=== PATIENT | female | born 1975 | race Hispanic/Latino ===

== ENCOUNTER 2019-05-24 06:15 | Emergency (ER) | payer BC ==
[~2019-05-24] VITALS: Ht 149.9 cm; Wt 52.6 kg
[~2019-05-24 06:15] MED LIST: ASPIR 8181 MG PO; COUMADIN1 MG PO; PROPRANOLOL HCL10 MG PO; ZOLOFT50 MG PO
--- OUTSIDE RECORDS SUMMARY | 2019-05-24 06:19 | XMS REPORT | Summary of Care ---
Author Author Kathie Benítez M.A. Unknown Address Unknown Phone Unavailable Care Team Providers Care Dye Machine Operator Name Role Phone BENNETT PIERCE M.D. Unavailable Unavailable DUANE HEWITT, NOAH GLOVER Unavailable Unavailable PAULETTE BINTA MRAQUEZ Unavailable Unavailable Unavailable Unavailable Functional Status Name Dates Details Functional status health issues are not documented Status: Name Dates Details Cognitive status health issues are not documented Status: Problems Name Dates Details Encounter for monitoring testosterone replacement therapy (V58.83, Z51.81) Status: Active Dizziness (780.4, R42) Status: Active Hypoglycemia (251.2, E16.2) Status: Active Weight gain (783.1, R63.5) Status: Active Aspirin long-term use (V58.66, Z79.82) Status: Active Abnormal EKG (794.31, R94.31) Status: Active Fatigue (780.79, R53.83) Status: Active Headache (784.0, R51) Status: Active 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 * Start : 09-Mar-2017 Active Lovastatin 20 MG Oral Tablet TAKE 1 TABLET DAILY AT DINNER. * Quantity: 30 Refills: 6 BENNETT PIERCE M.D. * Start : 14-Aug-2017 Active Allergies and Adverse Reactions Name Dates Details Penicillins (Allergy) Status: Active Past Medical History Name Dates Details History of depression (V11.8, Z86.59) Status: Resolved History of endometriosis (V13.29, Z87.42) Status: Resolved History of pulmonary embolism (V12.55, Z86.711) Status: Resolved History of uterine leiomyoma (V13.29, Z86.018) Status: Resolved Procedures Procedure Dates Details [QLH] CMP W/EGFR Date: 08-Aug-2017 [QLH] LIPID PANEL Date: 08-Aug-2017 [L] Vitamin D, 25-Hydroxy, Total - Esoterix Date: 08-Aug-2017 [QLH] TESTOSTERONE, TOTAL Date: 08-Aug-2017 [QLH] TSH, 3RD GENERATION W/REFLEX TO FT4 Date: 08-Aug-2017 History of hysterectomy Completed History of section Completed History of abdominoplasty Completed History of breast augmentation Completed History of salpingo-oophorectomy Completed Immunization Name Dates Details Immunizations not documented Family History Name Dates Details Family history of High cholesterol (272.0, E78.00) Status: Active Family history of hypertension (V17.49, Z82.49) Status: Active Name Dates Details Family history of diabetes mellitus (V18.0, Z83.3) Status: Active Social History Name Dates Details - Status: Name Dates Details Never smoker Vital Signs Date Test Result Details [id number] BP Systolic 107 mm[Hg] Status: Comments: Location: E; Position: Sitting BP Diastolic 75 mm[Hg] Status: Comments: Location: [facility]; Position: Sitting Height 59 in Status: Weight 120.3125 lb Status: Body Mass Index Calculated 24.3 kg/m2 Status: Body Surface Area Calculated 1.49 m2 Status: Temperature 98.3 f Status: Comments: Method: Temporal Heart Rate 74 /min Status: Comments: Location: Brachial Artery; Respiration Rate 16 /min Status: Comments: Quality: Normal Results Date Description Value Details [id number] [QLH] LIPID PANEL CHOLESTEROL, TOTAL 251 mg/dl (Above high threshold) Range: <200 HDL CHOLESTEROL 47 mg/dl (Below low threshold) Range: >50 TRIGLYCERIDES 279 mg/dl (Above high threshold) Range: <150 LDL-CHOLESTEROL 158 {MG/DL__CAL} (Above high threshold) Comments: Reference range: <100 Desirable range <100 mg/dL for patients with CHD ordiabetes and <70 mg/dL for diabetic patients withknown heart disease. LDL-C is now calculated using the Amanda calculation, which is a validated novel method providing better accuracy than the Friedewald equation in the estimation of LDL- C. Jadiel MENDOZA et al. MASON. 2013;310(19): 7739-5535 (http://education.[employer]Wire/faq/KTF809) CHOL/HDLC RATIO 5.3 {CALC} (Above high threshold) Range: <5.0 NON HDL CHOLESTEROL 204 {MG/DL__CAL} (Above high threshold) Range: <130 Comments: For patients with diabetes plus 1 major ASCVD risk factor, treating to a non-HDL-C goal of <100 mg/dL (LDL-C of <70 mg/dL) is considered a therapeutic option. :20 [[facility]] CMP W/EGFR GLUCOSE 92 mg/dl (Normal) Range: 65-99 Comments: Fasting reference interval UREA NITROGEN (BUN) 17 mg/dl (Normal) Range: 7-25 CREATININE 0.73 mg/dl (Normal) Range: 0.50-1.10 eGFR NON- 102 {ML/MIN/1.7} (Normal) Range: > OR=60 eGFR 119 {ML/MIN/1.7} (Normal) Range: > OR=60 BUN/CREATININE RATIO NOT APPLICABLE {CALC} Range: 6-22 SODIUM 138 mmol/L (Normal) Range: 135-146 POTASSIUM 4.3 mmol/L (Normal) Range: 3.5-5.3 CHLORIDE 104 mmol/L (Normal) Range: 98-110 CARBON DIOXIDE 28 mmol/L (Normal) Range: 20-31 CALCIUM 9.4 mg/dl (Normal) Range: 8.6-10.2 PROTEIN, TOTAL 7.1 g/dl (Normal) Range: 6.1-8.1 ALBUMIN 4.2 g/dl (Normal) Range: 3.6-5.1 GLOBULIN 2.9 {G/DL__CALC} (Normal) Range: 1.9-3.7 ALBUMIN/GLOBULIN RATIO 1.4 {CALC} (Normal) Range: 1.0-2.5 BILIRUBIN, TOTAL 0.4 mg/dl (Normal) Range: 0.2-1.2 ALKALINE PHOSPHATE 85 u/l (Normal) Range: 33-115 AST 18 u/l (Normal) Range: 10-30 ALT 18 u/l (Normal) Range: 6-29 :20 [[facility]] CBC (INCLUDES DIFF/PLT) WHITE BLOOD CELL COUNT 6.3 {Thousand/u} (Normal) Range: 3.8-10.8 RED BLOOD CELL COUNT 4.60 {Million/uL} (Normal) Range: 3.80-5.10 HEMOGLOBIN 13.4 g/dl (Normal) Range: 11.7-15.5 HEMATOCRIT 39.9 % (Normal) Range: 35.0-45.0 MCV 86.7 fL (Normal) Range: 80.0-100.0 MCH 29.1 pg (Normal) Range: 27.0-33.0 MCHC 33.6 g/dl (Normal) Range: 32.0-36.0 RDW 13.4 % (Normal) Range: 11.0-15.0 PLATELET COUNT 312 {Thousand/u} (Normal) Range: 140-400 MPV 11.3 fL (Normal) Range: 7.5-12.5 ABSOLUTE NEUTROPHILS 3982 {cells/uL} (Normal) Range: 7355-8652 ABSOLUTE LYMPHOCYTES 1865 {cells/uL} (Normal) Range: 850-3900 ABSOLUTE MONOCYTES 302 {cells/uL} (Normal) Range: 200-950 ABSOLUTE EOSINOPHILS 120 {cells/uL} (Normal) Range: 15-500 ABSOLUTE BASOPHILS 32 {cells/uL} (Normal) Range: 0-200 NEUTROPHILS 63.2 % (Normal) LYMPHOCYTES 29.6 % (Normal) MONOCYTES 4.8 % (Normal) EOSINOPHILS 1.9 % (Normal) BASOPHILS 0.5 % (Normal) :20 [[facility]] TSH, 3RD GENERATION W/REFLEX TO FT4 TSH, 3RD GENERATION W/REFLEX TO FT4 1.52 {MIU/L} (Normal) Comments: Reference Range > or=20 Years 0.40-4.50 Ranges First trimester 0.26-2.66 Second trimester 0.55-2.73 Third trimester 0.43-2.91 :20 [[facility]] VITAMIN D, 25-HYDROXY, LC/MS/MS VITAMIN D, 25-OH, TOTAL 21 ng/ml (Below low threshold) Range: 30-100 Comments: Vitamin D Status 25-OH Vitamin D: Deficiency: <20 ng/mLInsufficiency: 20 - 29 ng/mLOptimal: > or=30 ng/mL For 25-OH Vitamin D testing on patients on D2-supplementation and patients for whom quantitation of D2 and D3 fractions is required, the QuestAssureD(TM)25-OH VIT D, (D2,D3), LC/MS/MS is recommended: order code 61288 (patients >2yrs). For more information on this test, go to:http://education.[employer]faq/HQZ440(This link is being provided for informational/educational purposes only.) 45-[id number]:20 [Q] TESTOSTERONE, TOTAL, LC/MS/MS Comments: REPORT COMMENT:FASTING:YES TESTOSTERONE, TOTAL, LC/MS/MS 13 ng/dl Range: 2-45 Comments: This test was developed and its analytical performance characteristics have been determined by [employer]. It has not been cleared or approved by the USFood and Drug Administration. This assay has been validated pursuant to the CLIA regulations and is used for clinical purposes. Plan of Care Name Dates Details Planned Observations Planned Goals not documented Interventions Provided Labs/Procedures/Imaging* [L] Vitamin D, 25-Hydroxy, Total - Esoterix; To Be Done: 08 Aug 2017 * [QLH] CMP W/EGFR; To Be Done: 08 Aug 2017 * [QLH] LIPID PANEL; To Be Done: 08 Aug 2017 * [QLH] TESTOSTERONE, TOTAL; To Be Done: 08 Aug 2017 * [QLH] TSH, 3RD GENERATION W/REFLEX TO FT4; To Be Done: 08 Aug 2017 * [QLH] CBC (INCLUDES DIFF/PLT); Done: 09 Aug 2017 Plan* For labs * To increase NSAIDs otc plus Buspar * Exercise for stress and tension Instructions Name Dates Details Instructions not documented Encounters Appointment; BINTA CALDWELL P.A. Encounter Diagnosis: Problem not documented On: 09-Mar-2017 10:00 Appointment; [facility] [place] [place] Encounter Diagnosis: Problem not documented On: 09-Mar-2017 16:00 Appointment; BINTA CALDWELL P.A. Encounter Diagnosis: Problem not documented On: 24-Mar-2017 16:00 Appointment; BINTA CALDWELL P.A. Encounter Diagnosis: Problem not documented On: 12-Apr-2017 11:00 Appointment; SUNG SALTER M.D. Encounter Diagnosis: Problem not documented On: 09-May-2017 10:00 Appointment; BINTA CALDWELL P.A. Encounter Diagnosis: Problem not documented On: 08-Aug-2017 14:00 Appointment; BENNETT PIERCE M.D. Encounter Diagnosis: Problem not documented On: 08-Aug-2017 16:00
[2019-05-24] MEDS ORDERED: FAMOTIDINE 20 MG/2 ML VIAL IV ONE (07:30)
[2019-05-24] MEDS ORDERED: ONDANSETRON HCL INJ 2MG/ML 2ML 2 MG/ML VIAL IV ONE (07:30)
[2019-05-24 07:51] LABS: BASOPHILS % 0.7 % (0.0-1.0); EOSINOPHILS # (AUTO) 0.2 (0.0-0.4); EOSINOPHILS % 2.7 % (0.0-6.0); HEMATOCRIT 37.8 % (34.2-44.1); HEMOGLOBIN 12.8 g/dL (12.0-16.0); LYMPHOCYTES # (AUTO) 1.4 (1.0-3.2); LYMPHOCYTES % 23.1 % (18.0-39.1); MEAN CORPUSCULAR HEMOGLOBIN 29.5 pg (28-32); MEAN CORPUSCULAR HGB CONC 33.9 g/dL (31-35); MEAN CORPUSCULAR VOLUME 87.1 fL (81-99); MONOCYTES # (AUTO) 0.3 (0.2-0.8); MONOCYTES % 5.2 % (4.4-11.3); NEUTROPHILS # (AUTO) 4.1 (2.1-6.9); NEUTROPHILS % 67.8 % (38.7-80.0); PLATELET COUNT 291 x10e3/uL (140-360); RED BLOOD COUNT 4.34 x10e6/uL (3.6-5.1); RED CELL DISTRIBUTION WIDTH 13.3 % (11.7-14.4)
[2019-05-24 08:14] LABS: ALANINE AMINOTRANSFERASE 14 IU/L (0-55); ALBUMIN 3.9 g/dL (3.5-5.0); ALBUMIN/GLOBULIN RATIO 1.2 (0.8-2.0); ALKALINE PHOSPHATASE 79 IU/L (40-150); ANION GAP 13.6 mmol/L (8-16); BLOOD UREA NITROGEN 15 mg/dL (7-26); BUN/CREATININE RATIO 20 (6-25); CALCIUM 9.3 mg/dL (8.4-10.2); CARBON DIOXIDE 23 mmol/L (22-29); CHLORIDE 102 mmol/L (98-107); CREATININE, SERUM 0.76 mg/dL (0.57-1.11); EST GLOMERULAR FILTRATION RATE > 60 ML/MIN (60-); GLUCOSE 112 mg/dL (74-118); POTASSIUM 3.6 mmol/L (3.5-5.1); SODIUM 135 mmol/L (136-145)
[2019-05-24 08:16] LABS: CLARITY,URINE HAZY (CLEAR); COLOR,URINE YELLOW (YELLOW)
[2019-05-24 08:17] LABS: BILIRUBIN,URINE NEGATIVE (NEGATIVE); KETONES,URINE NEGATIVE (NEGATIVE); LEUKOCYTE ESTERASE ,URINE NEGATIVE (NEGATIVE); NITRITE,URINE NEGATIVE (NEGATIVE); PROTEIN,URINE DIPSTICK NEGATIVE (NEGATIVE); URINE UROBILINOGEN 0.2 mg/dL (0.2 - 1)
[2019-05-24 08:18] LABS: BACTERIA,URINE MANY /HPF; EPITHELIAL CELLS,URINE MODERATE /LPF; RBC,URINE 0-5 /HPF (0-5)
--- NOTE | 2019-05-24 09:00 | Diagnostic Imaging Report ---
EXAMINATION: CHEST 2 VIEWS INDICATION: Fever COMPARISON: None FINDINGS: LINES/TUBES:None LUNGS:The lungs are well-inflated. No focal consolidation or pulmonary edema. PLEURA:No pleural effusion or pneumothorax. MEDIASTINUM:The cardiomediastinal silhouette appears normal in size and shape. BONES/SOFT TISSUES:No acute osseous injury. ABDOMEN:No free air under the diaphragm. IMPRESSION: No focal pneumonia or pulmonary edema. Signed by: Nia Payne MD on 05/24/2019 8:56 AM
--- NOTE | 2019-05-24 09:44 | Diagnostic Imaging Report ---
EXAM: CT Abdomen and Pelvis WITH intravenous contrast INDICATION: Abdominal pain COMPARISON: None. TECHNIQUE: Abdomen and pelvis were scanned utilizing a multidetector helical scanner from the lung base to the pubic symphysis after administration of IV contrast. Coronal and sagittal reformations were obtained. Routine protocol was performed. Scan was performed during portal venous phase. IV CONTRAST: 100mL of Isovue 370 ORAL CONTRAST: Water RADIATION DOSE: Total DLP: (DLP x 0.015 x size factor) mGy*cm Dose modulation, iterative reconstruction, and/or weight based adjustment of the mA/kV was utilized to reduce the radiation dose to as low as reasonably achievable. FINDINGS: LOWER THORAX: Partially visualized right breast implant. No lung consolidation. HEPATOBILIARY: Diffuse hepatic steatosis. 5 mm right hepatic hypodensity (series 2 image 19) is too small to characterize but likely represents a cyst. No other focal liver lesions. Normal gallbladder. SPLEEN: No splenomegaly. PANCREAS: No focal masses or ductal dilatation. ADRENALS: No adrenal nodules. KIDNEYS/URETERS: No hydronephrosis, stones, or solid mass lesions. PELVIC ORGANS/BLADDER: 2.3 cm left adnexal cystic structure likely represents a follicle. PERITONEUM / RETROPERITONEUM: No free air or fluid. LYMPH NODES: No lymphadenopathy. VESSELS: Unremarkable. GI TRACT: No distention or wall thickening. BONES AND SOFT TISSUES: Unremarkable. IMPRESSION: No acute findings in the abdomen or pelvis. Hepatic steatosis. Signed by: Nia Payne MD on 05/24/2019 9:41 AM
[2019-05-24] MEDS ORDERED: SODIUM CHLORIDE 0.9% 50ML 50 ML ONE (09:54)
[2019-05-24] MEDS ORDERED: IOPAMIDOL 370 MG/ML 200 ML INFUS..BTL INJ ONE (09:54)
== END 2019-05-24 09:30 | disposition home or self-care (01) ==
LOC: ER 06:15
DX: R10.13 Epigastric pain (principal); R11.0 Nausea; N30.90 Cystitis, unspecified without hematuria
CPT/HCPCS: 36415; 71046; 74177; 80053; 81001; 81025; 83690; 85025; 99284; J2405; Q9967

== ENCOUNTER 2020-05-07 17:25 | Emergency (ER) | payer BC ==
[~2020-05-07] VITALS: Ht 149.9 cm; Wt 52.6 kg
--- NOTE | 2020-05-07 17:31 | Emergency Department Note ---
History of Present Illnes History of Present Illness History of Present Illness This is a 44 year old female presents to the ED for palpitations with SOB . prior to arrival. Diastolic pressure of 61 mmHg . PMH of PE Historian: Patient Arrival Mode: Car Legislative Analyst Required: No Onset (how long ago): second(s) Radiation: Reports non-radiation Severity: mild Onset quality: sudden Timing of current episode: constant Progression: improving Chronicity: new Context: Reports hx of DVT/PE Relieving factors: none Exacerbating factors: none Associated symptoms: Reports denies other symptoms, Reports shortness of breath (SUNITA REYES DO) Past Medical/Family History Physician Review I have reviewed the patient's past medical and family history. Any updates have been documented here. (SUNITA REYES DO) Past Medical History Recent Fever: No Clinical Suspicion of Infectio: No New/Unexplained Change in Ment: No Past Medical History: Anxiety, Depression, DVT/PE Other Medical History: PULMONARY EMBOLISM FROM [id number] Panic Attacks OVERACTIVE BLADDER Past Surgical History: Hysterectomy, Other Surgery: tummy tuck breast augmentation; (SUNITA REYES DO) Social History Smoking Cessation: Never Smoker Alcohol Use: None Any Illegal Drug Use: No (SUNITA REYES DO) Other Last Tetanus: UNK (SUNITA REYES DO) Review of Systems Review of Systems Constitutional: Reports no symptoms EENTM: Reports no symptoms Cardiovascular: Reports palpitations Respiratory: Reports dyspnea Gastrointestinal: Reports no symptoms Genitourinary: Reports no symptoms Musculoskeletal: Reports no symptoms Integumentary: Reports no symptoms Neurological: Reports no symptoms Psychological: Reports no symptoms Endocrine: Reports no symptoms Hematological/Lymphatic: Reports no symptoms (SUNITA REYES DO) Physical Exam Related Data Allergies: Coded Allergies: Penicillins (Verified Adverse Reaction, Mild, VOMITING, 09/10/15) Vital signs reviewed: Yes (SUNITA REYES DO) Physical Exam CONSTITUTIONAL Constitutional: Present well-developed, Present well-nourished HENT HENT: Present normocephalic, Present atraumatic, Present oropharynx clear/moist, Present nose normal HENT L/R: Present left ext ear normal, Present right ext ear normal EYES Eyes: Reports PERRL, Reports conjunctivae normal NECK Neck: Present ROM normal PULMONARY Pulmonary: Present effort normal, Present breath sounds normal CARDIOVASCULAR Cardiovascular: Present regular rhythm, Present heart sounds normal, Present capillary refill normal, Present normal rate GASTROINTESTINAL Abdominal: Present soft, Present nontender, Present bowel sounds normal GENITOURINARY Genitourinary: Present exam deferred SKIN Skin: Present warm, Present dry MUSCULOSKELETAL Musculoskeletal: Present ROM normal NEUROLOGICAL Neurological: Present alert, Present oriented x 3, Present no gross motor or sensory deficits PSYCHOLOGICAL Psychological: Present mood/affect normal, Present judgement normal (REYES,SUNITA DO) Results Laboratory Laboratory Laboratory Tests Test 05/07/20 17:30 White Blood Count 7.90 x10e3/uL (4.8-10.8) Red Blood Count 4.60 x10e6/uL (3.6-5.1) Hemoglobin 13.3 g/dL (12.0-16.0) Hematocrit 40.2 % (34.2-44.1) Mean Corpuscular Volume 87.4 fL (81-99) Mean Corpuscular Hemoglobin 28.9 pg (28-32) Mean Corpuscular Hemoglobin Concent 33.1 g/dL (31-35) Red Cell Distribution Width 13.3 % (11.7-14.4) Platelet Count 364 x10e3/uL (140-360) Neutrophils (%) (Auto) 52.9 % (38.7-80.0) Lymphocytes (%) (Auto) 38.1 % (18.0-39.1) Monocytes (%) (Auto) 5.8 % (4.4-11.3) Eosinophils (%) (Auto) 2.0 % (0.0-6.0) Basophils (%) (Auto) 0.6 % (0.0-1.0) Neutrophils # (Auto) 4.2 (2.1-6.9) Lymphocytes # (Auto) 3.0 (1.0-3.2) Monocytes # (Auto) 0.5 (0.2-0.8) Eosinophils # (Auto) 0.2 (0.0-0.4) Basophils # (Auto) 0.1 (0.0-0.1) Absolute Immature Granulocyte (auto 0.05 x10e3/uL (0-0.1) Prothrombin Time 12.2 seconds (11.9-14.5) Prothromb Time International Ratio 0.87 Activated Partial Thromboplast Time 26.4 seconds (23.8-35.5) Urine Color Yellow (YELLOW) Urine Clarity Clear (CLEAR) Urine pH 7 (5 - 7) Urine Specific [place] 1.020 (1.010-1.025) Urine Protein Negative (NEGATIVE) Urine Glucose (UA) Negative (NEGATIVE) Urine Ketones Negative (NEGATIVE) Urine Blood Trace (NEGATIVE) Urine Nitrite Negative (NEGATIVE) Urine Bilirubin Negative (NEGATIVE) Urine Urobilinogen 0.2 mg/dL (0.2 - 1) Urine Leukocyte Esterase Negative (NEGATIVE) Urine RBC 0-5 /HPF (0-5) Urine WBC None /HPF (0-5) Urine Epithelial Cells None /LPF (NONE) Urine Bacteria Moderate /HPF (NONE) Urine Test Negative (NEGATIVE) Sodium Level 138 mmol/L (136-145) Potassium Level 3.6 mmol/L (3.5-5.1) Chloride Level 104 mmol/L (98-107) Carbon Dioxide Level 21 mmol/L (22-29) Anion Gap 16.6 mmol/L (8-16) Blood Urea Nitrogen 18 mg/dL (7-26) Creatinine 0.84 mg/dL (0.57-1.11) Estimat Glomerular Filtration Rate > 60 ML/MIN (60-) BUN/Creatinine Ratio 21 (6-25) Glucose Level 101 mg/dL (74-118) Calcium Level 9.2 mg/dL (8.4-10.2) Total Bilirubin 0.2 mg/dL (0.2-1.2) Aspartate Amino Transf (AST/SGOT) 16 IU/L (5-34) Alanine Aminotransferase (ALT/SGPT) 19 IU/L (0-55) Alkaline Phosphatase 99 IU/L (40-150) Creatine Kinase 88 IU/L (29-168) Creatine Kinase MB 1.20 ng/mL (0-5.0) Troponin I < 0.001 ng/mL (0-0.300) Total Protein 8.0 g/dL (6.5-8.1) Albumin 4.2 g/dL (3.5-5.0) Globulin 3.8 g/dL (2.3-3.5) Albumin/Globulin Ratio 1.1 (0.8-2.0) Lab results reviewed: Yes (TOMASZ BRITTON MD) Imaging Imaging results reviewed: Yes Impressions Procedure: [id number] CT/CT CHEST W Exam Date: 05/07/20 Exam Time: 1835 REPORT STATUS: Signed CT chest pulmonary embolism protocol CPT code: 55420 INDICATION: ^pe protocol, pt with h/o pe in past, now with sob ^[id number] ^1834 ^Y TECHNIQUE: Thin collimation axial images obtained through the level of the pulmonary arteries with additional imaging through the chest following the uneventful administration of 100 cc of low osmolar, nonionic intravenous contrast. Images reconstructed into coronal and sagittal MIPs for complete evaluation of the tortuous and overlapping pulmonary vascular structures and to reduce patient radiation dose. RADIATION DOSE: Total DLP: 386.6 mGy*cm Estimated effective dose: (DLP x 0.015 x size factor) mSv CTDIvol has been reviewed. It is below the limits set by the Radiation Protocol Committee (RPC). Dose reduction techniques used: Automated exposure control, adjustment of the mAs and/or kVp according to patient size, standardized low-dose protocol, and/or iterative reconstruction technique. COMPARISON: CT abdomen 05/24/2019. FINDINGS: Pulmonary artery: No filling defects are appreciated within the main, left, right, lobar or visualized segmental pulmonary arteries to suggest embolism. Aorta: The thoracic aorta is not aneurysmal. No evidence for dissection. The left vertebral artery arises to be from the aortic arch. Lymph nodes: No enlarged axillary, supraclavicular, mediastinal, or hilar lymph nodes. Thyroid: Visualized portions are normal. Mediastinum: The heart is normal in size. No pericardial effusion. The esophagus is collapsed but normal in appearance. Lungs: Right Lung: Mild apical pleural-parenchymal thickening. No infiltrate or nodule. Left Lung: Mild apical pleural-parenchymal thickening. No infiltrate or nodule. Small focus of subsegmental atelectasis in the inferior lingula. Airways: Clear. Pleura: No pleural effusion or pleural-based mass. Abdomen: Visualized portions are normal in appearance. Bones: No focal osseous lesions. Soft tissues: Bilateral breast prostheses appear intact.. IMPRESSION: 1. No evidence of pulmonary embolus or aortic dissection. 2. Mild biapical pleural parenchymal thickening. Please correlate with history of reactive airways disease. No evidence of pulmonary infiltrate or nodule. Signed by: Dr. Pam Bae MD on 05/07/2020 7:05 PM Dictated By: PAM BAE MD 04 Transcribed By: OPHELIA on 05/07/201904 COPY TO: TOMASZ BRITTON MD~ (TOMASZ BRITTON MD) Procedures 12 Lead ECG Interpretation ECG Interpretation : ECG: ECG 1 Legislative Analyst: Interpreted by ED physician Date: May 07, 2020 Time: 18:02 Prior ECG tracings: reviewed Rhythm: sinus rhythm Rate: normal BPM: 80 QRS axis: normal ST segments normal: Yes T waves normal: No T waves flattening: all, I, II, III, aVR, aVL, aVF, V1-V6, V1, V2, V3, V4, V5 Clinical Impression: non-specific ECG (SUNITA REYES DO) Assessment & Plan Medical Decision Making MDM 44 yom presents with palpitations. CMP, CBC, EKG, and cardiac enzymes ordered for consideration of ACS, PE, costocondritis, Chest wall pain, and pneumothorax considered. labs, imaging and EKG reviewed . (SUNITA REYES DO) Assessment & Plan Final Impression: (1) Palpitations (SUNITA REYES DO) Depart Disposition: HOME, SELF-penitentiary Meds Reported Medications Aspirin (ASPIR 81) 81 Mg Tablet.dr, 81 MG PO DAILY 03/17/17 Sertraline Hcl (ZOLOFT) 50 Mg Tablet, 50 MG PO DAILY, #30 TAB 03/17/17 Propranolol Hcl (PROPRANOLOL HCL) 10 Mg Tablet, 10 MG PO BID, TAB 03/17/17 SUNITA REYES DO May 07, 2020 17:31 TOMASZ BRITTON MD May 07, 2020 18:47
[2020-05-07 18:02] LABS: BASOPHILS # (AUTO) 0.1 (0.0-0.1); BASOPHILS % 0.6 % (0.0-1.0); EOSINOPHILS # (AUTO) 0.2 (0.0-0.4); HEMATOCRIT 40.2 % (34.2-44.1); HEMOGLOBIN 13.3 g/dL (12.0-16.0); LYMPHOCYTES % 38.1 % (18.0-39.1); MEAN CORPUSCULAR HEMOGLOBIN 28.9 pg (28-32); MEAN CORPUSCULAR HGB CONC 33.1 g/dL (31-35); MEAN CORPUSCULAR VOLUME 87.4 fL (81-99); MONOCYTES # (AUTO) 0.5 (0.2-0.8); MONOCYTES % 5.8 % (4.4-11.3); NEUTROPHILS # (AUTO) 4.2 (2.1-6.9); NEUTROPHILS % 52.9 % (38.7-80.0); PLATELET COUNT 364 x10e3/uL (140-360); RED CELL DISTRIBUTION WIDTH 13.3 % (11.7-14.4)
--- OUTSIDE RECORDS SUMMARY | 2020-05-07 18:05 | XMS REPORT | Summary of Care ---
Author Author [facility] Organization [facility] Address Unknown Phone Unavailable Encounter HQ Encntr_aliguera(FIN) [id number] Date(s): 06/23/18 - 06/23/18 [facility] [address] [place] [address]- Attending Physician: Physician, Non Associated MD Referring Physician: Physician, Non Associated MD Vital Signs No data available for this section Problem List No data available for this section Allergies, Adverse Reactions, Alerts Substance Reaction Severity Status penicillins Active Medications No data available for this section Results No data available for this section Immunizations No data available for this section Procedures No data available for this section Social History No data available for this section Assessment and Plan No data available for this section
--- OUTSIDE RECORDS SUMMARY | 2020-05-07 18:05 | XMS REPORT | Summary of Care ---
Author Author [facility] Organization [facility] Address Unknown Phone Unavailable Encounter HQ Encntr_alias(FIN) [id number] Date(s): 02/15/17 - 02/15/17 [facility] [place] [address] [place] [phone] Discharge Disposition: Home or Self Care Attending Physician: Jamin Silveira MD Vital Signs No data available for [...]
--- OUTSIDE RECORDS SUMMARY | 2020-05-07 18:05 | XMS REPORT | Continuity of Care Document ---
Author Author [facility] t Organization [facility] Address [address] [place] [address] Phone Unavailable Care Team Providers Care Assistant Sales Center Manager Name Role Phone Wes ZEPEDA PCP MURIEL LAWS D.O. Attphys Unavailable MIMI REYES APRN Attphys Unavailable Justyna Fernández Attphys LEAH MANN M.D. Attphys Unavailable MILDRED CLARK M.D. Attphys Unavailable SUNITA REYES Attphys Unavailable Jared Granda Attphys MIQUEL GRANDA M.D. Attphys Unavailable Physician, Associated Non Attphys Unavailable BINTA CALDWELL P.A. Attphys Unavailable Fernando Garcia Attphys BENNETT PIERCE M.D. Attphys Unavailable SUNG SALTER M.D. Attphys Unavailable [place]-[facility], ECHO Attphys Unavailable Richard Zepeda Attphys Payers Payer Name Policy Type Policy Number Effective Date Expiration Date S [facility] [place] [employer] [facility] [id number] 2014 00:00:00 [facility] Problems Condition Name Condition Details Condition Category Status Onset Date Resolution Date Last Treatment Date Treating Clinician Comments Source HST - G0399 T - G0399 Active 12/13/2019 [facility] Active 2019-12-13 00:00:00 2019-12-18 10:31:00 Marce Heath COLON / MAC COLO N / MAC Active 02/26/2019 [facility] Active 2019-02-26 00:00:00 2019-02-28 08:15:00 Marce Heath R10.811 / R10.813 / R82.90 R10 .811 / R10.813 / R82.90 Active 06/11/2018 [facility] Active 2018-06-11 00:00:00 2018-07-24 15:48:00 Marce Heath 611.71 - MASTODYNIA 611. 71 - MASTODYNIA Active 04/30/2018 [facility] Active 2018-04-30 00:01:00 2018-06-07 11:43: 00 Marce Heath M54.6 - PAIN IN THORACIC SPINE M54.6 - PAIN IN THORACIC SPINE Active 02/07/2017 [facility] [place] Active 2017-02-07 00: 01:00 2017-02-15 09:49:00 Marce Heath Anxiety Anxiety Problem Active [facility] History of depression History of depression Problem Resolved [facility] History of endometriosis History of endometriosis Problem Resolved [facility] History of pulmonary embolism History of pulmonary embolism Problem Resolved [facility] History of uterine leiomyoma History of uterine leiomyoma Problem Re solved [facility] Encounter for monitoring testosterone replacement ther apy Encounter for monitoring testosterone replacement therapy Problem Active [facility] Hypoglycemia Hypoglycemia Problem Active [facility] Aspirin long-term use Aspirin long-term use Problem Active [facility] Abnormal EKG Abnormal EKG Problem Active [facility] Elevated testosterone level in female Elevated testosterone level in female Problem Active [facility] Cervical cancer screening Cervical cancer screening Problem Active [facility] Need for Tdap vaccination Need for Tdap vaccination Problem Active [facility] Sensation of pressure in bladder area Sensation of pressure in bladder area Problem Active [facility] Atrophic vaginitis Atrophic vaginitis Problem Active [facility] Abdominal tenderness, RLQ (right lower quadrant) Abdom inal tenderness, RLQ (right lower quadrant) [facility] Colon cancer screening Colon cancer screening Problem Active [facility] Fatigue Fatigue Problem Active [facility] Multiple joint pain Multiple joint pain Problem Active [facility] Screening for HIV (human immunodeficiency virus) Scree katherine for HIV (human immunodeficiency virus) Problem Active [facility] Screening for breast cancer Screening for breast cancer Problem Active [facility] Tenosynovitis, de Quervain Tenosynovitis, de Quervain Problem Active [facility] Neck pain, bilateral Neck pain, bilateral Problem Active [facility] Moderate major depression Moderate major depression Problem Active [facility] H/O breast implant H/O breast implant Problem Active [facility] Mastalgia in female Mastalgia in female Problem Active [facility] Pelvic pain in female Pelvic pain in female Problem Active [facility] UTI symptoms UTI symptoms Problem Active [facility] Low back pain Low back pain Problem Active [facility] Dysuria Dysuria Problem Active [facility] Snoring Snoring Problem Active [facility] Urinary frequency Urinary frequency Problem Active [facility] Stress incontinence, female Stress incontinence, female Problem Active [facility] Anxiety disorder due to medical condition Anxiety diso rder due to medical condition Problem Active [facility] Hyperlipidemia Hyperlipidemia Problem Active [facility] Vitamin D deficiency Vitamin D deficiency Problem Active [facility] Urinary incontinence Urinary incontinence Problem Active [facility] Urinary urgency Urinary urgency Problem Active [facility] Vestibulitis, vulvar Vestibulitis, vulvar Problem Active [facility] Nocturia Nocturia Problem Active [facility] Interstitial cystitis Interstitial cystitis Problem Active [facility] Pelvic floor dysfunction Pelvic floor dysfunction Problem Active [facility] Abdominal pain (finding) Abdo mika pain (finding) Resolved Problem 12/20/2019 [facility] Problem Resolved 2019-12-20 22: 22:13 Marce Heath Depression - motion (qualifier value) Depression - motion (qualifier value) Resolved Problem 12/20/2019 [facility] Problem Resolved 2019-12-20 22:22:13 Lana Heath Diarrhea (finding) Diar jimy (finding) Resolved Problem 12/20/2019 [facility] Problem Resolved 2019-12-20 22:22:13 Marce Heath Endometriosis (disorder) Endo metriosis (disorder) Resolved Problem 12/20/2019 [facility] Problem Resolved 2019-12-20 22: 22:13 Marce Heath History of - pulmonary embolus (context-dependent kayla gory) History of - pulmonary embolus (context-dependent category) Resolved Problem 12/20/2019 [facility] Problem Resolved 2019-12-20 22:22: 13 Marce Heath Uterine leiomyoma (disorder) U terine leiomyoma (disorder) Resolved Problem 12/20/2019 [facility] Problem Resolved 2019-12-20 22:22:13 [facility] Allergies, Adverse Reactions, Alerts Allergy Name Allergy Type Status Severity Reaction(s) Onset Date Inacti ve Date Treating Clinician Comments Source Penicillin Propensity to adverse reactions Active Mild VOMI TING 2015-09-10 00:00:00 [facility] Penicillins Allergy to drug (finding) Active Vomiting [facility] penicillins penicillins Active [facility] Family History Family Member Diagnosis Comments Start Date Stop Date Source Mother Family history of High cholesterol [facility] Mother Family history of hypertension [facility] Brother Family history of diabetes mellitus [facility] Social History Social Habit Start Date Stop Date Quantity Comments Source Social History 2018-06-08 04:59:00 2018-06-08 04:59:00 [facility] Smoking Status Start Date Stop Date Source [facility] smoked tobacco (finding) [facility] Medications Ordered Medication Name Filled Medication Name Start Date Stop Da te Current Medication? Ordering Clinician Indication Dosage Frequency Signature (SIG) Comments Components Source Phenazopyridine HCl - 100 MG Oral Tablet Phenazopyridi ne HCl - 100 MG Oral Tablet 2020-04-30 00:00:00 Yes [facility] Clotrimazole-Betamethasone 1-0.05 % External Cream Adri trimazole-Betamethasone 1- 0.05 % External Cream 2020-04-03 00:00:00 Yes MURIEL LAWS D.O. Q0.5D APPLY AND RUB IN A THIN FILM TO AFFECTED AREAS TWICE DAILY.(AM AND PM). 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 [facility] Vitamin D (Ergocalciferol) 1.25 MG (26599 UT) Oral Cap regino Vitamin D (Ergocalciferol) 1.25 MG (80940 UT) Oral Capsule 2019-04-19 00:00:00 Yes MIMI REYES APRN 1 TAKE 1 CAPSULE WEEKLY [facility] Sodium Chloride 0.9% IV 1,000 mL 2019-02-28 14:01:00 No 1,000 mL, Rate: 25 ml/hr, Infuse over: 40 hr, Route: IV, Dosing Weight 53.182 kg, Total Volume: 1,000, Start date: 02/28/19 9:01:00 CDT, Duration: 1 day, Stop date: 03/01/19 9:00:00 CDT, 1.51, m2 Marce Heath Phenazopyridine hydrochloride 200 MG Oral Tablet [Pyridium] 2019-02-27 17:47:00 Yes 200 mg = 1 tab, PO, TID, PRN Dysuria Marce Heath Aspirin 81 MG Enteric Coated Tablet 2019-02-27 17:47:00 Yes 81 mg = 1 tab, PO, Daily [facility] Kumar Estradiol 0.1 MG/ML Vaginal Cream 2019-02-27 17:46:00 Yes 1 gm =, VAG, Bedtime, Insert 1 gram in vagina using applicator twice weekly at bedtime Marce Heath sertraline 50 mg oral tablet 2019-02-27 17:46:00 Yes 50 mg = 1 tab, PO, Daily [facility] Kumar dicyclomine 20 mg oral tablet 2019-02-27 17:46:00 Yes 20 mg = 1 tab, PO, BID [facility] Kumar Sertraline HCl - 50 MG Oral Tablet Sertraline HCl - 50 MG Or al Tablet 2017-03-09 00:00:00 Yes 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 [facility] Aspirin (Aspir 81) 81 Mg Tablet. Aspirin (Aspir 81) 81 Mg Tablet. 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 1 QD TAKE 1 TABLET DAILY [facility] Warfarin Sodium (Coumadin) 1 Mg Tablet, 1 Mg Oral Warf ceferino Sodium (Coumadin) 1 Mg Tablet, 1 Mg Oral 2017-03-17 00:00:00 No 1 Tod ay At 5:00PM [facility] Immunizations Ordered Immunization Name Filled Immunization Name Date Status Comments Source Tdap 2018-03-06 09:38:00 Completed [facility] Influenza Unknown Completed refused 07/18/19 [facility] Vital Signs Vital Name Observation Time Observation Value Comments Source Systolic blood pressure 2020-04-30 12:47:00 122 mm[Hg] Loca tion: LUE; Position: Sitting [facility] Diastolic blood pressure 2020-04-30 12:47:00 80 mm[Hg] Loc ation: LUE; Position: Sitting [facility] Body height 2020-04-30 12:47:00 59 [in_us] [facility] Weight 2020-04-30 12:47:00 115 [lb_av] [facility] Body mass index (BMI) [Ratio] 2020-04-30 12:47:00 23.23 kg/m2 [facility] Body temperature 2020-04-30 12:47:00 98.3 [degF] Method: Temporal [facility] Heart Rate 2020-04-30 12:47:00 91 /min [facility] Systolic blood pressure 2020-04-02 10:40:00 109 mm[Hg] Loca tion: LUE; Position: Sitting [facility] Diastolic blood pressure 2020-04-02 10:40:00 74 mm[Hg] Loc ation: LUE; Position: Sitting [facility] Body height 2020-04-02 10:40:00 59 [in_us] [facility] Weight 2020-04-02 10:40:00 116 [lb_av] [facility] Body mass index (BMI) [Ratio] 2020-04-02 10:40:00 23.43 kg/m2 [facility] Body temperature 2020-04-02 10:40:00 97.2 [degF] Method: Temporal [facility] Heart Rate 2020-04-02 10:40:00 85 /min [facility] Systolic blood pressure 2020-03-27 14:29:00 102 mm[Hg] Loca tion: LUE; Position: Sitting [facility] Diastolic blood pressure 2020-03-27 14:29:00 69 mm[Hg] Loc ation: LUE; Position: Sitting [facility] Body height 2020-03-27 14:29:00 59 [in_us] [facility] Weight 2020-03-27 14:29:00 113.4 [lb_av] [facility] Body mass index (BMI) [Ratio] 2020-03-27 14:29:00 22.9 kg/m2 [facility] Body temperature 2020-03-27 14:29:00 98.6 [degF] Method: Temporal [facility] Heart Rate 2020-03-27 14:29:00 77 /min [facility] Respiratory rate 2020-03-27 14:29:00 16 /min [facility] Systolic blood pressure 2019-11-23 11:15:00 114 mm[Hg] Loca tion: SANDRINE; Position: Sitting [facility] Diastolic blood pressure 2019-11-23 11:15:00 78 mm[Hg] Loc ation: SANDRINE; Position: Sitting [facility] Body height 2019-11-23 11:15:00 59 [in_us] [facility] Weight 2019-11-23 11:15:00 116.125 [lb_av] [facility] Body mass index (BMI) [Ratio] 2019-11-23 11:15:00 23.45 kg/m2 [facility] Body temperature 2019-11-23 11:15:00 98 [degF] Method: Temporal [facility] Heart Rate 2019-11-23 11:15:00 77 /min [facility] Respiratory rate 2019-11-23 11:15:00 16 /min [facility] BP Systolic 2019-10-05 10:58:00 119 mm[Hg] Location: SANDRINE; Positi on: Sitting [facility] BP Diastolic 2019-10-05 10:58:00 80 mm[Hg] Location: SANDRINE; Positi on: Sitting [facility] Height 2019-10-05 10:58:00 59 [in_us] [facility] Weight 2019-10-05 10:58:00 115.3125 [lb_av] [facility] Body Mass Index Calculated 2019-10-05 10:58:00 23.29 kg/m2 [facility] Temperature 2019-10-05 10:58:00 98 [degF] Method: Temporal [facility] Heart Rate 2019-10-05 10:58:00 77 /min [facility] Respiration Rate 2019-10-05 10:58:00 16 /min [facility] BP Systolic 2019-07-18 16:10:00 109 mm[Hg] Location: LUE; Positi on: Sitting [facility] BP Diastolic 2019-07-18 16:10:00 76 mm[Hg] Location: LUE; Positi on: Sitting [facility] Height 2019-07-18 16:10:00 59 [in_us] [facility] Weight 2019-07-18 16:10:00 116.5 [lb_av] [facility] Body Mass Index Calculated 2019-07-18 16:10:00 23.53 kg/m2 [facility] Heart Rate 2019-07-18 16:10:00 84 /min [facility] Temperature 2019-07-18 16:10:00 99.1 [degF] Method: Temporal [facility] Respiration Rate 2019-07-18 16:10:00 16 /min [facility] BP Systolic 2019-05-17 15:49:00 112 mm[Hg] Location: RUE; Positi on: Sitting [facility] BP Diastolic 2019-05-17 15:49:00 78 mm[Hg] Location: RUE; Positi on: Sitting [facility] Height 2019-05-17 15:49:00 59 [in_us] [facility] Weight 2019-05-17 15:49:00 115.125 [lb_av] [facility] Body Mass Index Calculated 2019-05-17 15:49:00 23.25 kg/m2 [facility] Heart Rate 2019-05-17 15:49:00 80 /min [facility] BP Systolic 2019-04-17 10:28:00 116 mm[Hg] Location: LUE; Positi on: Sitting [facility] BP Diastolic 2019-04-17 10:28:00 81 mm[Hg] Location: LUE; Positi on: Sitting [facility] Height 2019-04-17 10:28:00 59 [in_us] [facility] Weight 2019-04-17 10:28:00 115 [lb_av] [facility] Body Mass Index Calculated 2019-04-17 10:28:00 23.23 kg/m2 [facility] Temperature 2019-04-17 10:28:00 97.8 [degF] Method: Temporal [facility] Heart Rate 2019-04-17 10:28:00 74 /min [facility] Respiration Rate 2019-04-17 10:28:00 15 /min [facility] Systolic (mm Hg) 2019-02-28 15:56:00 Keanu rial Kumar Diastolic (mm Hg) 2019-02-28 15:56:00 Mem orial [place] Respitory Rate 2019-02-28 15:56:00 Memori al Kumar Systolic (mm Hg) 2019-02-28 15:41:00 Keanu rial Kumar Diastolic (mm Hg) 2019-02-28 15:41:00 Mem orial Kumar Respitory Rate 2019-02-28 15:41:00 Memori al [place] Systolic (mm Hg) 2019-02-28 15:26:00 Keanu rial Kumar Diastolic (mm Hg) 2019-02-28 15:26:00 Mem orial Kumar Respitory Rate 2019-02-28 15:26:00 Memori al [place] Heart Rate 2019-02-28 14:02:00 [facility] Height 2019-02-27 17:45:00 149.86 cm [facility] Weight 2019-02-27 17:45:00 [facility] Calculated 2019-02-27 17:45:00 Memori al [place] BP Systolic 2019-02-26 12:10:00 98 mm[Hg] Location: RUE; Positi on: Sitting [facility] BP Diastolic 2019-02-26 12:10:00 60 mm[Hg] Location: RUE; Positi on: Sitting [facility] Height 2019-02-26 12:10:00 59 [in_us] [facility] Weight 2019-02-26 12:10:00 115.375 [lb_av] [facility] Body Mass Index Calculated 2019-02-26 12:10:00 23.3 kg/m2 [facility] Temperature 2019-02-26 12:10:00 98.7 [degF] Method: Tympanic [facility] BP Systolic 2019-02-25 14:03:00 94 mm[Hg] Location: LUE; Positi on: Sitting [facility] BP Diastolic 2019-02-25 14:03:00 61 mm[Hg] Location: LUE; Positi on: Sitting [facility] Height 2019-02-25 14:03:00 59 [in_us] [facility] Weight 2019-02-25 14:03:00 117 [lb_av] [facility] Body Mass Index Calculated 2019-02-25 14:03:00 23.63 kg/m2 [facility] Heart Rate 2019-02-25 14:03:00 84 /min Location: L Radial; Q uality: Normal [facility] BP Systolic 2019-02-21 15:52:00 119 mm[Hg] Location: LUE; Positi on: Sitting [facility] BP Diastolic 2019-02-21 15:52:00 83 mm[Hg] Location: LUE; Positi on: Sitting [facility] Height 2019-02-21 15:52:00 59 [in_us] [facility] Weight 2019-02-21 15:52:00 117.25 [lb_av] [facility] Body Mass Index Calculated 2019-02-21 15:52:00 23.68 kg/m2 [facility] Heart Rate 2019-02-21 15:52:00 83 /min Location: L Radial; Q uality: Normal [facility] Temperature 2019-02-21 15:52:00 98.3 [degF] Method: Oral [facility] BP Systolic 2019-01-25 09:19:00 131 mm[Hg] Location: RUE; Positi on: Sitting [facility] BP Diastolic 2019-01-25 09:19:00 88 mm[Hg] Location: RUE; Positi on: Sitting [facility] Height 2019-01-25 09:19:00 59 [in_us] [facility] Weight 2019-01-25 09:19:00 116 [lb_av] [facility] Body Mass Index Calculated 2019-01-25 09:19:00 23.43 kg/m2 [facility] Temperature 2019-01-25 09:19:00 98.7 [degF] Method: Oral [facility] Heart Rate 2019-01-25 09:19:00 82 /min [facility] BP Systolic 2018-12-25 18:39:00 121 mm[Hg] Location: LUE; Positi on: Sitting [facility] BP Diastolic 2018-12-25 18:39:00 78 mm[Hg] Location: LUE; Positi on: Sitting [facility] Height 2018-12-25 18:39:00 59 [in_us] Univers[facility] Weight 2018-12-25 18:39:00 116.125 [lb_av] [facility] Body Mass Index Calculated 2018-12-25 18:39:00 23.45 kg/m2 [facility] Temperature 2018-12-25 18:39:00 98.6 [degF] Method: Temporal [facility] Respiration Rate 2018-12-25 18:39:00 16 /min [facility] Heart Rate 2018-12-25 18:39:00 90 /min [facility] BP Systolic 2018-12-01 11:22:00 102 mm[Hg] Location: JERZYE; Positi on: Sitting [facility] BP Diastolic 2018-12-01 11:22:00 65 mm[Hg] Location: LUE; Positi on: Sitting [facility] Height 2018-12-01 11:22:00 59 [in_us] [facility] Weight 2018-12-01 11:22:00 116 [lb_av] [facility] Body Mass Index Calculated 2018-12-01 11:22:00 23.43 kg/m2 [facility] Temperature 2018-12-01 11:22:00 98.2 [degF] Method: Temporal [facility] Heart Rate 2018-12-01 11:22:00 72 /min Location: L Brachial Artery; [facility] Respiration Rate 2018-12-01 11:22:00 18 /min [facility] BP Systolic 2018-09-29 10:04:00 121 mm[Hg] Location: LUE; Positi on: Sitting [facility] BP Diastolic 2018-09-29 10:04:00 75 mm[Hg] Location: LUE; Positi on: Sitting [facility] Height 2018-09-29 10:04:00 59 [in_us] [facility] Weight 2018-09-29 10:04:00 117.6 [lb_av] [facility] Body Mass Index Calculated 2018-09-29 10:04:00 23.75 kg/m2 [facility] Temperature 2018-09-29 10:04:00 97.9 [degF] Method: Temporal [facility] Heart Rate 2018-09-29 10:04:00 72 /min Location: L Brachial Artery; [facility] Respiration Rate 2018-09-29 10:04:00 18 /min [facility] BP Systolic 2018-07-30 13:21:00 96 mm[Hg] Location: JERZYE; Positi on: Sitting [facility] BP Diastolic 2018-07-30 13:21:00 68 mm[Hg] Location: SANDRINE; Positi on: Sitting [facility] Height 2018-07-30 13:21:00 59 [in_us] [facility] Weight 2018-07-30 13:21:00 117.25 [lb_av] [facility] Body [facility] Index Calculated 2018-07-30 13:21:00 23.68 kg/m2 [facility] Temperature 2018-07-30 13:21:00 97.6 [degF] Method: Temporal [facility] Heart Rate 2018-07-30 13:21:00 70 /min [facility] Respiration Rate 2018-07-30 13:21:00 16 /min [facility] BP Systolic 2018-06-09 11:02:00 124 mm[Hg] Location: SANDRINE; Positi on: Sitting [facility] BP Diastolic 2018-06-09 11:02:00 79 mm[Hg] Location: SANDRINE; Positi on: Sitting [facility] Height 2018-06-09 11:02:00 59 [in_us] [facility] Weight 2018-06-09 11:02:00 116.1875 [lb_av] [facility] Body Mass Index Calculated 2018-06-09 11:02:00 23.47 kg/m2 [facility] Temperature 2018-06-09 11:02:00 98.2 [degF] Method: Temporal [facility] Heart Rate 2018-06-09 11:02:00 78 /min [facility] Respiration Rate 2018-06-09 11:02:00 16 /min [facility] BP Systolic 2018-03-06 11:19:00 111 mm[Hg] Location: LUE; Positi on: Sitting [facility] BP Diastolic 2018-03-06 11:19:00 76 mm[Hg] Location: LUE; Positi on: Sitting [facility] Height 2018-03-06 11:19:00 59 [in_us] [facility] Weight 2018-03-06 11:19:00 115.4375 [lb_av] [facility] Body Mass Index Calculated 2018-03-06 11:19:00 23.32 kg/m2 [facility] Temperature 2018-03-06 11:19:00 97.2 [degF] Method: Temporal [facility] Heart Rate 2018-03-06 11:19:00 74 /min [facility] Respiration Rate 2018-03-06 11:19:00 16 /min [facility] BP Systolic 2017-08-08 16:20:00 107 mm[Hg] Location: RUE; Positi on: Sitting [facility] BP Diastolic 2017-08-08 16:20:00 75 mm[Hg] Location: RUE; Positi on: Sitting [facility] Height 2017-08-08 16:20:00 59 [in_us] [facility] Weight 2017-08-08 16:20:00 120.3125 [lb_av] [facility] Body Mass Index Calculated 2017-08-08 16:20:00 24.3 kg/m2 [facility] Temperature 2017-08-08 16:20:00 98.3 [degF] Method: Temporal [facility] Heart Rate 2017-08-08 16:20:00 74 /min Location: L Brachial Artery; [facility] Respiration Rate 2017-08-08 16:20:00 16 /min Quality: Normal [facility] Procedures Procedure Date / Time Performed Performing Clinician Sourc e [QL] TSH, 3RD GENERATION W/REFLEX TO FT4 2020-03-27 00:00:00 [facility] [QL] CBC (INCLUDES DIFF/PLT) 2020-03-27 00:00:00 [facility] [QL] CMP W/EGFR 2020-03-27 00:00:00 [facility] [Q] LIPID PANEL WITH REFLEX TO DIRECT LDL 2020-03-27 00:00:00 [facility] [QL] VITAMIN D, 25-HYDROXY, LC/MS/MS 2020-03-27 00:00:00 [facility] [QL] URINALYSIS, COMPLETE 2020-03-27 00:00:00 [facility] [QL] CULTURE, URINE, ROUTINE 2020-03-27 00:00:00 [facility] Polysomnography with pH probe 2019-11-23 00:00:00 [facility] [QLH] URINALYSIS, COMPLETE W/REFLEX TO CULTURE 2019-11-23 00:00: 00 [facility] [O] Urine Dipstick (In Office) 2019-10-05 00:00:00 [facility] [QLH] URINALYSIS, COMPLETE W/REFLEX TO CULTURE 2019-10-05 00:00: 00 [facility] MA Digital Mammo DX Phan w shahbaz [id number] 2019-08-06 00:00:00 [facility] US Breast Bilat [id number] 2019-08-06 00:00:00 [facility] X-ray of chest, two views 2019-05-24 00:00:00 GENNY NICOLE [facility] Computed tomography of abdomen and pelvis with contrast 2018 00:00:00 SUNITA REYES [facility] [QL] TSH, 3RD GENERATION W/REFLEX TO FT4 2019-04-17 00:00:00 [facility] [QLH] CMP W/EGFR 2019-04-17 00:00:00 [facility] [QLH] CBC (INCLUDES DIFF/PLT) 2019-04-17 00:00:00 [facility] [QH] LIPID PANEL WITH REFLEX TO DIRECT LDL 2019-04-17 00:00:00 [facility] [QL] SED RATE BY MODIFIED JAIMEEREN 2019-04-17 00:00:00 [facility] [QLH] C-REACTIVE PROTEIN 2019-04-17 00:00:00 [facility] [QL] RHEUMATOID FACTOR 2019-04-17 00:00:00 [facility] [QL] VITAMIN D, 25-HYDROXY, LC/MS/MS 2019-04-17 00:00:00 [facility] [QL] HUNTER PANEL, COMPREHENSIVE 2019-04-17 00:00:00 [facility] [QH] CYCLIC CITRULLINATED PEPTIDE (CCP) AB (IGG) 2019-04-17 00:0 0:00 [facility] [Q] HIV-1/2 Antigen and Antibodies, Fourth Generation, with Reflexes 2019-04-17 00:00:00 [facility] MA Digital Mammo Screening Phan [id number] 2019-04-17 00:00:00 [facility] Colonoscopy 2019-02-26 00:00:00 [facility] US Pelvis with Pelvis Transvaginal [id number] 2019-02-21 00:00:00 [facility] Pelvis Transvag w Pelvis Doppler US 2019-02-21 00:00:00 [facility] [QL] URINALYSIS, COMPLETE 2019-01-25 00:00:00 U [facility] [QL] CULTURE, URINE, ROUTINE 2019-01-25 00:00:00 [facility] [H] Culture Ureaplasma/Mycoplasma hominis 2019-01-25 00:00:[address] [facility] CT Renal Stone [id number] 2018-12-25 00:00:00 [facility] [QL] CULTURE, URINE, ROUTINE 2018-12-25 00:00:00 [facility] [O] Urine Dipstick (In Office) 2018-12-01 00:00:00 [facility] [QL] CULTURE, URINE, ROUTINE 2018-12-01 00:00:00 [facility] [Q] CULTURE, THROAT 2018-09-29 00:00:00 [facility] [QL] URINALYSIS, COMPLETE 2018-06-09 00:00:00 U [facility] [[facility]] CULTURE, URINE, ROUTINE 2018-06-09 00:00:00 [facility] US Abdomen complete with Pelvis [id number] 2018-06-09 00:00:00 [facility] [QL] CMP W/EGFR 2018-03-06 00:00:00 [facility] [QL] TSH, 3RD GENERATION W/REFLEX TO FT4 2018-03-06 00:00:00 [facility] [QL] LIPID PANEL 2018-03-06 00:00:00 [facility] [[facility]] CBC (INCLUDES DIFF/PLT) 2018-03-06 00:00:00 [facility] MA Digital Mammo DX Phan [id number] 2018-03-06 00:00:00 [facility] US Breast Bilat [id number] 2018-03-06 [facility]:00[facility]00 [facility] [QL] CBC (INCLUDES DIFF/PLT) 2017-08-08 00:00:00 [facility] [[facility]] CMP W/EGFR 2017-08-08 00:00:00 [facility] [[facility]] LIPID PANEL 2017-08-08 00:00:00 [facility] [L] Vitamin D, 25-Hydroxy, Total - Esoterix 2017-08-08 00:00:00 [facility] [[facility]] TESTOSTERONE, TOTAL 2017-08-08 00:00:00 [facility]] TSH, 3RD GENERATION W/REFLEX TO FT4 2017-08-08 00:00:00 [facility] History of Hysterectomy [facility] History of section [facility] History of Abdominoplasty [facility] History of Breast [facility] History of Salpingo-oophorectomy [facility] Plan of Care Planned Activity Planned Date Details Comments Source Diagnostic Test Pending 2019-02-28 00:00:00 Colonoscopy [code = 737 14918] [facility] Diagnostic Test Pending 2019-02-28 00:00:00 Colonoscopy [code = 737 62096] [facility] Future Appointment 2020-05-28 15:00:00 Gamaliel LLAMAS, [facility] Future Appointment 2020-05-14 12:00:00 Gamaliel LLAMAS, [facility] Encounters Start Date/Time End Date/Time Encounter Type Admission Type Att[facility] Care Department Encounter ID Source 2020-04-30 12:30:00 2020-04-30 12:30:00 Appointment; MUIREL LAWS D.O. DOUGHER, ERIN, D.O. [facility] [id number] [facility] [place] [facility] 2020-04-02 10:00:00 2020-04-02 10:00:00 Appointment; MURIEL LAWS D.O. DOUGHER, ERIN, D.O. [facility] [place] [id number] [facility] [place] [facility] 2020-03-27 14:15:00 2020-03-27 14:15:00 Appointment; MIMI REYES AP RN TRAN, THUY, APRN [facility] [id number] [facility] 2019-12-18 10:24:00 2019-12-18 23:59:00 Outpatient Justyna Kellogg MHSE [facility] [id number] 2019-12-18 10:24:00 2019-12-18 10:24:00 Outpatient MHSE MHSE [id number] [facility] 2019-11-23 10:45:00 2019-11-23 10:45:00 Appointment; JUAN MANN M.D. BORTOLOTTI, JULIE, M.D. [facility] [id number] [facility] 2019-11-06 17:45:00 2019-11-06 17:45:00 Appointment; MIMI REYES AP RN TRAN, THUY, APRN [facility] [id number] [facility] 2019-10-05 10:45:00 2019-10-05 10:45:00 Appointment; MIMI REYES AP RN TRAN, THUY, APRN [facility] [id number] [facility] [place] [facility] 2019-07-18 15:45:00 2019-07-18 15:45:00 Appointment; MIMI REYES AP RN TRAN, THUY, APRN [facility] [id number] [facility] [place] [facility] 2019-06-13 15:00:00 2019-06-13 15:00:00 Appointment; MILDRED IRVING M.D. ELSHATANOUFY, SOLAFA, M.D. [facility] [id number] [facility] 2019-05-24 06:15:00 2019-05-24 09:30:00 Departed Emergency Room 1 SUNITA REYES [facility] [id number] [facility] 2019-05-17 15:00:00 2019-05-17 15:00:00 Appointment; MILDRED IRVING M.D. ELSHATANOUFY, SOLAFA, M.D. [facility] [id number] [facility] 2019-04-17 10:00:00 2019-04-17 10:00:00 Appointment; MIMI REYES AP RN TRAN, THUY, APRN [facility] [id number] [facility] 2019-02-28 08:15:00 2019-02-28 10:56:00 Outpatient Jeana Granda [facility] [id number] 2019-02-26 11:30:00 2019-02-26 11:30:00 Appointment; MILDRED IRVING M.D. ELSHATANOUFY, SOLAFA, M.D. [facility] [id number] [facility] 2019-02-25 14:00:00 2019-02-25 14:00:00 Appointment; MIQUEL GRANDA M.D. CATALANO, MARC, M.D. [facility] [address] [id number] [facility] 2019-02-21 15:30:00 2019-02-21 15:30:00 Appointment; MILDRED IRVING M.D. ELSHATANOUFY, SOLAFA, M.D. [facility] Urogynecology [facility] [id number] [facility] 2019-01-25 09:00:00 2019-01-25 09:00:00 Appointment; MILDRED IRVING M.D. ELSHATANOUFY, SOLAFA, M.D. [facility] UroGynecology [facility] [id number] [facility] 2018-12-25 18:45:00 2018-12-25 18:45:00 Appointment; MIMI REYES AP RN TRAN, THUY, APRN [facility] [id number] [facility] 2018-12-01 10:30:00 2018-12-01 10:30:00 Appointment; JUAN MANN M.D. BORTOLOTTI, JULIE, M.D. [facility] [address] [id number] [facility] 2018-09-29 10:00:00 2018-09-29 10:00:00 Appointment; MIMI REYES AP RN TRAN, THUY, APRN [facility] [id number] [facility] 2018-07-30 13:00:00 2018-07-30 13:00:00 Appointment; MIMI REYES AP RN TRAN, THUY, APRN [facility] [id number] [facility] 2018-06-23 07:30:00 2018-06-23 07:30:00 Outpatient Physici an, Non Associated MHSE MHSE [id number] 2018-06-09 10:45:00 2018-06-09 10:45:00 Appointment; SHAKEEL CALDWELL P.A. SPOONER, JOSEPH, P.A. [facility] [id number] [facility] 2018-06-07 11:35:00 2018-06-07 23:59:00 Outpatient Catalino Garcia MHHOIP MHHOIP [id number] 2018-05-02 16:15:00 2018-05-02 16:15:00 Appointment; MIMI REYES AP RN TRAN, THUY, APRN [facility] [id number] [facility] 2018-03-06 11:00:00 2018-03-06 11:00:00 Appointment; SHAKEEL CALDWELL P.A. SPOONER, JOSEPH, P.A. [facility] [id number] [facility] 2017-08-08 16:00:00 2017-08-08 16:00:00 Appointment; NICOLETTE PIERCE M.D. WILLISTON, HUBERT, M.D. [facility] [id number] [facility] 2017-08-08 14:00:00 2017-08-08 14:00:00 Appointment; SHAKEEL CALDWELL P.A. SPOONER, JOSEPH, P.A. [facility] UTP [id number] [facility] 2017-05-09 10:00:00 2017-05-09 10:00:00 Appointment; SUNG SALTER M.D. HAN, SHAOJIE, M.D. [facility] UTP [id number] [facility] 2017-04-12 11:00:00 2017-04-12 11:00:00 Appointment; SHAKEEL CALDWELL P.A. SPOONER, JOSEPH, P.A. UTP UTP [id number] [facility] 2017-03-24 16:00:00 2017-03-24 16:00:00 Appointment; SHAKEEL CALDWELL P.A. SPOONER, JOSEPH, P.A. UTP UTP [id number] [facility] 2017-03-09 16:00:00 2017-03-09 16:00:00 Appointment; NATHANAEL-Samm MCRAEKAVYA-MS, ECHO [facility] UTP [id number] [facility] 2017-03-09 10:00:00 2017-03-09 10:00:00 Appointment; SHAKEEL CALDWELL P.A. SPOONER, JOSEPH, P.A. UTP UTP [id number] [facility] 2017-02-15 09:27:00 2017-02-15 23:59:00 Outpatient Jamin Zepeda [facility] [id number] 2017-01-16 15:36:00 2017-01-16 23:59:00 Outpatient Jamin Zepeda [facility] [id number] Results Test Description Test Time Test Comments Results Result Comments Source [O] Urine Dipstick (In Office) 2020-03-27 00:00:00 Test Item Glucose (test code = Glucose) neg N LEUKOCYTES (test code = LEUKOCYTES) neg N NITRITE; Normal (test code = 22422-2) neg N UROBILINOGEN; Normal (test code = 47166-9) normal N PROTEIN; Abnormal (test code = 65306-1) trace A pH (test code = pH) 6 N URINE BLOOD; Abnormal (test code = 24967-2) trace A SPECIFIC GRAVITY; Normal (test code = 2965-2) 1.015 N KETONES; Normal (test code = 51721-2) neg N BILIRUBIN; Normal (test code = 02286-1) neg N COLOR URINE; Normal (test code = 5778-6) YELLOW N APPEARANCE; Normal (test code = 5767-9) CLEAR N [facility][QL] URINALYSIS, [id number] 00:00:00* Test Item Value Reference Range Interpretation Comments COLOR; Normal (test code = 5778-6) YELLOW YELLOW N APPEARANCE (test code = APPEARANCE) CLEAR CLEAR N SPECIFIC GRAVITY; Normal (test code = 2965-2) 1.022 1.001-1. 035 N PH; Normal (test code = 2756-5) 6.5 5.0-8.0 N GLUCOSE; Normal (test code = 1547-9) NEGATIVE NEGATIVE N BILIRUBIN; Normal (test code = 16227-1) NEGATIVE NEGATIVE N KETONES; Normal (test code = 40445-2) NEGATIVE NEGATIVE N OCCULT BLOOD; Normal (test code = 45338-4) NEGATIVE NEGATIVE N PROTEIN; Normal (test code = 23453-1) NEGATIVE NEGATIVE N NITRITE; Normal (test code = 33233-4) NEGATIVE NEGATIVE N LEUKOCYTE ESTERASE (test code = LEUKOCYTE ESTERASE) NEGATIVE NE GATIVE N WBC; Normal (test code = 6690-2) NONE SEEN < OR = 5 N RBC; Normal (test code = 789-8) NONE SEEN < OR = 2 N SQUAMOUS EPITHELIAL CELLS; Normal (test code = 62257-2) NONE SEEN < OR = 5 N BACTERIA; Normal (test code = 630-4) NONE SEEN NONE SEEN N HYALINE CAST; Normal (test code = 21543-4) NONE SEEN NONE SEEN N [facility][QL] CULTURE, URINE, [id number] 00:00:00* Test Item Value Reference Range Interpretation Comments CULTURE (test code = CULTURE) See Comment CULTURE, URINE, ROUTINE Micro Number: [id number] Test Status: Final Specimen Source: URINE Specimen Quality: Adequate Result: No Growth [facility][O] Urine Dipstick (In Office)2019-11-23 11:47:00 * Test Item Value Reference Range Interpretation Comments Glucose (test code = Glucose) NEGATIVE N LEUKOCYTES (test code = LEUKOCYTES) NEGATIVE N NITRITE; Normal (test code = 62111-8) NEGATIVE N UROBILINOGEN; Normal (test code = 77997-0) NEGATIVE N PROTEIN; Normal (test code = 93797-6) NEGATIVE N pH (test code = pH) 5 N URINE BLOOD; Normal (test code = 75850-8) NEGATIVE N SPECIFIC GRAVITY; Normal (test code = 2965-2) 1.010 N KETONES; Normal (test code = 56969-0) NEGATIVE N BILIRUBIN; Normal (test code = 66887-6) NEGATIVE N COLOR URINE; Normal (test code = 5778-6) YELLOW N APPEARANCE; Normal (test code = 5767-9) CLEAR N [facility]] URINALYSIS, COMPLETE W/REFLEX TO CULTURE 2019-11-23 00:00:00* Test Item Value Reference Range Interpretation Comments COLOR; Normal (test code = 5778-6) YELLOW YELLOW N APPEARANCE (test code = APPEARANCE) CLEAR CLEAR N SPECIFIC GRAVITY; Normal (test code = 2965-2) 1.027 1.001-1. 035 N PH; Normal (test code = 2756-5) 6.5 5.0-8.0 N GLUCOSE; Normal (test code = 1547-9) NEGATIVE NEGATIVE N BILIRUBIN; Normal (test code = 25525-8) NEGATIVE NEGATIVE N KETONES; Normal (test code = 59779-7) NEGATIVE NEGATIVE N OCCULT BLOOD; Normal (test code = 89988-1) NEGATIVE NEGATIVE N PROTEIN; Normal (test code = 88794-2) NEGATIVE NEGATIVE N NITRITE (test code = NITRITE) NEGATIVE NEGATIVE N LEUKOCYTE ESTERASE (test code = LEUKOCYTE ESTERASE) NEGATIVE NE GATIVE N WBC; Normal (test code = 6690-2) NONE SEEN < OR = 5 N RBC; Normal (test code = 789-8) NONE SEEN < OR = 2 N SQUAMOUS EPITHELIAL CELLS (test code = 33874-6) 0-5 < OR = 5 BACTERIA; Normal (test code = 630-4) NONE SEEN NONE SEEN N HYALINE CAST; Normal (test code = 40782-7) NONE SEEN NONE SEEN N [facility][Q] REFLEXIVE URINE [id number] 00:00:00* Test Item Value Reference Range Interpretation Comments REFLEXIVE URINE CULTURE (test code = REFLEXIVE URINE C ULTURE) NO CULTURE INDICATED [facility][O] Urine Dipstick (In Office)2019-10-05 11:02:00 * Test Item Value Reference Range Interpretation Comments Glucose (test code = Glucose) NEGATIVE N LEUKOCYTES (test code = LEUKOCYTES) NEGATIVE N NITRITE; Normal (test code = 24248-4) NEGATIVE N UROBILINOGEN; Normal (test code = 33583-2) NEGATIVE N PROTEIN; Normal (test code = 20066-2) NEGATIVE N pH (test code = pH) 5 N URINE BLOOD; Normal (test code = 08254-0) NEGATIVE N SPECIFIC GRAVITY; Normal (test code = 2965-2) 1.005 N KETONES; Normal (test code = 28441-7) NEGATIVE N BILIRUBIN; Normal (test code = 16280-7) NEGATIVE N COLOR URINE; Normal (test code = 5778-6) DARK YELLOW N APPEARANCE; Normal (test code = 5767-9) CLEAR N [facility][O] Streptococcus Test Rapid (In Office)2019-07-18 16:30:00* Test Item Value Reference Range Interpretation Comments Group A Strep Screen; Normal (test code = 55340-9) negative N [facility] A[facility]OM[facility]/PELVIS [id number] 09:34:00 [place] [address] Patient Name: REGAN LONDONO MR #: [id number] : 1975 Age/Sex: 43/F Req #: [id number] Adm Physician: Ordered by: SUNITA REYES DO Report #: [id number] Location: ER Room/Bed: Procedure: CT/CT ABDOMEN/PELVIS W Exam Date: 05/24/19 Exam Time: 091 5 REPORT STATUS: Signed EXAM: CT Abdomen and Pelvis WITH intravenous contrast INDICATION: Abdominal pain COMPARISON: None. TECHNIQUE: Abdomen and pelvis were scanned utilizing a multidetector helical scanner from the lung base to the pubic symphysis aft er administration of IV contrast. Coronal and sagittal reformations were obtai pankaj. Routine protocol was performed. Scan was performed during portal venous p hase. IV CONTRAST: 100mL of Isovue 370 ORAL CONTRAST: Water RAD IATION DOSE: Total DLP: (DLP x 0.015 x size factor) mGy*cm Dose modulati on, iterative reconstruction, and/or weight based adjustment of the mA/kV was utilized to reduce the radiation dose to as low as reasonably achievable. FINDINGS: LOWER THORAX: Partially visualized right breast implant. No lung c onsolidation. HEPATOBILIARY: Diffuse hepatic steatosis. 5 mm right hepatic hypodensity (series 2 image 19) is too small to characterize but likely repres ents a cyst. No other focal liver lesions. Normal gallbladder. SPLEEN: N o splenomegaly. PANCREAS: No focal masses or ductal dilatation. ADRENA LS: No adrenal nodules. KIDNEYS/URETERS: No hydronephrosis, stones, or solid m ass lesions. PELVIC ORGANS/BLADDER: 2.3 cm left adnexal cystic structure likel y represents a follicle. PERITONEUM / RETROPERITONEUM: No free air or flu id. LYMPH NODES: No lymphadenopathy. VESSELS: Unremarkable. GI TRACT: N o distention or wall thickening. BONES AND SOFT TISSUES: Unremarkable. IMPRESSION: No acute findings in the abdomen or pelvis. Hepatic steatos is. Signed by: Oliver Tovar MD on 05/24/2019 9:41 AM Dictated By: GIANNA TOVAR MD 0 Transcribed By: OPHELIA on 05/24/19940 COPY TO: SUNITA REYES DO CHEST 2 [id number] 08:55:00 [place] [address] Patient Name: REGAN LONDONO MR #: [id number] : 1975 Age/Sex: 43/F Req #: [id number] Adm Physician: Ordered by: GENNY NICOLE MD Report #: [id number] Location: ER Room/Bed: Procedure: [id number] DX /CHEST 2 VIEWS Exam Date: Exam Time: REPORT STATUS: Signed EXAMINATION: CHEST 2 V IEWS INDICATION: Fever COMPARISON: None FINDINGS: L RICO/TUBES:None LUNGS:The lungs are well-inflated. No focal consolidation o r pulmonary edema. PLEURA:No pleural effusion or pneumothorax. MEDIAST INUM:The cardiomediastinal silhouette appears normal in size and shape. BON ES/SOFT TISSUES:No acute osseous injury. ABDOMEN:No free air under the diap hragm. IMPRESSION: No focal pneumonia or pulmonary edema. Signed by: Oliver Tovar MD on 05/24/2019 8:56 AM Dictated By: OLIVER TOVAR MD Elect ronically Signed By: OLIVER TOVAR MD on 05/24/19855 Transcribed By: OPHELIA on 05/24/19855 COPY TO: GENNY NICOLE MD [id number] 08:28:00* Test Item Value Reference Range Interpretation Comments Lipase (test code = 3040-3) 19 8[facility]78 [facility] [id number] 08:18:00* Test Item Value Reference Range Interpretation Comments Urine Color (test code = 5778-6) YELLOW YELLOW [facility] [id number] 08:18:00* Test Item Value Reference Range Interpretation Comments Urine Clarity (test code = 46155-3) HAZY CLEAR [facility] [id number] 08:18:00 * Test Item Value Reference Range Interpretation Comments Urine Specific Tracy (test code = 5811-5) 1.020 1.010-1.02 5 [facility] [id number] 08:18:00* Test Item Value Reference Range Interpretation Comments Urine pH (test code = 18250-6) 6.5 5-7 [facility] [id number] 08:18:00* Test Item Value Reference Range Interpretation Comments Urine Leukocyte Esterase (test code = 5799-2) NEGATIVE NEGATIVE [facility] [id number] 08:18:00* Test Item Value Reference Range Interpretation Comments Urine Nitrite (test code = 15201-8) NEGATIVE NEGATIVE [facility] [id number] 08:18:00* Test Item Value Reference Range Interpretation Comments Urine Protein (test code = 5804-0) NEGATIVE NEGATIVE [facility] Glucose (UA)2019-05-24 08:18:00* Test Item Value Reference Range Interpretation Comments Urine Glucose (UA) (test code = 2349-9) NEGATIVE NEGATIVE [facility] [id number] 08:18:00* Test Item Value Reference Range Interpretation Comments Urine Ketones (test code = 38620-1) NEGATIVE NEGATIVE [facility] [id number] 08:18:00* Test Item Value Reference Range Interpretation Comments Urine Urobilinogen (test code = 83774-3) 0.2 0.2-1 [facility] Seguaoyit8746-86-01 08:18:00* Test Item Value Reference Range Interpretation Comments Urine Bilirubin (test code = 1978-6) NEGATIVE NEGATIVE [facility] Rnycy6333-25-69 08:18:00* Test Item Value Reference Range Interpretation Comments Urine Blood (test code = 23786-0) NEGATIVE NEGATIVE [facility] [id number] 08:18:00* Test Item Value Reference Range Interpretation Comments Urine WBC (test code = 5821-4) 6-10 0-5 H [facility] [id number] 08:18:00* Test Item Value Reference Range Interpretation Comments Urine RBC (test code = 16047-9) 0-5 0-5 [facility] Wlggnpuu5191-44-89 08:18:00* Test Item Value Reference Range Interpretation Comments Urine Bacteria (test code = 43567-8) MANY NONE H [facility] Center[facility] Epithelial Qgfvc0897-17-60 08:18:00 * Test Item Value Reference Range Interpretation Comments Urine Epithelial Cells (test code = 38364-2) MODERATE NONE [facility] Aybil9653-09-29 08:14:00* Test Item Value Reference Range Interpretation Comments Sodium Level (test code = 2951-2) 135 136-145 L [facility]Potassium Frnof6662-53-57 08:14:00* Test Item Value Reference Range Interpretation Comments Potassium Level (test code = 2823-3) 3.6 3.5-5.1 [facility] CenterChloride Jxbbr9201-66-81 08:14:00* Test Item Value Reference Range Interpretation Comments Chloride Level (test code = 2075-0) 102 98-107 [facility] CenterCarbon Dioxide Vjrww2771-30-60 08:14:00* Test Item Value Reference Range Interpretation Comments Carbon Dioxide Level (test code = 2028-9) 23 22-29 [facility] CenterAnion Lml9855-00-25 08:14:00* Test Item Value Reference Range Interpretation Comments Anion Gap (test code = 83859-4) 13.6 8-16 [facility] CenterBlood Urea Oonmlxfo6324-12-93 08:14:00* Test Item Value Reference Range Interpretation Comments Blood Urea Nitrogen (test code = 3094-0) 15 7-26 [facility] CenterCreatinine2019-09-06 08:14:00* Test Item Value Reference Range Interpretation Comments Creatinine (test code = 2160-0) 0.76 0.57-1.11 [facility] CenterBUN/Creatinine Xrqel0552-44-91 08:14:00* Test Item Value Reference Range Interpretation Comments BUN/Creatinine Ratio (test code = 3097-3) 20 6-25 [facility] CenterEstimat Glomerular Filtration Rate 2019-05-24 08:14:00* Test Item Value Reference Range Interpretation Comments Estimat Glomerular Filtration Rate (test code = 743023193) > 60 >60 Ranges were taken from the National Kidney Disease Education Program and the [facility] literature.Reference ranges:60 or greater: Nphvis06-70 ( for 3 consecutive months): Chronic kidney disease 15 or less: Kidney failureGrace Medical CenterGlucose Lbuno5465-45-01 08:14:00* Test Item Value Reference Range Interpretation Comments Glucose Level (test code = GOD2060) 112 74-118 [facility] CenterCalcium Afatb7366-16-79 08:14:00* Test Item Value Reference Range Interpretation Comments Calcium Level (test code = 06638-2) 9.3 8.4-10.2 [facility] CenterTotal Ybzgibnuc0315-29-83 08:14:00* Test Item Value Reference Range Interpretation Comments Total Bilirubin (test code = 1975-2) 0.5 0.2-1.2 [facility] CenterAspartate Amino Transf (AST/SGOT) 2019-05-24 08:14:00* Test Item Value Reference Range Interpretation Comments Aspartate Amino Transf (AST/SGOT) (test code = Aspartate Amino Transf (AST/SGOT)) 15 5-34 [facility] CenterAlanine Aminotransferase (ALT/SGPT) 2019-05-24 08:14:00* Test Item Value Reference Range Interpretation Comments Alanine Aminotransferase (ALT/SGPT) (test code = 1742-6) 14 0-55 [facility] Mcrkcil2852-01-67 08:14:00* Test Item Value Reference Range Interpretation Comments Total Protein (test code = 2885-2) 7.2 6.5-8.1 [facility] CenterAlbumin2019-09-06 08:14:00* Test Item Value Reference Range Interpretation Comments Albumin (test code = 1751-7) 3.9 3.5-5.0 [facility] CenterGlobulin2019-09-06 08:14:00* Test Item Value Reference Range Interpretation Comments Globulin (test code = 50967-2) 3.3 2.3-3.5 [facility] CenterAlbumin/Globulin Wklzm4846-19-93 08:14:00 * Test Item Value Reference Range Interpretation Comments Albumin/Globulin Ratio (test code = 1759-0) 1.2 0.8-2.0 [facility] CenterAlkaline Mneysjteobt0985-05-18 08:14:00* Test Item Value Reference Range Interpretation Comments Alkaline Phosphatase (test code = 6768-6) 79 40-150 [facility] CenterUrine Kbjq3605-61-53 08:09:00* Test Item Value Reference Range Interpretation Comments Urine Test (test code = 2106-3) NEGATIVE NEGATIVE [facility] CenterWhite Blood Rjyws8260-83-11 07:57:00* Test Item Value Reference Range Interpretation Comments White Blood Count (test code = 6690-2) 6.01 4.8-10.8 [facility] CenterRed Blood Zjxmy5471-34-79 07:57:00* Test Item Value Reference Range Interpretation Comments Red Blood Count (test code = 789-8) 4.34 3.6-5.1 [facility] CenterHemoglobin2019-09-06 07:57:00* Test Item Value Reference Range Interpretation Comments Hemoglobin (test code = 59663-8) 12.8 12.0-16.0 [facility] CenterHematocrit2019-09-06 07:57:00* Test Item Value Reference Range Interpretation Comments Hematocrit (test code = 4544-3) 37.8 34.2-44.1 [facility] CenterMean Corpuscular Rrdeog5497-12-84 07:57:00* Test Item Value Reference Range Interpretation Comments Mean Corpuscular Volume (test code = 787-2) 87.1 81-99 [facility] CenterMean Corpuscular Paexxrejyy1397-10-95 07:57:00* Test Item Value Reference Range Interpretation Comments Mean Corpuscular Hemoglobin (test code = 785-6) 29.5 28-32 [facility] CenterMe Corpuscular Hemoglobin Concent 2019-05-24 07:57:00* Test Item Value Reference Range Interpretation Comments Mean Corpuscular Hemoglobin Concent (test code = 786-4) 33.9 31-35 [facility] CenterRed Cell Distribution Pcdfg5286-51-52 07:57:00* Test Item Value Reference Range Interpretation Comments Red Cell Distribution Width (test code = 41317-6) 13.3 11.7 -14.4 [facility] CenterPlatelet Hnysm7813-36-91 07:57:00* Test Item Value Reference Range Interpretation Comments Platelet Count (test code = 777-3) 291 140-360 [facility] CenterNeutrophils (%) (Auto)2019-05-24 07:57:00 * Test Item Value Reference Range Interpretation Comments Neutrophils (%) (Auto) (test code = 85012-0) 67.8 38.7-80.0 [facility] CenterLymphocytes (%) (Auto)2019-05-24 07:57:00 * Test Item Value Reference Range Interpretation Comments Lymphocytes (%) (Auto) (test code = 736-9) 23.1 18.0-39.1 [facility] CenterMonocytes (%) (Auto)2019-05-24 07:57:00* Test Item Value Reference Range Interpretation Comments Monocytes (%) (Auto) (test code = 5905-5) 5.2 4.4-11.3 [facility] CenterEosinophils (%) (Auto)2019-05-24 07:57:00 * Test Item Value Reference Range Interpretation Comments Eosinophils (%) (Auto) (test code = 713-8) 2.7 0.0-6.0 [facility] CenterBasophils (%) (Auto)2019-05-24 07:57:00* Test Item Value Reference Range Interpretation Comments Basophils (%) (Auto) (test code = 706-2) 0.7 0.0-1.0 [facility] CenterIM GRANULOCYTES %2019-05-24 07:57:00* Test Item Value Reference Range Interpretation Comments IM GRANULOCYTES % (test code = IM GRANULOCYTES %) 0.5 0.0- 1.0 [facility] CenterNeutrophils # (Auto)2019-05-24 07:57:00* Test Item Value Reference Range Interpretation Comments Neutrophils # (Auto) (test code = 751-8) 4.1 2.1-6.9 [facility] CenterLymphocytes # (Auto)2019-05-24 07:57:00* Test Item Value Reference Range Interpretation Comments Lymphocytes # (Auto) (test code = 22697-7) 1.4 1.0-3.2 [facility] CenterMonocytes # (Auto)2019-05-24 07:57:00* Test Item Value Reference Range Interpretation Comments Monocytes # (Auto) (test code = 742-7) 0.3 0.2-0.8 [facility] CenterEosinophils # (Auto)2019-05-24 07:57:00* Test Item Value Reference Range Interpretation Comments Eosinophils # (Auto) (test code = 711-2) 0.2 0.0-0.4 [facility] CenterBasophils # (Auto)2019-05-24 07:57:00* Test Item Value Reference Range Interpretation Comments Basophils # (Auto) (test code = 704-7) 0.0 0.0-0.1 [facility] CenterAbsolute Immature Granulocyte (auto 2019-05-24 07:57:00* Test Item Value Reference Range Interpretation Comments Absolute Immature Granulocyte (auto (jerry t code = Absolute Immature Granulocyte (auto) 0.03 0-0.1 [facility][O] Urine Dipstick (In Office)2019-05-17 15:50:00* Test Item Value Reference Range Interpretation Comments Glucose (test code = Glucose) Negative N LEUKOCYTES (test code = LEUKOCYTES) Negative N NITRITE; Normal (test code = 90821-9) Negative N PROTEIN; Normal (test code = 22173-9) Negative N URINE BLOOD; Abnormal (test code = 89793-5) Trace-Intact A KETONES; Abnormal (test code = 18816-7) Trace A [facility][Q] HIV-1/2 Antigen and Antibodies, Fourth Generation, with Apsywzzy9708-41-41 11:05:00* Test Item Value Reference Range Interpretation Comments HIV AG/AB, 4TH GEN; Normal (test code = 78999-5) NON-REACTIVE NON-R EACTIVE N HIV-1 antigen and HIV-1/HIV-2 antibodies were notdetected. There is no laboratory evidence of HIVinfection. PLEASE NOTE: This information has been disclosed toyou from records whose confidentiality may beprotected by state law. If your state requires suchprotection, then the state law prohibits you frommaking any further disclosure of the informationwithout the specific written consent of the personto whom it pertains, or as otherwise permitted by law.A general authorization for the release of medical orother information is NOT sufficient for this purpose. For additional information please refer t ohttp://education.Rippld/faq/DSG817(This link is being provided for informational/educational purposes only.) The performance of this assay has not been clinicallyvalidated in patients less than 2 years old. [facility][] LIPID PANEL WITH REFLEX TO DIRECT LDL 2019-04-17 11:05:00* Test Item Value Reference Range Interpretation Comments CHOLESTEROL, TOTAL; Above High Threshold (test code = 2093-3) 236 m g/dl <200 HDL CHOLESTEROL; Below Low Threshold (test code = 2085-9) 49 mg/dl >50 TRIGLYCERIDES; Above High Threshold (test code = 2571-8) 220 mg/dl <150 If a non-fasting specimen was collected, considerrepeat triglyceride testing on a fasting specimenif clinically indicated. Pemberton et al. J. of Clin. Lipidol. 2015;9:129-169. LDL-CHOLESTEROL; Above High Threshold (test code = 06787-8) 150 {MG/DL GAYLE} Reference range: <100 Desirable range <1 00 mg/dL for primary prevention; <70 mg/dL for patients with CHD or diabetic patients with > or = 2 CHD risk factors. LDL-C is now calculated using the Jadiel-Josie calculation, which is a validated novel method providing better accuracy than the Friedewald equation in the estimation of LDL-C. Jadiel MENDOZA et al. MASON. 2013;310(19): 8281-7052 (http ://education.StartupBlink.Beepi/faq/CWQ739) CHOL/HDLC RATIO (test code = CHOL/HDLC RATIO) 4.8 {CALC} <5.0 N NON HDL CHOLESTEROL (test code = NON HDL CHOLESTEROL) 187 {MG/DL C AL} <130 For patients with diabetes plus 1 major ASCVD risk factor, treating to a non-HDL-C goal of <100 mg/dL (LDL-C of <70 mg/dL) is considered a therapeutic option. [facility]] HUNTER PANEL, [id number] 11:05:00 * Test Item Value Reference Range Interpretation Comments HUNTER SCREEN, IFA (test code = HUNTER SCREEN, IFA) NEGATIVE NEGATIVE N HUNTER IFA is a first line screen for detecting thepresence of up to approximately 150 autoantibodies invarious autoimmune diseases. A negative HUNTER IFA resultsuggests HUNTER-associated autoimmune diseases are notpresent at this time. Visit Physician FAQs for interpretation of allantibodies in the [place], prevalence, and associationwith diseases at http://education.MarkTend/faq/YDY922 DNA (DS) ANTIBODY (test code = DNA (DS) ANTIBODY) <1 N IU/mL Interpretation < or = 4 Negative 5-9 Indeterminate > or = 10 Positive SCL-70 ANTIBODY (test code = SCL-70 ANTIBODY) <1.0 NEG <1.0 NEG N SM ANTIBODY (test code = SM ANTIBODY) <1.0 NEG <1.0 NEG N SM/DIRECTOR OF EMERGENCY NURSING ANTIBODY (test code = SM/DIRECTOR OF EMERGENCY NURSING ANTIBODY) <1.0 NEG <1.0 NEG N SJOGRENS ANTIBODY (SS-A) (test code = SJOGRENS ANTIBODY (SS- A)) <1.0 NEG <1.0 NEG N SJOGRENS ANTIBODY (SS-B) (test code = SJOGRENS ANTIBODY (SS- B)) <1.0 NEG <1.0 NEG N [facility]] CMP W/[id number] 11:05:00* Test Item Value Reference Range Interpretation Comments GLUCOSE; Normal (test code = 1547-9) 85 mg/dl 65-99 N Fasting reference interval UREA NITROGEN (BUN) (test code = UREA NITROGEN (BUN)) 15 mg/dl 7-25 N CREATININE (test code = CREATININE) 0.67 mg/dl 0.50-1.10 N eGFR NON- (test code = eGFR NON-ESCOBAR N LUXEMBOURGER) 108 {ML/MIN/1.7} > OR = 60 N eGFR (test code = eGFR ) 12 6 {ML/MIN/1.7} > OR = 60 N BUN/CREATININE RATIO (test code = BUN/CREATININE RATIO) NOT APPLICA BLE 6-22 SODIUM (test code = SODIUM) 138 mmol/L 135-146 N POTASSIUM (test code = POTASSIUM) 4.1 mmol/L 3.5-5.3 N CHLORIDE (test code = CHLORIDE) 105 mmol/L 98-110 N CARBON DIOXIDE (test code = CARBON DIOXIDE) 25 mmol/L 20-32 N CALCIUM (test code = CALCIUM) 9.4 mg/dl 8.6-10.2 N PROTEIN, TOTAL (test code = PROTEIN, TOTAL) 7.1 g/dl 6.1-8.1 N ALBUMIN (test code = ALBUMIN) 4.2 g/dl 3.6-5.1 N GLOBULIN (test code = GLOBULIN) 2.9 {G/DL CALC} 1.9-3.7 N ALBUMIN/GLOBULIN RATIO (test code = ALBUMIN/GLOBULIN RATIO) 1.4 {CALC} 1.0-2.5 N BILIRUBIN, TOTAL; Normal (test code = 91470-0) 0.4 mg/dl 0.2-1.2 N ALKALINE PHSPHATASE (test code = ALKALINE PHSPHATASE) 79 u/l 33-115 N AST; Normal (test code = 1916-6) 16 u/l 10-30 N ALT; Normal (test code = 1742-6) 18 u/l 6-29 N [facility]] SED RATE BY MODIFIED [id number] 11:05:00* Test Item Value Reference Range Interpretation Comments SED RATE BY MODIFIED WESTERGREN (test code = SED RATE BY MODIFIED WESTERGREN) 25 mm/h < OR = 20 [facility]] CBC (INCLUDES DIFF/PLT)2019-04-17 11:05:00* Test Item Value Reference Range Interpretation Comments WHITE BLOOD CELL COUNT (test code = WHITE BLOOD CELL COUNT) 5.7 {Thousand/u} 3.8-10.8 N RED BLOOD CELL COUNT (test code = RED BLOOD CELL COUNT) 4.31 {Million/uL} 3.80-5.10 N HEMAGLOBIN; Normal (test code = 99796-9) 12.8 g/dl 11.7-15.5 N HEMATOCRIT; Normal (test code = 4544-3) 37.5 % 35.0-45.0 N MCV; Normal (test code = 787-2) 87.0 fL 80.0-100.0 N MCHC; Normal (test code = 95934-2) 34.1 g/dl 32.0-36.0 N RDW; Normal (test code = 788-0) 13.6 % 11.0-15.0 N PLATELET COUNT; Normal (test code = 777-3) 303 {Thousand/u} 140-400 N MPV; Normal (test code = 44021-4) 11.3 fL 7.5-12.5 N ABSOLUTE NEUTROPHILS (test code = ABSOLUTE NEUTROPHILS) 3186 {cells/uL} 9840-9646 N ABSOLUTE LYMPHOCYTES (test code = ABSOLUTE LYMPHOCYTES) 2126 {cells/uL} 850-3900 N ABSOLUTE MONOCYTES (test code = ABSOLUTE MONOCYTES) 291 {cells/uL} 200-950 N ABSOLUTE EOSINOPHILS (test code = ABSOLUTE EOSINOPHILS) 68 {cells/u L} 15-500 N ABSOLUTE BASOPHILS (test code = ABSOLUTE BASOPHILS) 29 {cells/uL} 0 -200 N NEUTROPHILS (test code = NEUTROPHILS) 55.9 % N LYMPHOCYTES (test code = LYMPHOCYTES) 37.3 % N MONOCYTES; Normal (test code = 53110-6) 5.1 % N EOSINOPHILS; Normal (test code = 81074-6) 1.2 % N BASOPHILS; Normal (test code = 86386-2) 0.5 % N [facility][] CYCLIC CITRULLINATED PEPTIDE (CCP) AB (IGG) 2019-04-17 11:05:00* Test Item Value Reference Range Interpretation Comments CYCLIC CITRULLINATED PEPTIDE (CCP) AB (I GG) (test code = CYCLIC CITRULLINATED PEPTIDE (CCP) AB (IGG)) <16 N Referenc e RangeNegative: <20Weak Positive: 20-39Moderate Positive: 40-59Strong Positive: >59 [facility]] RHEUMATOID [id number] 11:05:00* Test Item Value Reference Range Interpretation Comments RHEUMATOID FACTOR (test code = RHEUMATOID FACTOR) <14 <14 N [facility]] C-REACTIVE [id number] 11:05:00* Test Item Value Reference Range Interpretation Comments C-REACTIVE PROTEIN (test code = C-REACTIVE PROTEIN) 3.8 mg/L <8 .0 N [facility]] TSH, 3RD GENERATION W/REFLEX TO FT4 2019-04-17 11:05:00* Test Item Value Reference Range Interpretation Comments TSH, 3RD GENERATION W/REFLEX TO FT4 (jerry t code = TSH, 3RD GENERATION W/REFLEX TO FT4) 1.33 {MIU/L} N Reference Range > or = 20 Years 0.40-4.50 Ranges First trimester 0.26-2.66 Second trimester 0.55-2.73 Third trimester 0.43-2.91 [facility]] VITAMIN D, 25-HYDROXY, LC/MS/[id number] 11:05:00* Test Item Value Reference Range Interpretation Comments VITAMIN D,25-OH,TOTAL,IA (test code = VITAMIN D,25-OH,TOTAL,IA) 18 ng/ml 30-100 Vitamin D Status 25-OH Vitamin D : Deficiency: <20 ng/mLInsufficiency: 20 - 29 ng/mLOptimal: > or = 30 ng/mL For 25-OH Vitamin D testing on patients on D2-supplementation and patients for whom quantitation of D2 and D3 fractions is required, the QuestAssureD(TM)25-OH VIT D, (D2,D3), LC/MS/MS is recommended: order code 94463 (patients >2yrs). For more information on this test, go to:http://education.Archive.Beepi/faq/TVK734(This link is being provided for informational/educational purposes only.) [facility]] SED RATE BY MODIFIED [id number] 15:06:01* Test Item Value Reference Range Interpretation Comments Sedimentation Rate (test code = 38628-7) 15 {mm/hr} 0-20 [facility]] [id number] 15:06:01* Test Item Value Reference Range Interpretation Comments Lipase Level (test code = 3040-3) 127 u/l 73-393 [facility]] HEPATIC FUNCTION [id number] 15:06:01* Test Item Value Reference Range Interpretation Comments Total Protein (test code = 2885-2) 7.1 g/dl 6.4-8.4 Albumin Lvl (test code = 1751-7) 3.7 g/dl 3.5-5.0 Bili Total (test code = 1974-2) 0.2 mg/dl 0.2-1.3 Bilirubin Direct (test code = 1967-7) <0.1 0.0-0.3 Bilirubin Indirect (test code = 1970-) Unable to Calculate 0.0-1.0 Alk Phos (test code = 1783-0) 103 u/l 39-136 AST (test code = 42769-0) 16 u/l 0-37 ALT (test code = 1743-4) 24 u/l 0-65 Globulin (test code = 58254-1) 3.4 g/dl 2.7-4.2 A/G Ratio (test code = 1759-0) 1.1 0.7-1.6 [facility][O] Urine Dipstick (In Office)2019-02-21 15:54:00 * Test Item Value Reference Range Interpretation Comments LEUKOCYTES (test code = LEUKOCYTES) NEGATIVE N NITRITE; Normal (test code = 83414-3) NEGATIVE N UROBILINOGEN; Normal (test code = 75344-8) 0.2 N PROTEIN; Normal (test code = 87113-0) NEGATIVE N pH (test code = pH) 7.0 N URINE BLOOD; Abnormal (test code = 77761-8) TRACE-INTACT A SPECIFIC GRAVITY; Normal (test code = 2965-2) 1.025 N KETONES; Normal (test code = 11203-1) NEGATIVES N BILIRUBIN; Normal (test code = 11031-4) NEGATIVE N [facility][O] Urine Dipstick (In Office)2019-01-25 09:31:00 * Test Item Value Reference Range Interpretation Comments Glucose (test code = Glucose) Negative N LEUKOCYTES (test code = LEUKOCYTES) Negative N NITRITE; Normal (test code = 42014-6) Negative N PROTEIN; Normal (test code = 90879-6) Negative N URINE BLOOD; Normal (test code = 02596-4) Negative N KETONES; Normal (test code = 46933-4) Negative N [facility]] URINALYSIS, [id number] 00:00:01* Test Item Value Reference Range Interpretation Comments UA Turbidity; Abnormal (test code = 60691-4) Marked Clear A UA Spec Grav (test code = 5810-7) 1.015 <=1.030 UA pH (test code = 5803-2) 5.0 5.0-8.0 UA Protein (test code = 60842-3) Negative Negative UA Glucose (test code = 19786-2) Negative Negative UA Ketones (test code = 35135-4) Negative Negative UA Bili (test code = 5770-3) Negative Negative UA Blood (test code = 5794-3) Negative Negative UA Nitrite (test code = 5802-4) Negative Negative UA Leuk Est (test code = 5799-2) Negative Negative UA RBC (test code = 06356-8) <1 0-2 UA WBC (test code = 49016-3) <1 0-5 UA Bacteria (test code = 95061-1) Occasional None Seen UA Mucus (test code = 8247-9) Few None Seen UA Sq Epi (test code = 88532-7) None Seen Urine Uric Acid Crystal (test code = 26513-2) Occasional None See n UA Color (test code = 5778-6) Ltyellow UROBILINOGEN (test code = 70228-2) <=1.0 0.1-1.0 [facility][H] CULTURE, URINE, [id number] 00:00:01* Test Item Value Reference Range Interpretation Comments FINAL REPORT (test code = FINAL REPORT) No Growth [facility][H] Culture Ureaplasma/Mycoplasma hominis 2019-01-25 00:00:01* Test Item Value Reference Range Interpretation Comments Ureaplasma urealyticum (test code = Ureaplasma urealyticum) Negativ e Mycoplasma hominis (test code = Mycoplasma hominis) Negative Performed At: [facility] [id number] Chong MD Ph:[phone] [facility][O] Urine Dipstick (In Office)2018-12-25 18:46:00 * Test Item Value Reference Range Interpretation Comments Glucose (test code = Glucose) normal N LEUKOCYTES (test code = LEUKOCYTES) neg N NITRITE; Normal (test code = 87712-2) neg N UROBILINOGEN; Normal (test code = 63833-3) neg N PROTEIN (test code = 20164-6) trace pH (test code = pH) 5 URINE BLOOD (test code = 22968-4) trace SPECIFIC GRAVITY (test code = 2965-2) 1.020 KETONES; Normal (test code = 96260-1) neg N BILIRUBIN; Normal (test code = 68092-7) neg N COLOR URINE; Normal (test code = 5778-6) yellow N APPEARANCE; Normal (test code = 5767-9) clear N [facility]] CULTURE, URINE, [id number] 00:00:00* Test Item Value Reference Range Interpretation Comments CULTURE (test code = CULTURE) See Comment CULTURE, URINE, ROUTINE MICRO NUMBER: [id number] TEST STATUS: FINAL SPECIMEN SOURCE: NOT GIVEN SPECIMEN QUALITY: ADEQUATE RESULT: Single organism less than 10,000 CFU/mL isolated. These organisms, commonly found on external and internal genitalia, are considered colonizers. No further testing performed. [facility][O] Urine Dipstick (In Office)2018-12-01 11:32:00 * Test Item Value Reference Range Interpretation Comments Glucose (test code = Glucose) Normal N LEUKOCYTES (test code = LEUKOCYTES) Negative N NITRITE; Normal (test code = 74577-8) Negative N UROBILINOGEN; Normal (test code = 56456-8) Normal N PROTEIN; Abnormal (test code = 18050-0) Trace A pH (test code = pH) 5 N URINE BLOOD; Abnormal (test code = 39456-8) Trace A SPECIFIC GRAVITY; Normal (test code = 2965-2) 1.025 N KETONES; Normal (test code = 67989-4) Normal N BILIRUBIN; Normal (test code = 28632-2) Negative N COLOR URINE; Normal (test code = 5778-6) Yellow N APPEARANCE; Normal (test code = 5767-9) Clear N [facility]] CULTURE, URINE, [id number] 00:00:00* Test Item Value Reference Range Interpretation Comments CULTURE (test code = CULTURE) See Comment CULTURE, URINE, ROUTINE MICRO NUMBER: [id number] TEST STATUS: FINAL SPECIMEN SOURCE: URINE SPECIMEN QUALITY: ADEQUATE RESULT: No Growth [facility][] CULTURE, [id number] 10:00:00* Test Item Value Reference Range Interpretation Comments CULTURE (test code = CULTURE) See Comment CULTURE, THROAT MICRO NUMBER: [id number] TEST STATUS: FINAL SPECIMEN SOURCE: NOT GIVEN SPECIMEN QUALITY: ADEQUATE RESULT: No oropharyngeal pathogens recovered.NO COLLECTION DATE RECEIVED. WE HAVE USEDTHE DATE THE SPECIMEN WAS RECEIVED BY [facility] THE COLLECTION DATE. IF THISIS INCORRECT, PLEASE CONTACT CLIENT SERVICES.PHONE NUMBER: [phone] [facility][O] Streptococcus Test Rapid (In Office)2018-09-29 10:41:00* Test Item Value Reference Range Interpretation Comments Group A Strep Screen; Normal (test code = 31748-3) Negative N [facility][O] Urine Dipstick (In Office)2018-06-09 11:07:00 * Test Item Value Reference Range Interpretation Comments Glucose (test code = Glucose) normal N LEUKOCYTES (test code = LEUKOCYTES) neg N NITRITE; Normal (test code = 78474-5) neg N UROBILINOGEN; Normal (test code = 47091-8) neg N PROTEIN (test code = 07161-5) trace pH (test code = pH) 5 URINE BLOOD; Normal (test code = 31581-4) neg N SPECIFIC GRAVITY (test code = 2965-2) 1.020 KETONES; Normal (test code = 62984-7) neg N BILIRUBIN; Normal (test code = 89070-0) neg N COLOR URINE; Normal (test code = 5778-6) yellow N APPEARANCE; Normal (test code = 5767-9) clear N [facility] PhysiciansTobacco Use [id number] 10:45:00* Test Item Value Reference Range Interpretation Comments Completed (test code = Completed) DONE [facility]] CULTURE, URINE, [id number] 00:00:00* Test Item Value Reference Range Interpretation Comments CULTURE (test code = CULTURE) See Comment CULTURE, URINE, ROUTINE MICRO NUMBER: [id number] TEST STATUS: FINAL SPECIMEN SOURCE: URINE SPECIMEN QUALITY: ADEQUATE COMMENT: Additional organism(s) less than 10,000 CFU/mL isolated. These organisms, commonly found on external and internal genitalia, are considered colonizers. No further testing performed. [facility]] URINALYSIS, [id number] 00:00:00* Test Item Value Reference Range Interpretation Comments COLOR; Normal (test code = 5778-6) YELLOW YELLOW N APPEARANCE (test code = APPEARANCE) CLEAR CLEAR N SPECIFIC GRAVITY; Normal (test code = 2965-2) 1.025 1.001-1. 035 N PH; Normal (test code = 2756-5) < OR = 5.0 5.0-8.0 N GLUCOSE; Normal (test code = 1547-9) NEGATIVE NEGATIVE N BILIRUBIN; Normal (test code = 48103-5) NEGATIVE NEGATIVE N KETONES; Normal (test code = 33343-4) NEGATIVE NEGATIVE N OCCULT BLOOD; Normal (test code = 95263-8) NEGATIVE NEGATIVE N PROTEIN; Normal (test code = 15625-0) NEGATIVE NEGATIVE N NITRITE; Normal (test code = 07453-0) NEGATIVE NEGATIVE N LEUKOCYTE ESTERASE (test code = LEUKOCYTE ESTERASE) NEGATIVE NE GATIVE N WBC; Normal (test code = 6690-2) NONE SEEN < OR = 5 N RBC; Normal (test code = 789-8) NONE SEEN < OR = 2 N SQUAMOUS EPITHELIAL CELLS (test code = 14705-9) 0-5 < OR = 5 BACTERIA; Normal (test code = 630-4) NONE SEEN NONE SEEN N HYALINE CAST; Normal (test code = 15406-0) NONE SEEN NONE SEEN N [facility]iciansBreast Complete Phan [id number] 13:09:00COMPLETE ULTRASOUND OF BOTH BREASTS AND AXILLA: 06/07/2018CLINICAL: /N64.4 Mastodynia. COMPARISON:Comparison is made to exam dated: 06/07/2018 mammogram - Rey Fink. TECHNIQUE: Color flow and real-time ultrasound of both breas ts four quadrants,retroareolar, and axilla regions were performed on the areas o f interest. FINDINGS:No abnormalities were seen sonographically in either breast or either axilla. An island of dense tissue is seen in the area of mammographic asymmetry in theupper outer right breast. No sonographic correlate is identifie d for thepatient's breast pain. IMPRESSION: BENIGNRECOMMENDATION:Clinical manage ment of the patient's pain is recommended. There is no sonographic evidence of m alignancy. A 1 year screening mammogram is recommended.(06/08/2019) This exam wasinterpreted at [id number] for DIEGO Fink, SL 15. Professional services are pro vided by the [facility] GonzalezDivision of Diagnostic Imaging.Ash [place] cm/daisy:06/07/2018 13:50:25 Vp Respiratory(s): Marie Mcneal [facility] sent: BI-RADS 1/2 Ultrasound BI-RADS: 2 Benign- -Read by: Von Mcmullen MDDictated Date/time: 06/07/18 13:50Electronically Signed by: Von Mcmullen MD 06/07/1813:50FINAL REPORT [facility] Digital Mammo DX Phan [id number] 12:42:00 BILATERAL DIGITAL DIAGNOSTIC MAMMOGRAM WITH CAD: 06/07/2018CLINICAL: Mastodynia/N 64.4. Current study was evaluated with a Computer Aided Detection (CAD) system. COMPARISON:No prior exams were available for comparison. TECHNIQUE: Mammographi c views were obtained using digital acquisition. Currentstudy was also evaluated with a Computer Aided Detection (CAD) system.FINDINGS:There are scattered fibro glandular densities in both breasts. No significant masses, calcifications, or o ther findings are seen in eitherbreast. IMPRESSION: BENIGNRECOMMENDATION:There i s no mammographic abnormality seen in either breast tocorrespond with the pain; however, further workup with ultrasound isrecommended. There is no mammographic evidence of malignancy. A 1 year screening mammogramis recommended.(06/08/2019) This exam was interpreted at [id number] for Estefani SL 15. Professional serv ices are provided by the [facility] AndersonDivision of Diagnostic Imaging.Bon Cabello M.D. cm/penrad:06/07/2018 13:10:38 Imaging Technologis t(s): RT Mariya(R)(M), [facility] sent: BI-RADS 1/2 Mammogram BI-RADS: 2 Benign--Read by: Von Mcmullen MDDictated Date/time: 06/07/18 13:10Electronically Signed by: Von Mcmullen MD 06/07/1813:10FINAL REPORTGunn[facility] Hospital [facility]] LIPID PANEL 2018-04-09 09:15:00* Test Item Value Reference Range Interpretation Comments CHOLESTEROL, TOTAL; Above High Threshold (test code = 2093-3) 244 m g/dl <200 HDL CHOLESTEROL; Normal (test code = 2085-9) 56 mg/dl >50 N TRIGLYCERIDES; Normal (test code = 2571-8) 125 mg/dl <150 N LDL-CHOLESTEROL; Above High Threshold (test code = 44801-3) 163 {MG/DL GAYLE} Reference range: <100 Desirable range <1 00 mg/dL for primary prevention; <70 mg/dL for patients with CHD or diabetic patients with > or = 2 CHD risk factors. LDL-C is now calculated using the Amanda calculation, which is a validated novel method providing better accuracy than the Friedewald equation in the estimation of LDL-C. Jadiel SS et al. MASON. 2013;310(19): 7289-5101 (http ://education.MarkTend/faq/BOW355) CHOL/HDLC RATIO (test code = CHOL/HDLC RATIO) 4.4 {CALC} <5.0 N NON HDL CHOLESTEROL (test code = NON HDL CHOLESTEROL) 188 {MG/DL C AL} <130 For patients with diabetes plus 1 major ASCVD risk factor, treating to a non-HDL-C goal of <100 mg/dL (LDL-C of <70 mg/dL) is considered a therapeutic option. [facility]] CMP [id number] 09:15:00* Test Item Value Reference Range Interpretation Comments GLUCOSE; Normal (test code = 1547-9) 85 mg/dl 65-99 N Fasting reference interval UREA NITROGEN (BUN) (test code = UREA NITROGEN (BUN)) 18 mg/dl 7-25 N CREATININE (test code = CREATININE) 0.72 mg/dl 0.50-1.10 N eGFR NON- (test code = eGFR NON-ESCOBAR N LUXEMBOURGER) 104 {ML/MIN/1.7} > OR = 60 N eGFR (test code = eGFR ) 12 1 {ML/MIN/1.7} > OR = 60 N BUN/CREATININE RATIO (test code = BUN/CREATININE RATIO) NOT APPLICA BLE 6-22 SODIUM (test code = SODIUM) 138 mmol/L 135-146 N POTASSIUM (test code = POTASSIUM) 4.6 mmol/L 3.5-5.3 N CHLORIDE (test code = CHLORIDE) 105 mmol/L 98-110 N CARBON DIOXIDE (test code = CARBON DIOXIDE) 26 mmol/L 20-31 N CALCIUM (test code = CALCIUM) 9.1 mg/dl 8.6-10.2 N PROTEIN, TOTAL (test code = PROTEIN, TOTAL) 7.3 g/dl 6.1-8.1 N ALBUMIN (test code = ALBUMIN) 4.3 g/dl 3.6-5.1 N GLOBULIN (test code = GLOBULIN) 3.0 {G/DL CALC} 1.9-3.7 N ALBUMIN/GLOBULIN RATIO (test code = ALBUMIN/GLOBULIN RATIO) 1.4 {CALC} 1.0-2.5 N BILIRUBIN, TOTAL; Normal (test code = 79907-2) 0.5 mg/dl 0.2-1.2 N ALKALINE PHSPHATASE (test code = ALKALINE PHSPHATASE) 93 u/l 33-115 N AST; Normal (test code = 1916-6) 15 u/l 10-30 N ALT; Normal (test code = 1742-6) 13 u/l 6-29 N [facility]] CBC (INCLUDES DIFF/PLT)2018-04-09 09:15:00* Test Item Value Reference Range Interpretation Comments WHITE BLOOD CELL COUNT (test code = WHITE BLOOD CELL COUNT) 5.3 {Thousand/u} 3.8-10.8 N RED BLOOD CELL COUNT (test code = RED BLOOD CELL COUNT) 4.65 {Million/uL} 3.80-5.10 N HEMOGLOBIN; Normal (test code = 28451-1) 13.4 g/dl 11.7-15.5 N HEMATOCRIT; Normal (test code = 4544-3) 40.2 % 35.0-45.0 N MCV; Normal (test code = 787-2) 86.5 fL 80.0-100.0 N MCHC; Normal (test code = 24257-2) 33.3 g/dl 32.0-36.0 N RDW; Normal (test code = 788-0) 13.8 % 11.0-15.0 N PLATELET COUNT; Normal (test code = 777-3) 305 {Thousand/u} 140-400 N MPV; Normal (test code = 68802-3) 10.7 fL 7.5-12.5 N ABSOLUTE NEUTROPHILS (test code = ABSOLUTE NEUTROPHILS) 2968 {cells/uL} 0333-8307 N ABSOLUTE LYMPHOCYTES (test code = ABSOLUTE LYMPHOCYTES) 1950 {cells/uL} 850-3900 N ABSOLUTE MONOCYTES (test code = ABSOLUTE MONOCYTES) 270 {cells/uL} 200-950 N ABSOLUTE EOSINOPHILS (test code = ABSOLUTE EOSINOPHILS) 80 {cells/u L} 15-500 N ABSOLUTE BASOPHILS (test code = ABSOLUTE BASOPHILS) 32 {cells/uL} 0 -200 N NEUTROPHILS (test code = NEUTROPHILS) 56 % N LYMPHOCYTES (test code = LYMPHOCYTES) 36.8 % N MONOCYTES; Normal (test code = 37330-5) 5.1 % N EOSINOPHILS; Normal (test code = 92882-0) 1.5 % N BASOPHILS; Normal (test code = 64743-1) 0.6 % N [facility]] TSH, 3RD GENERATION W/REFLEX TO FT4 2018-04-09 09:15:00* Test Item Value Reference Range Interpretation Comments TSH, 3RD GENERATION W/REFLEX TO FT4 (jerry t code = TSH, 3RD GENERATION W/REFLEX TO FT4) 1.43 {MIU/L} N Reference Range > or = 20 Years 0.40-4.50 Ranges First trimester 0.26-2.66 Second trimester 0.55-2.73 Third trimester 0.43-2.91 [facility]] LIPID [id number] 09:20:00* Test Item Value Reference Range Interpretation Comments CHOLESTEROL, TOTAL; Above High Threshold (test code = 2093-3) 251 m g/dl <200 HDL CHOLESTEROL; Below Low Threshold (test code = 2085-9) 47 mg/dl >50 TRIGLYCERIDES; Above High Threshold (test code = 2571-8) 279 mg/dl <150 LDL-CHOLESTEROL; Above High Threshold (test code = 84373-5) 158 {MG/DL GAYLE} Reference range: <100 Desirable range <1 00 mg/dL for patients with CHD ordiabetes and <70 mg/dL for diabetic patients withknown heart disease. LDL-C is now calculated using the Jadiel-Josie calculation, which is a validated novel method providing better accuracy than the Friedewald equation in the estimation of LDL-C. Jadiel MENDOZA et al. MASON. 2013;310(19): 3677-0784 (http://education.StartupBlink.Beepi/faq/ZQN042) CHOL/HDLC RATIO (test code = CHOL/HDLC RATIO) 5.3 {CALC} <5.0 NON HDL CHOLESTEROL (test code = NON HDL CHOLESTEROL) 204 {MG/DL C AL} <130 For patients with diabetes plus 1 major ASCVD risk factor, treating to a non-HDL-C goal of <100 mg/dL (LDL-C of <70 mg/dL) is considered a therapeutic option. [facility]] CMP [id number] 09:20:00* Test Item Value Reference Range Interpretation Comments GLUCOSE; Normal (test code = 1547-9) 92 mg/dl 65-99 N Fasting reference interval UREA NITROGEN (BUN) (test code = UREA NITROGEN (BUN)) 17 mg/dl 7-25 N CREATININE (test code = CREATININE) 0.73 mg/dl 0.50-1.10 N eGFR NON- (test code = eGFR NON-ESCOBAR N LUXEMBOURGER) 102 {ML/MIN/1.7} > OR = 60 N eGFR (test code = eGFR ) 11 9 {ML/MIN/1.7} > OR = 60 N BUN/CREATININE RATIO (test code = BUN/CREATININE RATIO) NOT APPLICA BLE 6-22 SODIUM (test code = SODIUM) 138 mmol/L 135-146 N POTASSIUM (test code = POTASSIUM) 4.3 mmol/L 3.5-5.3 N CHLORIDE (test code = CHLORIDE) 104 mmol/L 98-110 N CARBON DIOXIDE (test code = CARBON DIOXIDE) 28 mmol/L 20-31 N CALCIUM (test code = CALCIUM) 9.4 mg/dl 8.6-10.2 N PROTEIN, TOTAL (test code = PROTEIN, TOTAL) 7.1 g/dl 6.1-8.1 N ALBUMIN (test code = ALBUMIN) 4.2 g/dl 3.6-5.1 N GLOBULIN (test code = GLOBULIN) 2.9 {G/DL CALC} 1.9-3.7 N ALBUMIN/GLOBULIN RATIO (test code = ALBUMIN/GLOBULIN RATIO) 1.4 {CALC} 1.0-2.5 N BILIRUBIN, TOTAL; Normal (test code = 47178-5) 0.4 mg/dl 0.2-1.2 N ALKALINE PHOSPHATE (test code = ALKALINE PHOSPHATE) 85 u/l 33 -115 N AST; Normal (test code = 1916-6) 18 u/l 10-30 N ALT; Normal (test code = 1742-6) 18 u/l 6-29 N [facility]] CBC (INCLUDES DIFF/PLT)2017-08-09 09:20:00* Test Item Value Reference Range Interpretation Comments WHITE BLOOD CELL COUNT (test code = WHITE BLOOD CELL COUNT) 6.3 {Thousand/u} 3.8-10.8 N RED BLOOD CELL COUNT (test code = RED BLOOD CELL COUNT) 4.60 {Million/uL} 3.80-5.10 N HEMOGLOBIN; Normal (test code = 05888-0) 13.4 g/dl 11.7-15.5 N HEMATOCRIT; Normal (test code = 4544-3) 39.9 % 35.0-45.0 N MCV; Normal (test code = 787-2) 86.7 fL 80.0-100.0 N MCHC; Normal (test code = 20237-2) 33.6 g/dl 32.0-36.0 N RDW; Normal (test code = 788-0) 13.4 % 11.0-15.0 N PLATELET COUNT; Normal (test code = 777-3) 312 {Thousand/u} 140-400 N MPV; Normal (test code = 75769-4) 11.3 fL 7.5-12.5 N ABSOLUTE NEUTROPHILS (test code = ABSOLUTE NEUTROPHILS) 3982 {cells/uL} 5842-7879 N ABSOLUTE LYMPHOCYTES (test code = ABSOLUTE LYMPHOCYTES) 1865 {cells/uL} 850-3900 N ABSOLUTE MONOCYTES (test code = ABSOLUTE MONOCYTES) 302 {cells/uL} 200-950 N ABSOLUTE EOSINOPHILS (test code = ABSOLUTE EOSINOPHILS) 120 {cells/ uL} 15-500 N ABSOLUTE BASOPHILS (test code = ABSOLUTE BASOPHILS) 32 {cells/uL} 0 -200 N NEUTROPHILS (test code = NEUTROPHILS) 63.2 % N LYMPHOCYTES (test code = LYMPHOCYTES) 29.6 % N MONOCYTES; Normal (test code = 07083-5) 4.8 % N EOSINOPHILS; Normal (test code = 31848-3) 1.9 % N BASOPHILS; Normal (test code = 09941-9) 0.5 % N [facility]] TSH, 3RD GENERATION W/REFLEX TO FT4 2017-08-09 09:20:00* Test Item Value Reference Range Interpretation Comments TSH, 3RD GENERATION W/REFLEX TO FT4 (jerry t code = TSH, 3RD GENERATION W/REFLEX TO FT4) 1.52 {MIU/L} N Reference Range > or = 20 Years 0.40-4.50 Ranges First trimester 0.26-2.66 Second trimester 0.55-2.73 Third trimester 0.43-2.91 [facility]] VITAMIN D, 25-HYDROXY, LC/MS/[id number] 09:20:00* Test Item Value Reference Range Interpretation Comments VITAMIN D, 25-OH, TOTAL (test code = VITAMIN D, 25-OH, TOTAL) 21 ng /ml 30-100 Vitamin D Status 25-OH Vitamin D: Deficiency: <20 ng/mLInsufficiency: 20 - 29 ng/mLOptimal: > or = 30 ng/mL For 25-OH Vitamin D testing on patients on D2-supplementation and patients for whom quantitation of D2 and D3 fractions is required, the QuestAssureD(TM)25-OH VIT D, (D2,D3), LC/MS/MS is recommended: order code 08279 (patients >2yrs). For more information on this test, go to:http://education.Archive.Beepi/faq/ZCR168(This link is being provided for informational/educational purposes only.) [facility][Q] TESTOSTERONE, TOTAL, LC/MS/[id number] 09:20:00* Test Item Value Reference Range Interpretation Comments TESTOSTERONE, TOTAL, LC/MS/MS (test code = TESTOSTERON E, TOTAL, LC/MS/MS) 13 ng/dl 2-45 This test was devthaio kiki and its analytical performance characteristics have been determined by travayl Isabela Ledezma. It has not been cleared or approved by the USFood and Drug Adm inistration. This assay has been validated pursuant to the CLIA regulations and is used for clinical purposes. [facility]
--- OUTSIDE RECORDS SUMMARY | 2020-05-07 18:05 | XMS REPORT | Summary of Care ---
Author Author [facility] Address [address] [place] [address] Phone Unavailable Care Team Providers Care Telephone Maintainer Name Role Phone REYES DRUM OPERATOR, MIMI Unavailable Unavailable REYES [employer] DYNAM[employer] MANAGER ARCHITECT-C, MIMI THI Unavailable Unavailable Garland HEWITT, Joshua Unavailable Unavailable MAYTE HEWITT, MARYSE Villasenor Unavailable Unavailable BRIEN HEWITT, RONN Unavailable Unavailable DUANE HEWITT, NOAH GLOVER Unavailable Unavailable PAULETTE COATES MD, BINTA BRADLEY Unavailable Unavailab Jignesh HEWITT MD, KRYS ANTOINE Unavailable Unavailable MACKENZIE HEWITT, LEAH Martinez Unavailable Unavailable VETO RODRIGEZ, MURIEL Quijano Unavailable Unavailable AMBER HEWITT, MILDRED Unavailable Unavailable Unavailable Unavailable Functional Status Name Dates Details Functional status health issues are not documented Status: Name Dates Details Cognitive status health issues are not d ocumented Status: Problems Name Dates Details Encounter for monitoring testosterone re placement therapy (V58.83, Z51.81) Status: Active Hypoglycemia (251.2, E16.2) Status: Active Aspirin long-term use (V58.66, Z79.82) Status: Active Abnormal EKG (794.31, R94.31) Status: Active Elevated testosterone level in female (2 59.9, R79.89) Status: Active Need for Tdap vaccination (V06.1, Z23) Status: Active Cervical cancer screening (V76.2, Z12.4) Status: Active Sensation of pressure in bladder area (5 96.89, R39.89) Status: Active Atrophic vaginitis (627.3, N95.2) Status: Active Abdominal tenderness, RLQ (right lower q uadrant) (789.63, R10.813) Status: Active Colon cancer screening (V76.51, Z12.11) Status: Active Fatigue (780.79, R53.83) Status: Active Multiple joint pain (719.49, M25.50) Status: Active Screening for HIV (human immunodeficienc y virus) (V73.89, Z11.4) Status: Active Tenosynovitis, de Quervain (727.04, M65. 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 Quantity: 90 MIMI REYES APRN * Start : 09-Mar-2017 Active Aspirin 81 MG TABS * Refills: 0 Active Vitamin D (Ergocalciferol) 1.25 MG (02517 UT) Oral Capsule TAKE 1 CAPSULE WEEKLY * Quantity: 12 Refills: 1 MIMI REYES APRN * Start : 19-Apr-2019 Active Solifenacin Succinate 10 MG Oral Tablet TAKE 1 TABLET DAILY * Quantity: 30 Refills: 3 MIMI REYES APRN * Start : 17-May-2019 Active Fluticasone Propionate 50 MCG/ACT Nasal Suspension USE 1 SPRAY IN EACH NOSTRIL TWICE DAILY. * Quantity: 1 Refills: 1 MIMI REYES APRN * Start : 18-Jul-2019 Active 15.8 ML Bottle VESIcare 5 MG Oral Tablet Take one tablet daily * Refills: 0 Active Allergies and Adverse Reactions Name Dates Details Penicillins (Allergy) Reaction: Vomiting Status: Active Past Medical History Name Dates Details History of depression (V11.8, Z86.59) Status: Resolved History of endometriosis (V13.29, Z87.42 ) Status: Resolved History of pulmonary embolism (V12.55, Z 86.711) Status: Resolved History of uterine leiomyoma (V13.29, Z8 6.018) Status: Resolved Procedures Procedure Dates Details Polysomnography with pH probe Date: 23-Nov-2019 [[facility]] URINALYSIS, COMPLETE W/REFLEX TO CULTURE Date: 2019 [[facility]] URINALYSIS, COMPLETE W/REFLEX TO CULTURE Date: 020 History of section Completed History of Abdominoplasty Completed History of Breast augmentation Completed History of Salpingo-oophorectomy Complet ed History of Hysterectomy Completed Immunization Name Dates Details Tdap Lot #: [id number] on: 06-Mar-2018 Influenza Comments: refused 07/18/19 Family History Name Dates Details Family history of High cholesterol (272. 0, E78.00) Status: Active Family history of hypertension (V17.49, Z82.49) Status: Active Name Dates Details Family history of diabetes mellitus (V18 .0, Z83.3) Status: Active Social History Name Dates Details - Status: Name Dates Details Never smoked tobacco (finding) Vital Signs Date Test Result Details [id number] Systolic blood pressure 114 mm[Hg] Status: Comments : Location: LUE; Position: Sitting Diastolic blood pressure 78 mm[Hg] Status: Comment s: Location: LUE; Position: Sitting Body height 59 in Status: Weight 116.125 lb Status: Body mass index (BMI) [Ratio] 23.45 kg/m2 Status: Body surface area Derived from formula 1.46 m2 S tatus: Body temperature 98 f Status: Comments: Me thod: Temporal Heart Rate 77 /min Status: Respiratory rate 16 /min Status: Results Date Description Value Details Results not documented Plan of Care Name Dates Details Planned Observations Planned Goals not documented Instructions Name Dates Details Instructions not documented Encounters Appointment; BINTA CALDWELL P.A. Encounter Diagnosis: Problem not documented On: 06-Mar-2018 11:00 Appointment; MIMI REYES APRN Encounter Diagnosis: Problem not documented On: 02-May-2018 16:15 Appointment; BINTA CALDWELL P.A. Encounter Diagnosis: Problem not documented On: 09-Jun-2018 10:45 Appointment; MIMI REYES APRN Encounter Diagnosis: Problem not documented On: 30-Jul-2018 13:00 Appointment; MIMI REYES APRN Encounter Diagnosis: Problem not documented On: 29-Sep-2018 10:00 Appointment; LEAH MANN M.D. Encounter Diagnosis: Problem not documented On: 01-Dec-2018 10:30 Appointment; MIMI REYES APRN Encounter Diagnosis: Problem not documented On: 25-Dec-2018 18:45 Appointment; MILDRED CLARK M.D. Encounter Diagnosis: Problem not documented On: 25-Jan-2019 9:00 Appointment; MILDRED CLARK M.D. Encounter Diagnosis: Problem not documented On: 21-Feb-2019 15:30 Appointment; JOSHUA GRANDA M.D. Encounter Diagnosis: Problem not documented On: 25-Feb-2019 14:00 Appointment; MILDRED CLARK M.D. Encounter Diagnosis: Problem not documented On: 26-Feb-2019 11:30 Appointment; MIMI REYES APRN Encounter Diagnosis: Problem not documented On: 17-Apr-2019 10:00 Appointment; MILDRED CLARK M.D. Encounter Diagnosis: Problem not documented On: 17-May-2019 15:00 Appointment; MILDRED CLARK M.D. Encounter Diagnosis: Problem not documented On: 13-Jun-2019 15:00 Appointment; MIMI REYES APRN Encounter Diagnosis: Problem not documented On: 18-Jul-2019 15:45 Appointment; MIMI REYES APRN Encounter Diagnosis: Problem not documented On: 05-Oct-2019 10:45 Appointment; MIMI REYES APRN Encounter Diagnosis: Problem not documented On: 06-Nov-2019 17:45 Appointment; LEAH MANN M.D. Encounter Diagnosis: Problem not documented On: 23-Nov-2019 10:45
--- OUTSIDE RECORDS SUMMARY | 2020-05-07 18:05 | XMS REPORT | Summary of Care ---
Author Author [facility] Organization [facility] Address Unknown Phone Unavailable Encounter HQ Encntr_alias(FIN) [id number] Date(s): 06/07/18 - 06/07/18 [facility] - [place] [address] [place] [address] [phone] Encounter Diagnosis Mastodynia (Final) - 08/17/18 Discharge Disposition: Home or Self Care Attending Physician: Catalino Garcia MD Referring Physician: [id number] -BINTA CALDWELL Vital Signs No data available for this [...]
--- OUTSIDE RECORDS SUMMARY | 2020-05-07 18:05 | XMS REPORT | Continuity of Care Document ---
Author Author [employer] Address Unknown Phone Unavailable Care Team Providers Care Ventilating Equipment Installer Name Role Phone [facility] POLY[employer] Information Exchange Unavailable Un available Problems Problem Status Onset Date Classification Date Reported Comments Source HST - [id number] Active 12/13/2019 [facility] COLON / MAC Active 02/26/2019 [facility] Mastodynia 08/17/2018 12/25/2018 [facility] [place] R10.811 / R10.813 / R82.90 Act nick 06/11/2018 [facility] 611.71 - MASTODYNIA Active 04/30/2018 [facility] [place] M54.6 - PAIN IN THORACIC SPINE Active 02/07/2017 [facility] [place] Abdominal pain (finding) Resol sam Problem 11/2019 [facility] Depression - motion (qualifier value) Resolved Problem 12/20/2019 [facility] Diarrhea (finding) Resolved Problem 12/20/2019 [facility] Endometriosis (disorder) Resol sam Problem 11/2019 [facility] History of - pulmonary embolus (context- dependent category) Resolved Pr oblem 12/20/2019 [facility] Uterine leiomyoma (disorder) R esolved Problem 11/2019 [facility] Medications Medication Details Route Status Patient Instructions Ordering Provider Order Date Source Sodium Chloride 0.9% IV 1,000 mL 1,000 mL, Rate: 25 ml/hr, Infuse over: 40 hr, Route: IV, Dosing Weight 53.182 kg, Total Volume: 1,000, Start date: 02/28/19 9:01:00 CDT, Duration: 1 day, Stop date: 03/01/19 9:00:00 CDT, 1.51, m2 Inactive 02/28/2019 [facility] Phenazopyridine hydrochloride 200 MG Ora l Tablet [Pyridium] 200 mg = 1 tab, PO, TID, PRN Dysuria Active 02/27/2019 [facility] Aspirin 81 MG Enteric Coated Tablet 81 mg = 1 tab, PO, Daily Active 02/27/2019 [facility] Estradiol 0.1 MG/ML Vaginal Cream 1 gm =, VAG, Bedtime, Insert 1 gram in vagina using applicator twice weekly at bedtime Active 02/27/2019 [facility] sertraline 50 mg oral tablet 5 0 mg = 1 tab, PO, Daily Active 02/27/2019 [facility] dicyclomine 20 mg oral tablet 20 mg = 1 tab, PO, BID Active 02/27/2019 [facility] Allergies, Adverse Reactions, Alerts Substance Category Reaction Severity Reaction type Status Date Reported Comments Source penicillins Assertion Drug allergy Active [facility] Immunizations No Data Provided for This Section Results No Data Provided for This Section Pathology Reports No Data Provided for This Section Diagnostic Reports Report Value Date Source Breast Complete Kash US COMPLETE ULTRASOUND OF BOTH BREASTS AND AXILLA: 06/07/2018 CLINICAL: /N64.4 Mastodynia. COMPARISON:Comparison is made to exam dated: 06/07/2018 mammogram - [facility]. TECHNIQUE: Color flow and real-time ultrasound of both breasts four quadrants, retroareolar, and axilla regions were performed on the areas of interest. FINDINGS: No abnormalities were seen sonographically in either breast or either axilla. An island of dense tissue is seen in the area of mammographic asymmetry in the upper outer right breast. No sonographic correlate is identified for the patient's breast pain. IMPRESSION: BENIGN RECOMMENDATION:Clinical management of the patient's pain is recommended. There is no sonographic evidence of malignancy. A 1 year screening mammogram is recommended.(06/08/2019) This exam was interpreted at [id number] for DIEGO Fink, SL 15. Professional services are provided by the [facility]. Bon Cabello M.D., cm/daisy:06/07/2018 13:50:25 Global Upstream Marketing Manager(s): Marie Mcneal [facility] letter sent: BI-RADS 1/2 Ultrasound BI-RADS: 2 Benign 06/07/2018 [facility]IE[facility] Fink Breast Mammo Diag KASH incl CAD MA BILATERAL DIGITAL DIAGNOSTIC MAMMOGRAM WITH CAD: 06/07/2018 CLINICAL: Mastodynia/N64.4. Current study was evaluated with a Computer Aided Detection (CAD) system. COMPARISON:No prior exams were available for comparison. TECHNIQUE: Mammographic views were obtained using digital acquisition. Current study was also evaluated with a Computer Aided Detection (CAD) system. FINDINGS: There are scattered fibroglandular densities in both breasts. No significant masses, calcifications, or other findings are seen in either breast. IMPRESSION: BENIGN RECOMMENDATION:There is no mammographic abnormality seen in either breast to correspond with the pain; however, further workup with ultrasound is recommended. There is no mammographic evidence of malignancy. A 1 year screening mammogram is recommended.(06/08/2019) This exam was interpreted at [id number] for DIEGO Fink SL 15. Professional services are provided by the [facility]. Bon Cabello M.D., cm/penrad:06/07/2018 13:10:38 Global Upstream Marketing Manager(s): RT Mariya(R)(M), [facility] letter sent: BI-RADS 1/2 Mammogram BI-RADS: 2 Benign 06/07/2018 DIE[facility] Fink Spine Thoracic wo contrast MRI THORACIC SPINE MRI: 02/15/2017 TECHNIQUE: Sagittal T1, sagittal T2 with fat saturation, axial T1 and axial T2 images were obtained. FINDINGS: The vertebrae are normal in shape, signal intensity and alignment. The intervertebral disks are well hydrated and normal in height. No significant disc bulge/protrusion. The spinal canal is normal in size and the foramina are patent. The thoracic spine cord is of normal size and signal intensity. Paravertebral soft tissues are normal. IMPRESSION: Normal thoracic spine noncontrast MRI. 02/15/2017 DIEGO Fink Chest 2 views DX EXAM: Chest 2 views DX HISTORY: chest pain COMPARISON: None The heart size is normal and the lungs are clear. There is no pleural effusion or pneumothorax. No gross skeletal abnormality. IMPRESSION: No acute abnormality. 01/16/2017 [facility] Fink Spine thoracic 3 views DX CLIN ICAL HISTORY: thoracic spine pain AGE: 41 years GENDER: Female TECHNIQUE: Thoracic spine radiographs, 2 views. COMPARISON: None FINDINGS: There is no evidence of thoracic spine fracture or traumatic subluxation. Osseous mineralization is within normal limits. There is preservation of the normal thoracic kyphosis. IMPRESSION: No evidence of thoracic spine fracture or traumatic subluxation. No significant degenerative disc disease. 01/16/2017 DIEGO Fink Consultation Notes No Data Provided for This Section Discharge Summaries No Data Provided for This Section History and Physicals No Data Provided for This Section Vital Signs Vital Sign Value Date Comments Source Systolic (mm Hg) 125 02/28/2019 [facility] Diastolic (mm Hg) 80 02/28/2019 [facility] Respitory Rate 15 02/28/2019 [facility] Systolic (mm Hg) 98 02/28/2019 [facility] Diastolic (mm Hg) 76 02/28/2019 [facility] Respitory Rate 14 02/28/2019 [facility] Systolic (mm Hg) 116 02/28/2019 [facility] Diastolic (mm Hg) 75 02/28/2019 [facility] Respitory Rate 14 02/28/2019 [facility] Heart Rate 84 02/28/2019 [facility] Height 149.86 cm 02/27/2019 [facility] Weight 53.182 02/27/2019 [facility] BMI Calculated 23.68 02/27/2019 [facility] Encounters Location Location Details Encounter Type Encounter Number Reason For Visit Attending Provider ADM Date DC Date Status Source [facility] [place] [facility] [id number] Jamin Silveira 01/16/2017 01/17/2017 [facility] [place] [facility] [place] [facility] [id number] Jamin Silveira 02/15/2017 02/16/2017 [facility] [place] [facility] [place] [facility] [id number] BINTA CALDWELL 06/07/2018 06/08/2018 [facility] [place] [facility] Outpatient [id number] Non Physician 06/23/2018 06/23/[address] [facility] Bedded Outpatient [id number] Joshua Haque 02/28/2019 02/28/[address] [facility] Outpatient [id number] Justyna Fernández 12/18/2019 12/19/2019 [facility] Procedures Procedure Code Date Perfomer Comments Source Abdominoplasty [id number] [facility] Breast augmentation [id number] [facility] section [id number] [facility] Hysterectomy [id number] [facility] Salpingo-oophorectomy [id number] [facility] Assessment and Plan No Data Provided for This Section Plan of Care No Data Provided for This Section Social History Social History Date Source Social History TypeResponse Alcohol Current Substance Abuse Use: None. Smoking Status Never smoker; Exposure to Tobacco Smoke None; Cigarette Smoking Last 365 Days No; Reg Smoking Cessation Counseling No entered on: 02/27/19 02/27/2019 [place] No data available for this section 06/08/2018 [facility] Fink Family History No Data Provided for This Section Advance Directives No Data Provided for This Section Functional Status No Data Provided for This Section
--- OUTSIDE RECORDS SUMMARY | 2020-05-07 18:05 | XMS REPORT | Summary of Care ---
Author Author [facility] Address [address] [place] [address] Phone Unavailable Care Team Providers Care Sanitation Manager Name Role Phone REYES SALES EXEC, MIMI Unavailable Unavailable REYES KINDERGARTEN CLASSROOM TEACHER-C, MIMI THI Unavailable Unavailable Joshua Granda MD Unavailable Unavailable MAYTE HEWITT, MARYSE Villasenor Unavailable Unavailable DUANE HEWITT, NOAH GLOVER Unavailable Unavailable PAULETTE COATES NC, BINTA BRADLEY Unavailable Unavailab Jignesh HEWITT NC, KRYS ANTOINE Unavailable Unavailable MACKENZIE HEWITT, LEHA Martinez Unavailable Unavailable VETO DO, MURIEL Quijano Unavailable Unavailable AMBER HEWITT, MILDRED Unavailable Unavailable Unavailable Unavailable Functional Status Name Dates Details Functional status health issues are not documented Status: Name Dates Details Cognitive status health issues are not d ocumented Status: Problems Name Dates Details Abdominal tenderness, RLQ (right lower q uadrant) (789.63, R10.813) Status: Active Vitamin D deficiency (268.9, E55.9) Status: Active H/O breast implant (V43.82, Z98.82) Status: Active Mastalgia in female (611.71, N64.4) Status: Active UTI symptoms (788.99, R39.9) Status: Active Low back pain (724.2, M54.5) Status: Active Moderate major depression (296.22, F32.1 ) Status: Active Neck pain, bilateral (723.1, M54.2) Status: Active Tenosynovitis, de Quervain (727.04, M65. 4) Status: Active Screening for breast cancer (V76.10, Z12 .39) Status: Active Hyperlipidemia (272.4, E78.5) Status: Active Screening for HIV (human immunodeficienc y virus) (V73.89, Z11.4) Status: Active Multiple joint pain (719.49, M25.50) Status: Active Fatigue (780.79, R53.83) Status: Active Colon cancer screening (V76.51, Z12.11) Status: Active Atrophic vaginitis (627.3, N95.2) Status: Active Sensation of pressure in bladder area (5 96.89, R39.89) Status: Active Need for Tdap vaccination (V06.1, Z23) Status: Active Cervical cancer screening (V76.2, Z12.4) Status: Active Elevated testosterone level in female (2 59.9, R79.89) Status: Active Abnormal EKG (794.31, R94.31) Status: Active Aspirin long-term use (V58.66, Z79.82) Status: Active Hypoglycemia (251.2, E16.2) Status: Active Encounter for monitoring testosterone re placement therapy (V58.83, Z51.81) Status: Active 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 3) Status: Active Medications Name Dates Details Sertraline HCl - 50 MG Oral Tablet TAKE 1 TABLET DAILY. Quantity: 90 MIMI REYES APRN * Start : 09-Mar-2017 Active Vitamin D (Ergocalciferol) 1.25 MG (69317 UT) Oral Capsule TAKE 1 CAPSULE WEEKLY [...] Start : 18-Jul-2019 Active 15.8 ML Bottle Aspirin 81 MG TABS * Refills: 0 Active Allergies and Adverse Reactions Name Dates Details Penicillins (Allergy) Reaction: Vomiting Status: Active Past Medical History Name Dates Details History of depression (V11.8, Z86.59) Status: Resolved History of endometriosis (V13.29, Z87.42 ) Status: Resolved History of pulmonary embolism (V12.55, Z 86.711) Status: Resolved History of uterine leiomyoma (V13.29, Z8 6.018) Status: Resolved Procedures Procedure Dates Details [[facility]] URINALYSIS, COMPLETE W/REFLEX TO CULTURE Date: 2019 History of section Completed History of Abdominoplasty Completed History of Breast augmentation Completed History of Salpingo-oophorectomy Complet ed History of Hysterectomy Completed Immunization Name Dates Details Tdap Lot #: [id number] on: 06-Mar-2018 Influenza Comments: refused 07/18/19 Family History Name Dates Details Family history of High cholesterol (272. 0, E78.00) Status: Active Family history of hypertension (V17.49, Z82.49) Status: Active Name Dates Details Family history of diabetes mellitus (V18 .0, Z83.3) Status: Active Social History Name Dates Details - Status: Name Dates Details Never smoker Vital Signs Date Test Result Details No Known Vitals to report Results Date Description Value Details Results not documented Plan of Care Name Dates Details Planned Observations Planned Goals not documented Planned Encounters Appointment; MIMI REYES APRN On: 06-Nov-2019 17:45 Instructions Name Dates Details Instructions not documented [...]
--- OUTSIDE RECORDS SUMMARY | 2020-05-07 18:05 | XMS REPORT | Summary of Care ---
Author Author [facility] Organization [facility] Address Unknown Phone Unavailable Encounter HQ Encntr_alias(FIN) [id number] Date(s): 01/16/17 - 01/16/17 [facility] Outpatient Imaging - [address] [phone] Discharge Disposition: Home or Self Care Attending Physician: Jamin Silveira MD Vital Signs No data available for this section Problem List No data available for this section Allergies, Adverse Reactions, Alerts No data available for this section Medications No data available for this section Results No data available for this section Immunizations No data available for this section Procedures No data available for this section Social History No data available for this section Assessment and Plan No data available for this section
--- OUTSIDE RECORDS SUMMARY | 2020-05-07 18:05 | XMS REPORT | Summary of Care ---
Author Author [facility] Address [address] [place] [address] Phone Unavailable Care Team Providers Care Baccarat Manager Name Role Phone REYES HEAD STOCK OPERATOR, MIMI Unavailable Unavailable REYES LEASING MACHINE TENDER-C, MIMI THI Unavailable Unavailable Joshua Granda MD Unavailable Unavailable MAYTE HEWITT, MARYSE Villasenor Unavailable Unavailable DUANE HEWITT, NOAH GLOVER Unavailable Unavailable PAULETTE PA AR, BINTA BRADLEY Unavailable Unavailab Jignesh HEWITT AR, KRYS ANTOINE Unavailable Unavailable MACKENZIE HEWITT, LEAH Martinez Unavailable Unavailable VETO DO, MURIEL Quijano [...] in female (2 59.9, R79.89) Status: Active Cervical cancer screening (V76.2, Z12.4) Status: Active Need for Tdap vaccination (V06.1, Z23) Status: Active Sensation of pressure in bladder area (5 96.89, R39.89) Status: Active Atrophic vaginitis (627.3, N95.2) Status: Active Abdominal tenderness, RLQ (right lower q uadrant) (789.63, R10.813) Status: Active Colon cancer screening (V76.51, Z12.11) Status: Active Fatigue (780.79, R53.83) Status: Active Multiple joint pain (719.49, M25.50) Status: Active Screening for HIV (human immunodeficienc y virus) (V73.89, Z11.4) Status: Active Hyperlipidemia (272.4, E78.5) Status: Active Screening for breast cancer (V76.10, Z12 .39) Status: Active Tenosynovitis, de Quervain (727.04, M65. 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 Quantity: 90 REYES MIMI [place] * Start : 09-Mar-2017 Active Aspirin 81 MG TABS * Refills: 0 Active Vitamin D (Ergocalciferol) 1.25 MG (71512 UT) Oral Capsule TAKE 1 CAPSULE WEEKLY * Quantity: 12 Refills: 1 REYES MIMI [place] * Start : 19-Apr-2019 Active Solifenacin Succinate 10 MG Oral Tablet TAKE 1 TABLET DAILY * Quantity: 30 Refills: 3 REYES MIMI [place] * Start : 17-May-2019 Active Fluticasone Propionate 50 MCG/ACT Nasal Suspension USE 1 SPRAY IN EACH NOSTRIL TWICE DAILY. * Quantity: 1 Refills: 1 REYES MIMI [place] * Start : 18-Jul-2019 Active 15.8 ML Bottle Allergies and Adverse Reactions Name Dates Details Penicillins (Allergy) Reaction: Vomiting Status: Active Past Medical History Name Dates Details History of depression (V11.8, Z86.59) Status: Resolved History of endometriosis (V13.29, Z87.42 ) Status: Resolved History of pulmonary embolism (V12.55, Z 86.711) Status: Resolved History of uterine leiomyoma (V13.29, Z8 6.018) Status: Resolved Procedures Procedure Dates Details [[facility]] URINALYSIS, COMPLETE W/REFLEX TO CULTURE Date: 2019 History of section Completed History of Abdominoplasty Completed History of Breast augmentation Completed History of Salpingo-oophorectomy Complet ed History of Hysterectomy Completed Immunization Name Dates Details Tdap Lot #: [id number] on: 06-Mar-2018 Influenza Comments: refused 07/18/19 Family [...]
--- OUTSIDE RECORDS SUMMARY | 2020-05-07 18:05 | XMS REPORT | Summary of Care ---
Author Author [facility] Unknown Address Unknown Phone Unavailable Care Team Providers Care Quality Assurance Nurse Name Role Phone ERIC Acosta, MIMI Unavailable Unavailable ERIC METAL FURNITURE REPAIRER-C, MIMI PERLA Unavailable Unavailable Garland HEWITT, Joshua Unavailable Unavailable MAYTE HEWITT, MARYSE Villasenor Unavailable Unavailable DUANE HEWITT, NOAH GLOVER Unavailable Unavailable PAULETTE PA UT, BINTA BRADLEY Unavailable Unavailab Jignesh HEWITT NM, KRYS ANTOINE Unavailable Unavailable MACKENZIE HEWITT, LEAH [...] TAKE 1 TABLET DAILY. Quantity: 90 REYES N.P., MIMI * Start : 09-Mar-2017 Active Aspirin 81 MG TABS * Refills: 0 Active Vitamin D (Ergocalciferol) 1.25 MG (15466 UT) Oral Capsule TAKE 1 CAPSULE WEEKLY * Quantity: 12 Refills: 1 REYES N.P., MIMI * Start : 19-Apr-2019 Active Solifenacin Succinate 10 MG Oral Tablet TAKE 1 TABLET DAILY * Quantity: 30 Refills: 3 REYES N.P., MIMI * Start : 17-May-2019 Active Fluticasone Propionate 50 MCG/ACT Nasal Suspension USE 1 SPRAY IN EACH NOSTRIL TWICE DAILY. * Quantity: 1 Refills: 1 REYES N.P., MIMI * Start : 18-Jul-2019 Active 15.8 ML [...] 6.018) Status: Resolved Procedures Procedure Dates Details [[facility]] URINALYSIS, COMPLETE W/REFLEX TO CULTURE Date: 2019 History of section Completed History of Abdominoplasty Completed History of Breast augmentation Completed History of Salpingo-oophorectomy Complet ed History of Hysterectomy Completed Immunization Name Dates Details Tdap Lot #: [id number] on: 06-Mar-2018 Influenza Comments: refused 07/18/19 Family History Name Dates Details Family history of High cholesterol (272. 0, E78.00) Status: Active Family history of hypertension (V17.49, Z82.49) Status: Active Name Dates Details Family history of diabetes mellitus (V18 .0, Z83.3) Status: Active Social History Name Dates Details - Status: Name Dates Details Never smoker Vital Signs Date Test Result Details [id number] BP Systolic 119 mm[Hg] Status: Comments: Lo cation: LUE; Position: Sitting BP Diastolic 80 mm[Hg] Status: Comments: Lo cation: LUE; Position: Sitting Height 59 in Status: Weight 115.3125 lb Status: Body Mass Index Calculated 23.29 kg/m2 Status: Body Surface Area Calculated 1.46 m2 Status: Temperature 98 f Status: Comments: Me thod: Temporal Heart Rate 77 /min Status: Respiration Rate 16 /min Status: Results Date Description Value Details [id number]-[id number] [O] Urine Dipstick (In Office) Glucose NEGATIVE (Normal) LEUKOCYTES NEGATIVE (Normal) NITRITE NEGATIVE (Normal) UROBILINOGEN NEGATIVE (Normal) PROTEIN NEGATIVE (Normal) pH 5 (Normal) URINE BLOOD NEGATIVE (Normal) SPECIFIC GRAVITY 1.005 (Normal) KETONES NEGATIVE (Normal) BILIRUBIN NEGATIVE (Normal) COLOR URINE DARK YELLOW (Alisha l) APPEARANCE CLEAR (Normal) Plan of Care Name Dates Details Planned Observations Planned Goals not documented Interventions Provided Medication Changes* Sertraline HCl - 50 MG Oral Tablet - Renew * Solifenacin Succinate 10 MG Oral Tablet - Renew Labs/Procedures/Imaging* [[facility]] URINALYSIS, COMPLETE W/REFLEX TO CULTURE; To Be Done: 05 Oct 2019 * [O] Urine Dipstick (In Office); Done: 05 Oct 2019 Plan* Continue Vesicare. * Send urine culture. * Continue sertraline. * Follow up if symptoms persist or worsen. Instructions Name Dates Details Instructions not documented Encounters Appointment; BINTA CALDWELL P.A. Encounter Diagnosis: Problem not documented On: 06-Mar-2018 11:00 Appointment; MIMI REYES NP Encounter Diagnosis: Problem not documented On: 02-May-2018 16:15 Appointment; BINTA CALDWELL P.A. Encounter Diagnosis: Problem not documented On: 09-Jun-2018 10:45 Appointment; MIMI REYES NP Encounter Diagnosis: Problem not documented On: 30-Jul-2018 13:00 Appointment; MIMI REYES NP Encounter Diagnosis: Problem not documented On: 29-Sep-2018 10:00 Appointment; LEAH MANN M.D. Encounter Diagnosis: Problem not documented On: 01-Dec-2018 10:30 Appointment; MIMI REYES NP Encounter Diagnosis: Problem not documented On: 25-Dec-2018 18:45 Appointment; MILDRED CLARK M.D. Encounter Diagnosis: Problem not documented On: 25-Jan-2019 9:00 Appointment; MILDRED CLARK M.D. Encounter Diagnosis: Problem not documented On: 21-Feb-2019 15:30 Appointment; JOSHUA GRANDA M.D. Encounter Diagnosis: Problem not documented On: 25-Feb-2019 14:00 Appointment; MILDRED CLARK M.D. Encounter Diagnosis: Problem not documented On: 26-Feb-2019 11:30 Appointment; MIMI REYES NP Encounter Diagnosis: Problem not documented On: 17-Apr-2019 10:00 Appointment; MILDRED CLARK M.D. Encounter Diagnosis: Problem not documented On: 17-May-2019 15:00 Appointment; MILDRED CLARK M.D. Encounter Diagnosis: Problem not documented On: 13-Jun-2019 15:00 Appointment; MIMI REYES NP Encounter Diagnosis: Problem not documented On: 18-Jul-2019 15:45 Appointment; MIMI REYES NP Encounter Diagnosis: Problem not documented On: 05-Oct-2019 10:45
--- OUTSIDE RECORDS SUMMARY | 2020-05-07 18:05 | XMS REPORT | Summary of Care ---
Author Author REGAN Knight M.A. [facility] Unknown Address Unknown Phone Unavailable Care Team Providers Care Grading Machine Operator Name Role Phone MACKENZIE Hyde, LEAH Unavailable Unavailable REYES CHAIN HOOKER, MIMI Unavailable Unavailable REYES MOBILE PHLEBOTOMIST-C, MIMI THI Unavailable Unavailable Garland HEWITT, Joshua Unavailable Unavailable MAYTE HEWITT, MARYSE Villasenor Unavailable Unavailable BRIEN HEWITT, RONN Unavailable Unavailable DUANE HEWITT, NOAH GLOVER Unavailable Unavailable PAULETTE COATES [place], BINTA BRADLEY Unavailable Unavailab Jignesh HEWITT [place], KRYS ANTOINE Unavailable Unavailable MACKENZIE HEWITT, LEAH S Unavailable Unavailable VETO RODRIGEZ, MURIEL Quijano Unavailable [...] Active UTI symptoms (788.99, R39.9) Status: Active Medications Name Dates Details Sertraline HCl - 50 MG Oral Tablet TAKE 1 TABLET DAILY. Quantity: 90 MIMI REYES APRN * Start : 09-Mar-2017 Active Aspirin 81 MG TABS * Refills: 0 Active Vitamin D (Ergocalciferol) 1.25 MG (75984 UT) Oral Capsule TAKE 1 CAPSULE WEEKLY [...] Immunization Name Dates Details Tdap Lot #: [id number] on: 06-Mar-2018 Influenza Comments: refused 07/18/19 Family History Name Dates Details Family history of High cholesterol (272. 0, E78.00) Status: Active Family history of hypertension (V17.49, Z82.49) Status: Active Name Dates Details Family history of diabetes mellitus (V18 .0, Z83.3) Status: Active Social History Name Dates Details - Status: Name Dates Details Never smoked tobacco (finding) Vital Signs Date Test Result Details [id number] Systolic blood pressure 114 mm[Hg] Status: Comments [...]
--- OUTSIDE RECORDS SUMMARY | 2020-05-07 18:05 | XMS REPORT | Summary of Care ---
Author Author [facility] Organization [facility] Address Unknown Phone Unavailable Encounter JASSON Rose(ALFONSO) [id number] Date(s): 02/28/19 - 02/28/19 [facility] [address] [place] [address]- Discharge Disposition: Home or Self Care Attending Physician: Joshua Haque MD Referring Physician: Joshua Haque MD Vital Signs 1 2 3 Most recent to oldest [Reference Range]: 149.86 cm (02/27/19 12:45 PM) Height 125/80 mmHg (02/28/19 10:56 AM) 98/76 mmHg (02/28/19 10:41 AM) 116/75 mmHg (02/28/19 10:26 AM) Blood Pressure [90-140/60-90 mmHg] 15 BRMIN (02/28/19 10:56 AM) 14 BRMIN (02/28/19 10:41 AM) 14 BRMIN (02/28/19 10:26 AM) Respiratory Rate [14-20 BRMIN] 84 bpm (02/28/19 9:02 AM) Peripheral Pulse Rate [60-100 bpm] 53.182 kg (02/27/19 12:45 PM) Weight 23.68 m2 (02/27/19 12:45 PM) Body Mass Index Problem List Condition Effective Dates Status Health Status Informan t Abdominal pain in Resolved female(Confirmed) Depression(Confirmed Resolved ) Diarrhea(Confirmed) Resolved Endometriosis(Confir Resolved med) History of pulmonary Resolved embolism(Confirmed) Uterine Resolved leiomyoma(Confirmed) Allergies, Adverse Reactions, Alerts Substance Reaction Severity Status penicillins Active Medications aspirin 81 mg tablet, enteric coated 81 mg = 1 tab, PO, Daily Start Date: 02/27/19 Status: Ordered dicyclomine 20 mg oral tablet 20 mg = 1 tab, PO, BID Start Date: 02/27/19 Status: Ordered estradiol 0.1 mg/g vaginal cream 1 gm =, VAG, Bedtime, Insert 1 gram in vagina using applicator twice weekly at bedtime Start Date: 02/27/19 Status: Ordered Pyridium 200 mg oral tablet 200 mg = 1 tab, PO, TID, PRN Dysuria Start Date: 02/27/19 Status: Ordered sertraline 50 mg oral tablet 50 mg = 1 tab, PO, Daily Start Date: 02/27/19 Status: Ordered Sodium Chloride 0.9% IV 1,000 mL 1,000 mL, Rate: 25 ml/hr, Infuse over: 40 hr, Route: IV, Dosing Weight 53.182 kg , Total Volume: 1,000, Start date: 02/28/19 9:01:00 CDT, Duration: 1 day, Stop d ate: 03/01/19 9:00:00 CDT, 1.51, m2 Start Date: 02/28/19 Stop Date: 02/28/19 Status: Discontinued Results No data available for this section Immunizations No data available for this section Procedures Procedure Date Related Diagnosis Body Site Status Abdominoplasty Completed Breast augmentation Completed section Completed Hysterectomy Completed Salpingo-oophorectomy Completed Social History Social History Type Response Substance Abuse Use: None. Alcohol Current Smoking Status Never smoker; Exposure to T obacco Smoke None; Cigarette Smoking Last 365 Days No; Reg Smoking Cessation Counseli ng No entered on: 02/27/19 Assessment and Plan No data available for this section
--- OUTSIDE RECORDS SUMMARY | 2020-05-07 18:05 | XMS REPORT | Summary of Care ---
Author Author James REGAN Rashida Organization Unknown Address Unknown Phone Unavailable Care Team Providers Care Corrugator Supervisor Name Role Phone Rashida Ramirez Unavailable Unavailable REYES STRATEGIC CONSULTANT, MIMI Unavailable Unavailable REYES CLINICAL SYSTEMS ANALYST-C, MIMI THI Unavailable Unavailable Garland HEWITT, Joshua Unavailable Unavailable MAYTE HEWITT, MARYSE Villasenor Unavailable Unavailable DUANE HEWITT, NOAH GLOVER Unavailable Unavailable PAULETTE PA [place], BINTA BRADLEY Unavailable Unavailab Jignesh HEWTIT [place], KRYS ANTOINE Unavailable Unavailable MACKENZIE HEWITT, LEAH [...] 0 Active Vitamin D (Ergocalciferol) 1.25 MG (03630 UT) Oral Capsule TAKE 1 CAPSULE WEEKLY * Quantity: 12 Refills: 1 REYES MIMI IRELAND * Start : 19-Apr-2019 Active Solifenacin Succinate 10 MG Oral Tablet TAKE 1 TABLET DAILY * Quantity: 30 Refills: 3 REYES STRATEGIC CONSULTANTSHARON LopezUY * Start : 17-May-2019 Active Fluticasone Propionate [...] 6.018) Status: Resolved Procedures Procedure Dates Details [[facility]] URINALYSIS, COMPLETE W/REFLEX TO CULTURE Date: 2019 History of section Completed History of Abdominoplasty Completed History of Breast augmentation Completed History of Salpingo-oophorectomy Complet ed History of Hysterectomy Completed Immunization Name Dates Details Tdap Lot #: [id number] on: 06-Mar-2018 Influenza Comments: refused 07/18/19 Family [...]
--- OUTSIDE RECORDS SUMMARY | 2020-05-07 18:05 | XMS REPORT | Summary of Care ---
Author Author [facility] Organization [facility] Address Unknown Phone Unavailable Encounter JASSON Rose(ALFONSO) [id number] Date(s): 12/18/19 - 12/18/19 [facility] [address] [place] [address]- Discharge Disposition: Home or Self Care Attending Physician: Justyna Fernández MD Referring Physician: Justyna Fernández MD Vital Signs No data available for this section Problem List Condition Effective Dates Status Health [...] Completed Social History Social History Type Response Alcohol Current Substance Abuse Use: None. Smoking Status Never smoker; Exposure to T obacco Smoke None; Cigarette Smoking Last 365 Days No; Reg Smoking Cessation Counseli ng No entered on: 02/27/19 Assessment and Plan No data available for this section
--- OUTSIDE RECORDS SUMMARY | 2020-05-07 18:06 | XMS REPORT | Summary of Care ---
Author Author REGAN REYES APRN Organization Unknown Address Unknown Phone Unavailable Care Team Providers Care Hospital Laboratory Technician Name Role Phone MIMI REYES APRN Unavailable Unavailable ERIC ACCIDENT REPORT CLERK-C, MIMI PAN Unavailable Unavailable Garland HEWITT, Joshua Unavailable Unavailable MAYTE HEWITT, MARYSE Villasenor Unavailable Unavailable BRIEN HEWITT, RONN Unavailable Unavailable DUANE HEWITT, BELEN ZAMORA Unavailable Unavailable DUANE HEWITT, NOAH GLOVER Unavailable Unavailable PAULETTE PA, BINTA BRADLEY Unavailable Unavailable DC HEWITT [place], KRYS ANTOINE Unavailable Unavailable MACKENZIE HEWITT, LEAH Matrinez Unavailable Unavailable VETO RODRIGEZ, MURIEL Quijano Unavailable [...] immunodeficienc y virus) (V73.89, Z11.4) Status: Active Screening for breast cancer (V76.10, Z12 .39) Status: Active Tenosynovitis, de Quervain (727.04, M65. 4) Status: Active Neck pain, bilateral (723.1, M54.2) Status: Active H/O breast implant (V43.82, Z98.82) Status: Active Mastalgia in female (611.71, N64.4) Status: Active Pelvic pain in female (625.9, R10.2) Status: Active UTI symptoms (788.99, R39.9) Status: Active Low back pain (724.2, M54.5) Status: Active Dysuria (788.1, R30.0) Status: Active Snoring (786.09, R06.83) Status: Active Stress incontinence, female (625.6, N39. 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) Status: Active Hyperlipidemia (272.4, E78.5) Status: Active Vitamin D deficiency (268.9, E55.9) Status: Active Urinary incontinence (788.30, R32) Status: Active Urinary frequency (788.41, R35.0) Status: Active Urinary urgency (788.63, R39.15) Status: Active Vestibulitis, vulvar (625.71, N94.810) Status: Active Nocturia (788.43, R35.1) Status: Active Interstitial cystitis (595.1, N30.10) Status: Active Pelvic floor dysfunction (618.83, M62.89 ) Status: Active Moderate major depression (296.22, F32.1 ) Status: Active Medications Name Dates Details Sertraline HCl - 50 MG Oral Tablet TAKE 1 TABLET DAILY. Quantity: 90 REYES MIMI IRELAND * Start : 09-Mar-2017 Active Aspirin 81 MG TABS * Refills: 0 Active Vitamin D (Ergocalciferol) 1.25 MG (92344 UT) Oral Capsule TAKE 1 CAPSULE WEEKLY * Quantity: 12 Refills: 1 REYES MIMI IRELAND * Start : 19-Apr-2019 Active Fluticasone Propionate 50 MCG/ACT Nasal Suspension USE 1 SPRAY IN EACH NOSTRIL TWICE DAILY. * Quantity: 1 Refills: 1 REYES SHU, MIMI * Start : 18-Jul-2019 Active 15.8 ML Bottle Solifenacin Succinate 5 MG Oral Tablet TAKE 1 TABLET DAILY * Quantity: 30 Refills: 5 REYES MIMI IRELAND Active Allergies and Adverse Reactions Name Dates Details Penicillins (Allergy) Reaction: Vomiting Status: Active Past Medical History Name Dates Details History of depression (V11.8, Z86.59) Status: Resolved History of endometriosis (V13.29, Z87.42 ) Status: Resolved History of pulmonary embolism (V12.55, Z 86.711) Status: Resolved History of uterine leiomyoma (V13.29, Z8 6.018) Status: Resolved Procedures Procedure Dates Details [QL] TSH, 3RD GENERATION W/REFLEX TO FT4 Date: 27-Mar-2020 [QL] CBC (INCLUDES DIFF/PLT) Date: 27-Mar-2020 [QL] CMP W/EGFR Date: 27-Mar-2020 [Q] LIPID PANEL WITH REFLEX TO DIRECT LDL Date: 27-Mar-2020 [QL] VITAMIN D, 25-HYDROXY, LC/MS/MS Date: 27-Mar-2020 History of section Completed History of Abdominoplasty Completed History of Breast augmentation Completed History of Salpingo-oophorectomy Complet ed History of Hysterectomy Completed Immunization Name Dates Details Tdap Lot #: [id number] on: 06-Mar-2018 Influenza Comments: refused 07/18/19 Family History Name Dates Details Family history of High cholesterol (272. 0, E78.00) Status: Active Family history of hypertension (V17.49, Z82.49) Status: Active Name Dates Details Family history of diabetes mellitus (V18 .0, Z83.3) Status: Active Social History Name Dates Details - Status: Name Dates Details Never smoked tobacco (finding) Vital Signs Date Test Result Details [id number] Systolic blood pressure 109 mm[Hg] Status: Comments : Location: LUE; Position: Sitting Diastolic blood pressure 74 mm[Hg] Status: Comment s: Location: LUE; Position: Sitting Body height 59 in Status: Weight 116 lb Status: Body mass index (BMI) [Ratio] 23.43 kg/m2 Status: Body surface area Derived from formula 1.46 m2 S tatus: Body temperature 97.2 f Status: Comments: Me thod: Temporal Heart Rate 85 /min Status: :45 Physical Findings 2 Status: Comments: PH Q-9 Adult Depression Screening :29 Systolic blood pressure 102 mm[Hg] Status: Comments : Location: LUE; Position: Sitting Diastolic blood pressure 69 mm[Hg] Status: Comment s: Location: LUE; Position: Sitting Body height 59 in Status: Weight 113.4 lb Status: Body mass index (BMI) [Ratio] 22.9 kg/m2 Status: Body surface area Derived from formula 1.45 m2 S tatus: Body temperature 98.6 f Status: Comments: Me thod: Temporal Heart Rate 77 /min Status: Respiratory rate 16 /min Status: Physical Findings 0 Status: Comments: Al cohol Screen - How many times in the past yr have you had 5 (for M) or 4 (for F) or 4 (for all > 65yrs) or more drinks in a day? Results Date Description Value Details : [O] Urine Dipstick (In Office) Glucose neg (Normal) LEUKOCYTES neg (Normal) NITRITE neg (Normal) UROBILINOGEN normal (Normal) PROTEIN trace (Abnormal) pH 6 (Normal) URINE BLOOD trace (Abnormal) SPECIFIC GRAVITY 1.015 (Normal) KETONES neg (Normal) BILIRUBIN neg (Normal) COLOR URINE YELLOW (Normal) APPEARANCE CLEAR (Normal) :00 [QL] URINALYSIS, COMPLETE COLOR YELLOW (Normal) Range: YELLOW APPEARANCE CLEAR (Normal) Range: CLEAR SPECIFIC GRAVITY 1.022 (Normal) Range: 1.001-1 .035 PH 6.5 (Normal) Range: 5.0-8.0 GLUCOSE NEGATIVE (Normal) Range: NEGAT SHAUN BILIRUBIN NEGATIVE (Normal) Range: NEGAT SHAUN KETONES NEGATIVE (Normal) Range: NEGAT SHAUN OCCULT BLOOD NEGATIVE (Normal) Range: NEGAT SHAUN PROTEIN NEGATIVE (Normal) Range: NEGAT SHAUN NITRITE NEGATIVE (Normal) Range: NEGAT SHAUN LEUKOCYTE ESTERASE NEGATIVE (Normal) Range: NE GATIVE WBC NONE SEEN {/HPF} (Normal) Range : < OR = 5 RBC NONE SEEN {/HPF} (Normal) Range : < OR = 2 SQUAMOUS EPITHELIAL CELLS NONE SEEN {/HPF} (Nor mal) Range: < OR = 5 BACTERIA NONE SEEN {/HPF} (Normal) Range : NONE SEEN HYALINE CAST NONE SEEN {/LPF} (Normal) Range : NONE SEEN [id number] [QL] CULTURE, URINE, ROUTINE CULTURE Comments: MICHELLE Quijano, URINE, ROUTINE Micro Number: [id number] Test Status: Final Specimen Source: URINE Specimen Quality: Adequate Result: No Growth Plan of Care Name Dates Details Planned Observations Planned Goals not documented Planned Encounters Appointment; MURIEL LAWS D.O. On: 30-Apr-2020 15:00 Interventions Provided Medication Changes* Sertraline HCl - 50 MG Oral Tablet - Renew * Solifenacin Succinate 5 MG Oral Tablet - Renew Labs/Procedures/Imaging* [QL] CBC (INCLUDES DIFF/PLT); To Be Done: 27 Mar 2020 * [QL] CMP W/EGFR; To Be Done: 27 Mar 2020 * [QL] TSH, 3RD GENERATION W/REFLEX TO FT4; To Be Done: 27 Mar 2020 * [QL] VITAMIN D, 25-HYDROXY, LC/MS/MS; To Be Done: 27 Mar 2020 Plan* Urinary frequency (788.41) (R35.0) * Check fasting labs. * Meds refilled. * Follow up with urogynecology. * Follow up in 6 months. Instructions Name Dates Details Instructions not documented Encounters Appointment; MIMI REYES APRN Encounter Diagnosis: Problem [...] not documented On: 21-Feb-2019 15:30 Appointment; JOSHUA GARNDA M.D. Encounter Diagnosis: Problem not documented On: [...] Diagnosis: Problem not documented On: 23-Nov-2019 10:45 Appointment; MIMI REYES APRN Encounter Diagnosis: Problem not documented On: 27-Mar-2020 14:15
--- OUTSIDE RECORDS SUMMARY | 2020-05-07 18:06 | XMS REPORT | Summary of Care ---
Author Author REGAN Vinson R.N. Organization Unknown Address [facility] Phone Unavailable Care Team Providers Care Pipe Organ Installer Name Role Phone Jess Vinson R.N. Unavailable Unavailable REYES POLE SHAVER HELPER, MIMI Unavailable Unavailable DOUG D.OPo, MURIEL Unavailable Unavailable REYES CHIPPER FEEDER-C, MIMI THI Unavailable Unavailable Garland HEWITT, Joshua Unavailable Unavailable MAYTE HEWITT, MARYSE Villasenor Unavailable Unavailable BRIEN EHWITT, RONN Unavailable Unavailable DUANE HEWITT, BELEN ZAMORA Unavailable Unavailable DUANE HEWITT, NOAH GLOVER Unavailable Unavailable PAULETTE PA, BINTA BRADLEY Unavailable Unavailable DC HEWITT [place], KRYS ANTOINE Unavailable Unavailable MACKENZIE HEWITT, LEAH Martinez Unavailable Unavailable VETO RODRIGEZ, MURIEL E Unavailable Unavailable AMBER HEWITT, SOLMORELIA Unavailable Unavailable Unavailable Unavailable Functional Status Name [...] 0 Active Vitamin D (Ergocalciferol) 1.25 MG (60458 UT) Oral Capsule TAKE 1 CAPSULE WEEKLY * Quantity: 12 Refills: 1 MIMI REYES APRN * Start : 19-Apr-2019 Active Fluticasone Propionate 50 MCG/ACT Nasal Suspension USE 1 SPRAY IN EACH NOSTRIL TWICE DAILY. * Quantity: 1 Refills: 1 MIMI REYES APRN * Start : 18-Jul-2019 Active 15.8 ML Bottle Solifenacin Succinate 5 MG Oral Tablet TAKE 1 TABLET DAILY * Quantity: 30 Refills: 5 REYES MIMI IRELAND Active Clotrimazole-Betamethasone 1-0.05 % External Cream APPLY AND RUB IN A THIN FILM TO AFFECTED AREAS TWICE DAILY.(AM AND PM). * Quantity: 1 Refills: 0 DOUGHER D.O., MURIEL * Start : 03-Apr-2020 Active 45 GM Tube Uribel 118 MG Oral Capsule TAKE 1 CAPSULE 3 TIMES DAILY * Quantity: 20 Refills: 0 DOUGHER D.O., MURIEL * Start : 07-Apr-2020 Active Pyridium 100 MG Oral Tablet Take 1 tablet two -three times a day as needed for urinary discomfort * Quantity: 10 Refills: 0 DOUGHER D.O., MUIREL * Start : 08-Apr-2020 Active Allergies and Adverse Reactions Name Dates [...] Immunization Name Dates Details Tdap Lot #: [id number] on: 06-Mar-2018 Influenza Comments: refused 07/18/19 Family History Name Dates Details Family history of High cholesterol (272. 0, E78.00) Status: Active Family history of hypertension (V17.49, Z82.49) Status: Active Name Dates Details Family history of diabetes mellitus (V18 .0, Z83.3) Status: Active Social History Name Dates Details - Status: Name Dates Details Never smoked tobacco (finding) Vital Signs Date Test Result Details :40 Systolic blood pressure 109 mm[Hg] Status: Comments [...] a day? Results Date Description Value Details :00 [O] Urine Dipstick (In Office) Glucose neg [...] SEEN {/LPF} (Normal) Range : NONE SEEN [id number]:00 [QL] CULTURE, URINE, ROUTINE CULTURE Comments: CULTUR E, URINE, ROUTINE Micro Number: [id number] Test Status: Final Specimen Source: URINE Specimen Quality: Adequate Result: No Growth Plan of Care Name Dates Details Planned Observations Planned Goals not documented Planned Encounters Appointment; MURIEL LAWS D.O. On: 30-Apr-2020 15:00 Interventions Provided Medication Changes* Pyridium 100 MG Oral Tablet - Start Instructions Name Dates Details Instructions not documented [...] Diagnosis: Problem not documented On: 27-Mar-2020 14:15 Appointment; MURIEL LAWS D.O. Encounter Diagnosis: Problem not documented On: 02-Apr-2020 10:00
--- OUTSIDE RECORDS SUMMARY | 2020-05-07 18:06 | XMS REPORT | Summary of Care ---
Author Author REGAN Bradshaw R.N. Organization Unknown Address Unknown Phone Unavailable Care Team Providers Care Psychiatric Social Worker Supervisor Name Role Phone REYES SET BUILDER, MIMI Unavailable Unavailable REYES REFUELING RAMP SUPERVISOR-C, MIMI THI Unavailable Unavailable Garland HEWITT, Joshua Unavailable Unavailable MAYTE HEWITT, MARYSE Villasenor Unavailable Unavailable BRIEN HEWITT, RONN Unavailable Unavailable DUANE HEWITT, BELEN ZAMORA Unavailable Unavailable DUANE HEWITT, NOAH GLOVER Unavailable Unavailable PAULETTE JAXON, BINTA BRADLEY Unavailable Unavailable DC HEWITT [place], KRYS ANTOINE Unavailable Unavailable MACKENZIE HEWITT, LEAH [...] major depression (296.22, F32.1 ) Status: Active H/O breast implant (V43.82, Z98.82) Status: Active Mastalgia in female (611.71, N64.4) Status: Active Pelvic pain in female (625.9, R10.2) Status: Active UTI symptoms (788.99, R39.9) Status: Active Low back pain (724.2, M54.5) Status: Active Dysuria (788.1, R30.0) Status: Active Snoring (786.09, R06.83) Status: Active Urinary frequency (788.41, R35.0) Status: Active Stress incontinence, female (625.6, N39. 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 Quantity: 90 MIMI REYES APRN * Start : 09-Mar-2017 Active Aspirin 81 MG TABS * Refills: 0 Active Vitamin D (Ergocalciferol) 1.25 MG (37632 UT) Oral Capsule TAKE 1 CAPSULE WEEKLY [...] [QL] VITAMIN D, 25-HYDROXY, LC/MS/MS Date: 27-Mar-2020 [QL] URINALYSIS, COMPLETE Date: 27-Mar-2020 [QL] CULTURE, URINE, ROUTINE Date: 27-Mar-2020 History of section Completed History of Abdominoplasty Completed History of Breast augmentation Completed History of Salpingo-oophorectomy Complet ed History of Hysterectomy Completed Immunization Name Dates Details Tdap Lot #: [id number] on: 06-Mar-2018 Influenza Comments: refused 07/18/19 Family History Name Dates Details Family history of High cholesterol (272. 0, E78.00) Status: Active Family history of hypertension (V17.49, Z82.49) Status: Active Name Dates Details Family history of diabetes mellitus (V18 .0, Z83.3) Status: Active Social History Name Dates Details - Status: Name Dates Details Never smoked tobacco (finding) Vital Signs Date Test Result Details :45 Physical Findings 2 Status: Comments: Q-9 Adult Depression Screening [id number] Systolic blood pressure 102 mm[Hg] Status: Comments [...] a day? Results Date Description Value Details Results not documented Plan of Care Name Dates Details Planned Observations Planned Goals not documented Interventions Provided Medication Changes* Sertraline HCl - 50 MG Oral Tablet - Renew * Solifenacin Succinate 5 MG Oral Tablet - Renew Labs/Procedures/Imaging* [Q] LIPID PANEL WITH REFLEX TO DIRECT LDL; To Be Done: 27 Mar 2020 * [QL] CBC (INCLUDES DIFF/PLT); To Be Done: 27 Mar 2020 * [QL] CMP W/EGFR; To Be Done: 27 Mar 2020 * [QL] CULTURE, URINE, ROUTINE; To Be Done: 27 Mar 2020 * [QL] TSH, 3RD GENERATION W/REFLEX TO FT4; To Be Done: 27 Mar 2020 * [QL] URINALYSIS, COMPLETE; To Be Done: 27 Mar 2020 * [QL] VITAMIN D, 25-HYDROXY, LC/MS/MS; To Be Done: 27 Mar 2020 Instructions Name Dates Details Instructions not documented [...]
--- OUTSIDE RECORDS SUMMARY | 2020-05-07 18:06 | XMS REPORT | Summary of Care ---
Author Author REGAN LAWS D.O. Unknown Address Unknown Phone Unavailable Care Team Providers Care Office Machine Service Supervisor Name Role Phone REYES SIGNALLING AND COMMUNICATIONS ENGINEER, MIMI Unavailable Unavailable VETO Alston, MURIEL Unavailable Unavailable REYES MACHINE CAGE MAKER-C, MIMI THI Unavailable Unavailable Garland HEWITT, Joshua Unavailable Unavailable MAYTE HEWITT, MARYSE Villasenor Unavailable Unavailable BRIEN HEWITT, RONN Unavailable Unavailable DUANE HEWITT, BELEN ZAMORA Unavailable Unavailable DUANE HEWITT, NOAH GLOVER Unavailable Unavailable PAULETTE JAXON, BINTA BRADLEY Unavailable Unavailable DC HEWITT [place], KRYS ANTOINE Unavailable Unavailable MACKENZIE HEWITT, LEAH Martinez Unavailable Unavailable MURIEL LAWS DO Unavailable Unavailable AMBER HEWITT, MILDRED Unavailable Unavailable [...] 0 Active Vitamin D (Ergocalciferol) 1.25 MG (93585 UT) Oral Capsule TAKE 1 CAPSULE WEEKLY [...] TABLET DAILY * Quantity: 30 Refills: 5 MIMI REYES APRN Active Clotrimazole-Betamethasone 1-0.05 % External Cream APPLY AND RUB IN A THIN FILM TO AFFECTED AREAS TWICE DAILY.(AM AND PM). * Quantity: 1 Refills: 0 DOUGHER D.O., MURIEL * Start : 03-Apr-2020 Active 45 GM Tube Uribel 118 MG Oral Capsule TAKE 1 CAPSULE 3 TIMES DAILY * Quantity: 20 Refills: 0 DOUGHER D.O., MURIEL * Start : 07-Apr-2020 Active Allergies and Adverse Reactions Name Dates [...] Immunization Name Dates Details Tdap Lot #: [id number] on: 06-Mar-2018 Influenza Comments: refused 07/18/19 Family [...] SEEN {/LPF} (Normal) Range : NONE SEEN [id number]-[id number]:00 [QL] CULTURE, URINE, ROUTINE CULTURE Comments: CULTUR E, URINE, ROUTINE Micro Number: [id number] Test Status: Final Specimen Source: URINE Specimen Quality: Adequate Result: No Growth Plan of Care Name Dates Details Planned Observations Planned Goals not documented Planned Encounters Appointment; MURIEL LAWS D.O. On: 30-Apr-2020 15:00 Interventions Provided Medication Changes* Clotrimazole-Betamethasone 1-0.05 % External Cream - Start * Uribel 118 MG Oral Capsule - Start Discussion/Summary* 1. interstitial cystitis/ dyspareunia/ vestibulitis/ UU/ UF * - discussed diagnosis and condition, handouts given * - recommend follow IC diet, already knows citris and tomatoes are bothersome * - recommend elavil, zantac, prelief * - will trial steroid ointment for vestibulitis * - reports vesicare caused severe dry mouth and dry eye, will trial myrbetric * 2. pelvic pain * - discussed PFPT and recommend * - also discussed role of endomeriosis and if symptoms do not improve may want to consider Orlissa vs depo lupron * Total visit time of 45 minutes with >50% of the time spent face to face counseling and coordinating plan of care with the patient. * RTC in 1 mo * . Instructions Name Dates Details Instructions not documented [...]
--- OUTSIDE RECORDS SUMMARY | 2020-05-07 18:06 | XMS REPORT | Summary of Care ---
Author Author [facility] Address [address] [place] [address] Phone Unavailable Care Team Providers Care Ribbon Sweatband Operator Name Role Phone REYES FOOD SERVICE KITCHEN SUPERVISOR, MIMI Unavailable Unavailable REYES GEOLOGICAL DRAFTER-C, MIMI THI Unavailable Unavailable Garland HEWITT, Joshua Unavailable Unavailable MAYTE HEWITT, MARYSE Villasenor Unavailable Unavailable BRIEN HEWITT, RONN Unavailable Unavailable DUANE HEWITT, NOAH GLOVER Unavailable Unavailable PAULETTE COATES [place], BINTA BRADLEY Unavailable Unavailab Jignesh HEWITT [place], KRYS ANTOINE Unavailable Unavailable MACKENZIE HEWITT, LEAH [...] 09-Mar-2017 Active Vitamin D (Ergocalciferol) 1.25 MG (97493 UT) Oral Capsule TAKE 1 CAPSULE WEEKLY [...] one tablet daily * Refills: 0 Active Aspirin 81 MG TABS * Refills: [...] Details Polysomnography with pH probe Date: 23-Nov-2019 [[facility]] URINALYSIS, COMPLETE W/REFLEX TO CULTURE Date: 2019 [[facility]] URINALYSIS, COMPLETE W/REFLEX TO CULTURE Date: 020 History of section Completed History of Abdominoplasty Completed History of Breast augmentation Completed History of Salpingo-oophorectomy Complet ed History of Hysterectomy Completed Immunization Name Dates Details Tdap Lot #: [id number] on: 06-Mar-2018 Influenza Comments: refused 07/18/19 Family History Name Dates Details Family history of High cholesterol (272. 0, E78.00) Status: Active Family history of hypertension (V17.49, Z82.49) Status: Active Name Dates Details Family history of diabetes mellitus (V18 .0, Z83.3) Status: Active Social History Name Dates Details - Status: Name Dates Details Never smoked tobacco (finding) Vital Signs Date Test Result Details :15 Systolic blood pressure 114 mm[Hg] Status: Comments [...] /min Status: Results Date Description Value Details :47 [O] Urine Dipstick (In Office) Glucose NEGATIVE (Normal) LEUKOCYTES NEGATIVE (Normal) NITRITE NEGATIVE (Normal) UROBILINOGEN NEGATIVE (Normal) PROTEIN NEGATIVE (Normal) pH 5 (Normal) URINE BLOOD NEGATIVE (Normal) SPECIFIC GRAVITY 1.010 (Normal) KETONES NEGATIVE (Normal) BILIRUBIN NEGATIVE (Normal) COLOR URINE YELLOW (Normal) APPEARANCE CLEAR (Normal) Plan of Care Name [...]
--- OUTSIDE RECORDS SUMMARY | 2020-05-07 18:06 | XMS REPORT | Summary of Care ---
Author Author REGAN REYES APRN Organization Unknown Address Unknown Phone Unavailable Care Team Providers Care Chaplain Resident Name Role Phone MIMI REYES APRN Unavailable Unavailable ERIC FREIGHT RATE CLERK-C, MIMI PAN Unavailable Unavailable Garland HEWITT, Joshua Unavailable Unavailable MAYTE HEWITT, MARYSE Villasenor Unavailable Unavailable BRIEN HEWITT, RONN Unavailable Unavailable DUANE HEWITT, BELEN ZAMORA Unavailable Unavailable DUANE HEWITT, NOAH GLOVER Unavailable Unavailable PAULETTE PA, BINTA BRADLEY Unavailable Unavailable DC HEWITT [place], KRYS ANTOINE Unavailable Unavailable MACKENZIE HEWITT, LEAH [...] Aspirin 81 MG TABS * Refills: 0 M.D. Active Vitamin D (Ergocalciferol) 1.25 MG (17477 UT) Oral Capsule TAKE 1 CAPSULE WEEKLY [...] 30 Refills: 5 MIMI REYES APRN Active Allergies and Adverse Reactions Name Dates [...] Immunization Name Dates Details Tdap Lot #: [id number] on: 06-Mar-2018 Influenza Comments: refused 07/18/19 Family [...] Details :45 Physical Findings 2 Status: Comments: PH [...] SEEN {/LPF} (Normal) Range : NONE SEEN :00 [QL] CULTURE, URINE, ROUTINE CULTURE Comments: CULTUR E, URINE, ROUTINE Micro Number: [id number] Test Status: Final Specimen Source: URINE Specimen Quality: Adequate Result: No Growth Plan of Care Name Dates Details Planned Observations Planned Goals not documented Planned Encounters Appointment; MURIEL LAWS D.O. On: 02-Apr-2020 10:00 Instructions Name Dates Details Instructions not documented [...]
--- OUTSIDE RECORDS SUMMARY | 2020-05-07 18:06 | XMS REPORT | Summary of Care ---
Author Author REGAN Huber M.A. [facility] Organization Unknown Address [facility] Phone Unavailable Care Team Providers Care Tar Distributor Operator Name Role Phone [facility] Evelin Unavailable Unavailable REYES CHILD CARE NURSE, MIMI Unavailable Unavailable REYES MARINE TECHNICIAN-C, MIMI THI Unavailable Unavailable Garland HEWITT, Joshua Unavailable Unavailable MAYTE HEWITT, MARYSE Villasenor Unavailable Unavailable BRIEN HEWITT, RONN Unavailable Unavailable DUANE HEWITT, BELEN ZAMORA Unavailable Unavailable DUANE HEWITT, NOAH GLOVER Unavailable Unavailable PAULETTE PA, BINTA BRADLEY Unavailable Unavailable DC HEWITT [place], KRYS ANTOINE Unavailable Unavailable MACKENZIE HEWITT, LEAH Martinez Unavailable Unavailable VETO RODRIGEZ, MURIEL Quijano Unavailable Unavailable AMBER HEWITT, SOLMORELIA Unavailable Unavailable [...] 0 Active Vitamin D (Ergocalciferol) 1.25 MG (46160 UT) Oral Capsule TAKE 1 CAPSULE WEEKLY [...] DAILY * Quantity: 30 Refills: 5 REYES SHARON IRELANDUY Active Allergies and Adverse Reactions Name Dates [...] Immunization Name Dates Details Tdap Lot #: [id number] on: 06-Mar-2018 Influenza Comments: refused 07/18/19 Family [...] 2 Status: Comments: Q-9 Adult Depression Screening :29 Systolic blood [...] :00 [QL] CULTURE, URINE, ROUTINE CULTURE Comments: MICHELLE E, URINE, ROUTINE Micro Number: [id number] Test Status: Final Specimen Source: URINE Specimen Quality: Adequate Result: No Growth Plan of Care Name Dates Details Planned Observations Planned Goals not documented Interventions Provided Follow-ups/Referrals* Urogynecologist; To Be Done: 31 Mar 2020 Instructions Name Dates Details Instructions not documented Encounters Appointment; MIMI REYES APRN Encounter Diagnosis: Problem not documented On: 02-May-2018 16:15 Appointment; BINTA CALWDELL P.A. Encounter Diagnosis: Problem not documented On: [...]
--- OUTSIDE RECORDS SUMMARY | 2020-05-07 18:06 | XMS REPORT | Summary of Care ---
Author Author REGAN REYES APRN Organization Unknown Address Unknown Phone Unavailable Care Team Providers Care Mexican Food Maker Name Role Phone MIMI REYES APRN Unavailable Unavailable ERIC SEARCH COORDINATOR-C, MIMI PAN Unavailable Unavailable Garland HEWITT, Joshua Unavailable Unavailable MAYTE HEWITT, MARYSE Villasenor Unavailable Unavailable BRIEN HEWITT, RONN Unavailable Unavailable DUANE HEWITT, BELEN ZAMORA Unavailable Unavailable DUANE HEWITT, NOAH GLOVER Unavailable Unavailable PAULETTE PA, BINTA BRADLEY Unavailable Unavailable DC HEWITT [place], KRYS ANTOINE Unavailable Unavailable MACKENZIE HEWITT, LEAH [...] M.D. Active Vitamin D (Ergocalciferol) 1.25 MG (63145 UT) Oral Capsule TAKE 1 CAPSULE WEEKLY [...] Immunization Name Dates Details Tdap Lot #: [id number] on: 06-Mar-2018 Influenza Comments: refused 07/18/19 Family [...] Comments: CULTUR E, URINE, ROUTINE Micro Number: [id number] Test Status: Final Specimen Source: URINE Specimen Quality: Adequate Result: No Growth Plan of Care Name Dates Details Planned Observations Planned Goals not documented Interventions Provided Discussion/Summary* Normal urine test. No infection. Continue Vesicare. Instructions Name Dates Details Instructions not documented [...]
--- OUTSIDE RECORDS SUMMARY | 2020-05-07 18:06 | XMS REPORT | Summary of Care ---
Author Author REGAN Patel M.A. [facility] Unknown Address Unknown Phone Unavailable Care Team Providers Care Snowboarding Instructor Name Role Phone REYES TIME ANALYSIS CLERK, MIMI Unavailable Unavailable VETO D.OPo, MURIEL Unavailable Unavailable REYES ERP ANALYST-C, MIMI THI Unavailable Unavailable Garland HEWITT, Joshua Unavailable Unavailable MAYTE HEWITT, MARYSE Villasenor Unavailable Unavailable BRIEN HEWITT, RONN Unavailable Unavailable DUANE HEWITT, BELEN ZAMORA Unavailable Unavailable DUANE HEWITT, NOAH GLOVER Unavailable Unavailable PAULETTE JAXON, BINTA BRADLEY Unavailable Unavailable DC HEWITT [place], KRYS ANTOINE Unavailable Unavailable MACKENZIE HEWITT, LEAH Martinez Unavailable Unavailable VETO RODRIGEZ, MURIEL E Unavailable Unavailable AMBER HEWITT, MILDRED Unavailable Unavailable [...] floor dysfunction (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 Quantity: 90 MIMI REYES APRN * Start : 09-Mar-2017 Active Aspirin 81 MG TABS * Refills: 0 Active Vitamin D (Ergocalciferol) 1.25 MG (10355 UT) Oral Capsule TAKE 1 CAPSULE WEEKLY [...] Immunization Name Dates Details Tdap Lot #: [id number] on: 06-Mar-2018 Influenza Comments: refused 07/18/19 Family History Name Dates Details Family history of High cholesterol (272. 0, E78.00) Status: Active Family history of hypertension (V17.49, Z82.49) Status: Active Name Dates Details Family history of diabetes mellitus (V18 .0, Z83.3) Status: Active Social History Name Dates Details - Status: Name Dates Details Never smoked tobacco (finding) Vital Signs Date Test Result Details [id number] Systolic blood pressure 109 mm[Hg] Status: Comments [...] SEEN {/LPF} (Normal) Range : NONE SEEN 39-Ofs-48723:00 [QL] CULTURE, URINE, ROUTINE CULTURE Comments: MICHELLE Quijano URINE, ROUTINE Micro Number: [id number] Test Status: Final Specimen Source: URINE Specimen Quality: Adequate Result: No Growth Plan of Care Name Dates Details Planned Observations Planned Goals not documented Planned Encounters Appointment; MURIEL LAWS D.O. On: 30-Apr-2020 15:00 Interventions Provided Plan* -Start Vesicare 5mg to be titrated to 10mg po qd. Pt counseled on ADRs of medication. Sample provided * -F/u TVUS * -Recounseled on IC/OAB diet, and bladder irritants. List reviewed again with patient * -Estrace not covered by insurance, premarin cream sent today, if not covered will proceed with compounded version. * -RTC prn Instructions Name Dates Details Instructions not documented [...]
--- OUTSIDE RECORDS SUMMARY | 2020-05-07 18:06 | XMS REPORT | Summary of Care ---
Author Author REGAN Mesa Nga Organization Unknown Address Unknown Phone Unavailable Care Team Providers Care Entry Level Electrical Engineer Name Role Phone Nga Mesa Unavailable Unavailable REYES TECHNICAL APPLICATIONS SPECIALIST, MIMI Unavailable Unavailable REYES DIRECTOR CENTER-C, MIMI THI Unavailable Unavailable Garland HEWITT, Joshua Unavailable Unavailable MAYTE HEWITT, MARYSE Villasenor Unavailable Unavailable BRIEN HEWITT, RONN Unavailable Unavailable DUANE HEWITT, BELEN ZAMORA Unavailable Unavailable DUANE HEWITT, NOAH GLOVER Unavailable Unavailable PAULETTE PA, BINTA BRADLEY Unavailable Unavailable DC HEWITT [place], KRYS ANTOINE Unavailable Unavailable MACKENZIE HEWITT, [...] 0 Active Vitamin D (Ergocalciferol) 1.25 MG (04760 UT) Oral Capsule TAKE 1 CAPSULE WEEKLY [...] Immunization Name Dates Details Tdap Lot #: [id number] on: 06-Mar-2018 Influenza Comments: refused 07/18/19 Family [...] :00 [QL] CULTURE, URINE, ROUTINE CULTURE Comments: AMANDAUR E, URINE, ROUTINE Micro Number: [id number] Test Status: Final Specimen Source: URINE Specimen Quality: Adequate Result: No Growth Plan of Care Name Dates Details Planned Observations Planned Goals not documented Planned Encounters Appointment; MURIEL LAWS D.O. On: 02-Apr-2020 10:00 Interventions Provided Follow-ups/Referrals* Urogynecologist; To Be Done: [...]
--- OUTSIDE RECORDS SUMMARY | 2020-05-07 18:06 | XMS REPORT | Summary of Care ---
Author Author REGAN Knight M.A. [facility] Unknown Address Unknown Phone Unavailable Care Team Providers Care Office Administration Instructor Name Role Phone MACKENZIE Hyde, LEAH Unavailable Unavailable REYES PAPER GUILLOTINE OPERATOR, MIMI Unavailable Unavailable REYES ETHICAL HACKER-C, MIMI THI Unavailable Unavailable Garland HEWITT, Joshua Unavailable Unavailable MAYTE HEWITT, MARYSE Villasenor Unavailable Unavailable BRIEN HEWITT, RONN Unavailable Unavailable DUANE HEWITT, NOAH GLOVER Unavailable Unavailable PAULETTE COATES [place], BINTA BRADLEY Unavailable Unavailab Jignesh HEWITT [place], KRYS ANTOINE Unavailable Unavailable MACKENZIE HEWITT, LEAH [...] 0 Active Vitamin D (Ergocalciferol) 1.25 MG (78232 UT) Oral Capsule TAKE 1 CAPSULE WEEKLY [...] Details Polysomnography with pH probe Date: 23-Nov-2019 [[facility]] URINALYSIS, COMPLETE W/REFLEX TO CULTURE Date: 2019 [QL] URINALYSIS, COMPLETE W/REFLEX TO CULTURE Date: 020 History of section Completed History of Abdominoplasty Completed History of Breast augmentation Completed History of Salpingo-oophorectomy Complet ed History of Hysterectomy Completed Immunization Name Dates Details Tdap Lot #: [id number] on: 06-Mar-2018 Influenza Comments: refused 07/18/19 Family [...] Planned Goals not documented Interventions Provided Labs/Procedures/Imaging* [[facility]] URINALYSIS, COMPLETE W/REFLEX TO CULTURE; To Be Done: 23 Nov 2019 * Polysomnography with pH probe; To Be Done: 23 Nov 2019 * [O] Urine Dipstick (In Office); Done: 23 Nov 2019 Instructions Name Dates Details Instructions not documented [...] Problem not documented On: 06-Nov-2019 17:45 Appointment; LEHA MANN M.D. Encounter Diagnosis: Problem not documented On: 23-Nov-2019 10:45
--- OUTSIDE RECORDS SUMMARY | 2020-05-07 18:06 | XMS REPORT | Summary of Care ---
Author Author REGAN LAWS D.O. Unknown Address Unknown Phone Unavailable Care Team Providers Care Brush Filler Hand Name Role Phone REYES FARM SERVICE ADVISER, MIMI Unavailable Unavailable VETO Alston, MURIEL Unavailable Unavailable REYES WEBBING SEAMER POUND NET-C, MIMI THI Unavailable Unavailable Garland HEWITT, Joshua Unavailable Unavailable MAYTE HEWITT, MARYSE Villasenor Unavailable Unavailable BRIEN HEWITT, RONN Unavailable Unavailable DUANE HEWITT, BELEN ZAMORA Unavailable Unavailable DUANE HEWITT, NOAH GLOVER Unavailable Unavailable PAULETTE JAXON, BINTA BRADLEY Unavailable Unavailable DC HEWITT [place], KRYS ANTOINE Unavailable Unavailable MACKENZIE HEWITT, LEAH Martinez Unavailable Unavailable MURIEL LAWS DO Unavailable Unavailable AMBER HEWITT, MILDRED Unavailable Unavailable Unavailable Unavailable Functional Status Name Dates Details Functional status health issues are not documented Status: Name Dates Details Cognitive status health issues are not d ocumented Status: Problems Name Dates Details Colon cancer screening (V76.51, Z12.11) Status: Active Atrophic vaginitis (627.3, N95.2) Status: Active Sensation of pressure in bladder area (5 96.89, R39.89) Status: Active Dysuria (788.1, R30.0) Status: Active Snoring (786.09, R06.83) Status: Active Screening for breast cancer (V76.10, Z12 .39) Status: Active Elevated testosterone level in female (2 59.9, R79.89) Status: Active Low back pain (724.2, M54.5) Status: Active H/O breast implant (V43.82, Z98.82) Status: Active UTI symptoms (788.99, R39.9) Status: Active Tenosynovitis, de Quervain (727.04, M65. 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 3) Status: Active Screening for HIV (human immunodeficienc y virus) (V73.89, Z11.4) Status: Active Need for Tdap vaccination (V06.1, Z23) Status: Active Hypoglycemia (251.2, E16.2) Status: Active Cervical cancer screening (V76.2, Z12.4) Status: Active Aspirin long-term use (V58.66, Z79.82) Status: Active Encounter for monitoring testosterone re placement therapy (V58.83, Z51.81) Status: Active Abnormal EKG (794.31, R94.31) Status: Active Abdominal tenderness, RLQ (right lower q uadrant) (789.63, R10.813) Status: Active Urinary incontinence (788.30, R32) Status: Active Urinary frequency (788.41, R35.0) Status: Active Pelvic floor dysfunction (618.83, M62.89 ) Status: Active Urinary urgency (788.63, R39.15) Status: Active Vestibulitis, vulvar (625.71, N94.810) Status: Active Interstitial cystitis (595.1, N30.10) Status: Active Nocturia (788.43, R35.1) Status: Active Medications Name Dates Details Sertraline HCl - 50 MG Oral Tablet TAKE 1 TABLET DAILY. Quantity: 90 MIMI REYES APRN * Start : 09-Mar-2017 Active Aspirin 81 MG TABS * Refills: 0 Active Vitamin D (Ergocalciferol) 1.25 MG (99249 UT) Oral Capsule TAKE 1 CAPSULE WEEKLY [...] Start : 03-Apr-2020 Active 45 GM Tube Allergies and Adverse Reactions Name Dates Details [...] Immunization Name Dates Details Tdap Lot #: [id number] on: 06-Mar-2018 Influenza Comments: refused 07/18/19 Family History Name Dates Details Family history of High cholesterol (272. 0, E78.00) Status: Active Family history of hypertension (V17.49, Z82.49) Status: Active Name Dates Details Family history of diabetes mellitus (V18 .0, Z83.3) Status: Active Social History Name Dates Details - Status: Name Dates Details Never smoked tobacco (finding) Vital Signs Date Test Result Details [id number] Systolic blood pressure 109 mm[Hg] Status: Comments : [place] [facility] [place] S[place] Diastolic blood pressure 74 mm[Hg] [...] SEEN {/LPF} (Normal) Range : NONE SEEN 20-Rio-13066:00 [QL] CULTURE, URINE, ROUTINE CULTURE Comments: CULTUR E, URINE, ROUTINE Micro Number: [id number] Test Status: Final Specimen Source: URINE Specimen Quality: Adequate Result: No Growth Plan of Care Name Dates Details Planned Observations Planned Goals not documented Planned Encounters Appointment; MURIEL LAWS D.O. On: 30-Apr-2020 15:00 Interventions Provided Medication Changes* Clotrimazole-Betamethasone 1-0.05 % External Cream - Start Discussion/Summary* 1. interstitial cystitis/ dyspareunia/ [...] not documented On: 01-Dec-2018 10:30 Appointment; MIMI RYEES APRN Encounter Diagnosis: Problem not documented On: 25-Dec-2018 18:45 Appointment; MILRDED CLARK M.D. Encounter Diagnosis: Problem not documented On: 25-Jan-2019 9:00 Appointment; MILDRED CLARK M.D. Encounter Diagnosis: Problem not documented On: 21-Feb-2019 15:30 Appointment; JOSHUA GRANDA M.D. Encounter Diagnosis: Problem not documented On: 25-Feb-2019 14:00 Appointment; MILDRED CLARK M.D. Encounter Diagnosis: Problem not documented On: 26-Feb-2019 11:30 Appointment; MIMI REYES APRN Encounter Diagnosis: Problem not documented On: 17-Apr-2019 10:00 Appointment; MILDRED CLRAK M.D. Encounter Diagnosis: Problem not documented On: [...]
--- OUTSIDE RECORDS SUMMARY | 2020-05-07 18:06 | XMS REPORT | Summary of Care ---
Author Author REGAN Santos M.A. Organization Unknown Address [facility] Phone Unavailable Care Team Providers Care Outside B2B Sales Name Role Phone Deanna Santos M.A. Unavailable Unavailable REYES BAG LINER, MIMI Unavailable Unavailable REYES CATCHER PLUG-C, MIMI THI Unavailable Unavailable Garland HEWITT, Joshua Unavailable Unavailable MAYTE HEWITT, MARYSE Villasenor Unavailable Unavailable BRIEN HEWITT, RONN Unavailable Unavailable DUANE HEWITT, BELEN ZAMORA Unavailable Unavailable DUANE HEWITT, NOAH GLOVER Unavailable Unavailable PAULETTE BINTA COATES Unavailable Unavailable DC HEWITT [place], KRYS ANTOINE [...] 0 Active Vitamin D (Ergocalciferol) 1.25 MG (80079 UT) Oral Capsule TAKE 1 CAPSULE WEEKLY [...] Immunization Name Dates Details Tdap Lot #: [id number] on: 06-Mar-2018 Influenza Comments: refused 07/18/19 Family [...] Comments: CULTUR E, URINE, ROUTINE Micro Number: [id number] Test Status: Final Specimen Source: URINE Specimen [...]
--- OUTSIDE RECORDS SUMMARY | 2020-05-07 18:06 | XMS REPORT | Summary of Care ---
Author Author REGAN Bradshaw R.N. Organization Unknown Address Unknown Phone Unavailable Care Team Providers Care Bander Name Role Phone REYES SHOE STITCHER ODD, MIMI Unavailable Unavailable REYES MOBILITY ARCHITECT MANAGER-C, MIMI THI Unavailable Unavailable Garland HEWITT, Joshua Unavailable Unavailable MAYTE HEWITT, MARYSE Villasenor Unavailable Unavailable BRIEN HEWITT, RONN Unavailable Unavailable DUANE HEWITT, BELEN ZAMORA Unavailable Unavailable DUANE HEWITT, NOAH GLOVER Unavailable Unavailable PAULETTE JAXON, BINTA BRADLEY Unavailable Unavailable DC HEWITT [place], KRYS ANTOINE Unavailable Unavailable MACKENZIE HEWITT, LEAH [...] 0 Active Vitamin D (Ergocalciferol) 1.25 MG (32122 UT) Oral Capsule TAKE 1 CAPSULE WEEKLY [...] Immunization Name Dates Details Tdap Lot #: [id number] on: 06-Mar-2018 Influenza Comments: refused 07/18/19 Family [...] 2 Status: Comments: Q-9 Adult Depression Screening [id number] Systolic blood pressure 102 mm[Hg] Status: Comments [...] Dates Details Instructions not documented Encounters Appointment; IMMI REYES APRN Encounter Diagnosis: Problem not documented [...]
--- OUTSIDE RECORDS SUMMARY | 2020-05-07 18:06 | XMS REPORT | Summary of Care ---
Author Author BRIEN Hyde, REGAN [facility] Unknown Address Unknown Phone Unavailable Care Team Providers Care Batt Machine Operator Name Role Phone REYES AMORTIZATION CLERK, MIMI Unavailable Unavailable REYES MULE SPINNER-C, MIMI THI Unavailable Unavailable Garland HEWITT, Joshua Unavailable Unavailable MAYTE HEWITT, MARYSE Villasenor Unavailable Unavailable BRIEN HEWITT, RONN Unavailable Unavailable DUANE HEWITT, NOAH GLOVER Unavailable Unavailable PAULETTE COATES [place], BINTA BRADLEY Unavailable Unavailab Jignesh HEWITT [place], KRYS ANTOINE Unavailable Unavailable MACKENZIE HEWITT, LEAH [...] Aspirin 81 MG TABS * Refills: 0 M.A. Active Vitamin D (Ergocalciferol) 1.25 MG (25999 UT) Oral Capsule TAKE 1 CAPSULE WEEKLY [...] Take one tablet daily * Refills: 0 M.A. Active Allergies and Adverse Reactions Name Dates Details Penicillins (Allergy) Reaction: Vomiting Status: Active Past Medical History Name Dates Details History of depression (V11.8, Z86.59) Status: Resolved History of endometriosis (V13.29, Z87.42 ) Status: Resolved History of pulmonary embolism (V12.55, Z 86.711) Status: Resolved History of uterine leiomyoma (V13.29, Z8 6.018) Status: Resolved Procedures Procedure Dates Details Polysomnography with pH probe Date: 23-Nov-2019 [[facility]] URINALYSIS, COMPLETE W/REFLEX TO CULTURE Date: 2019 History of section Completed History of Abdominoplasty Completed History of Breast augmentation Completed History of Salpingo-oophorectomy Complet ed History of Hysterectomy Completed Immunization Name Dates Details Tdap Lot #: [id number] on: 06-Mar-2018 Influenza Comments: refused 07/18/19 Family [...] COLOR URINE YELLOW (Normal) APPEARANCE CLEAR (Normal) 23-Nov-20190:00 [[facility]] URINALYSIS, COMPLETE W/REFLEX TO C ULTURE COLOR YELLOW (Normal) Range: YELLOW APPEARANCE CLEAR (Normal) Range: CLEAR SPECIFIC GRAVITY 1.027 (Normal) Range: 1.001-1 .035 PH 6.5 (Normal) [...] < OR = 2 SQUAMOUS EPITHELIAL CELLS 0-5 {/HPF} Range: < OR = 5 BACTERIA NONE SEEN {/HPF} (Normal) Range : NONE SEEN HYALINE CAST NONE SEEN {/LPF} (Normal) Range : NONE SEEN 23-Nov-20190:00 [Q] REFLEXIVE URINE CULTURE REFLEXIVE URINE CULTURE NO CULTURE INDIC ATED Plan of Care Name Dates Details Planned Observations Planned Goals not documented Interventions Provided Discussion/Summary* Urinalysis and Culture negative. Instructions Name Dates Details Instructions not documented Encounters Appointment; BINTA CALDWELL P.A. Encounter Diagnosis: Problem not documented On: 06-Mar-2018 11:00 Appointment; IMMI REYES APRN Encounter Diagnosis: Problem [...]
--- OUTSIDE RECORDS SUMMARY | 2020-05-07 18:07 | XMS REPORT | Summary of Care ---
Author Author REGAN LAWS D.O. Unknown Address Unknown Phone Unavailable Care Team Providers Care Yacht Captain Name Role Phone Alisson R.N., Jess Unavailable Unavailable REYES LARGE ANIMAL VETERINARIAN, MIMI Unavailable Unavailable VETO Alston, MURIEL Unavailable Unavailable REYES VICE PRESIDENT [employer], MIMI THI Unavailable Unavailable Garland HEWITT, Joshua Unavailable Unavailable MAYTE HEWITT, MARYSE Villasenor Unavailable Unavailable BRIEN HEWITT, RONN Unavailable Unavailable DUANE HEWITT, BELEN ZAMORA Unavailable Unavailable DUANE HEWITT, NOAH GLOVER Unavailable Unavailable PAULETTE PA, BINTA BRADLEY Unavailable Unavailable DC HEWITT [place], KRYS ANTOINE Unavailable Unavailable MACKENZIE HEWITT, LEAH [...] Neck pain, bilateral (723.1, M54.2) Status: Active Mastalgia in female (611.71, N64.4) Status: Active H/O breast implant (V43.82, Z98.82) Status: Active Pelvic pain in female (625.9, R10.2) Status: Active Low back pain (724.2, M54.5) [...] TAKE 1 TABLET DAILY. Quantity: 90 MIMI RYEES APRN * Start : 09-Mar-2017 Active Aspirin 81 MG TABS * Refills: 0 Active Vitamin D (Ergocalciferol) 1.25 MG (84142 UT) Oral Capsule TAKE 1 CAPSULE WEEKLY [...] * Quantity: 10 Refills: 0 DOUGHER D.O., MURIEL * Start : 08-Apr-2020 Active Allergies and [...] Immunization Name Dates Details Tdap Lot #: [id number] on: 06-Mar-2018 Influenza Comments: refused 07/18/19 Family [...] SEEN {/LPF} (Normal) Range : NONE SEEN [id number] [QL] CULTURE, URINE, ROUTINE CULTURE Comments: CULTUR E, URINE, ROUTINE Micro Number: [id number] Test Status: Final Specimen Source: URINE Specimen [...]
--- OUTSIDE RECORDS SUMMARY | 2020-05-07 18:07 | XMS REPORT | Summary of Care ---
Author Author REGAN LAWS D.O. Unknown Address Unknown Phone Unavailable Care Team Providers Care Plant Breeder Scientist Name Role Phone REYES MUD JACK NOZZLE WORKER, MIMI Unavailable Unavailable VETO Alston, MURIEL Unavailable Unavailable REYES NET SOFTWARE ENGINEER, MIMI THI Unavailable Unavailable Garland HEWITT, Joshua [...] Low back pain (724.2, M54.5) Status: Active Snoring (786.09, R06.83) Status: Active Stress incontinence, female (625.6, N39. 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) Status: Active Hyperlipidemia (272.4, E78.5) Status: Active Vitamin D deficiency (268.9, E55.9) Status: Active Urinary incontinence (788.30, R32) Status: Active Pelvic floor dysfunction (618.83, M62.89 ) Status: Active Moderate major depression (296.22, F32.1 ) Status: Active Nocturia (788.43, R35.1) Status: Active Urinary frequency (788.41, R35.0) Status: Active Urinary urgency (788.63, R39.15) Status: Active Interstitial cystitis (595.1, N30.10) Status: Active Dysuria (788.1, R30.0) Status: Active Vestibulitis, vulvar (625.71, N94.810) Status: Active Medications Name Dates Details Sertraline HCl - 50 MG Oral Tablet TAKE 1 TABLET DAILY. Quantity: 90 MIMI REYES APRN * Start : 09-Mar-2017 Active Aspirin 81 MG TABS * Refills: 0 Active Vitamin D (Ergocalciferol) 1.25 MG (35460 UT) Oral Capsule TAKE 1 CAPSULE WEEKLY [...] TABLET DAILY * Quantity: 30 Refills: 5 MMII REYES APRN Active Clotrimazole-Betamethasone 1-0.05 % External Cream APPLY AND RUB IN A THIN FILM TO AFFECTED AREAS TWICE DAILY.(AM AND PM). * Quantity: 1 Refills: 0 DOUGHER D.O., MURIEL * Start : 03-Apr-2020 Active 45 GM Tube Phenazopyridine HCl - 100 MG Oral Tablet * Refills: 0 * Start : 30-Apr-2020 Active Allergies and Adverse Reactions Name Dates [...] Immunization Name Dates Details Tdap Lot #: [id number] on: 06-Mar-2018 Influenza Comments: refused 07/18/19 Family History Name Dates Details Family history of High cholesterol (272. 0, E78.00) Status: Active Family history of hypertension (V17.49, Z82.49) Status: Active Name Dates Details Family history of diabetes mellitus (V18 .0, Z83.3) Status: Active Social History Name Dates Details - Status: Name Dates Details Never smoked tobacco (finding) Vital Signs Date Test Result Details [id number] Systolic blood pressure 122 mm[Hg] Status: Comments : Location: LUE; Position: Sitting Diastolic blood pressure 80 mm[Hg] Status: Comment s: Location: LUE; Position: Sitting Body height 59 in Status: Weight 115 lb Status: Body mass index (BMI) [Ratio] 23.23 kg/m2 Status: Body surface area Derived from formula 1.46 m2 S tatus: Body temperature 98.3 f Status: Comments: Me thod: Temporal Heart Rate 91 /min Status: 15-[id number] Systolic blood pressure 109 mm[Hg] Status: Comments [...] thod: Temporal Heart Rate 85 /min Status: Results Date Description Value Details Results not documented Plan of Care Name Dates Details Planned Observations Planned Goals not documented Planned Encounters Appointment; MURIEL LAWS D.O. On: 14-May-2020 12:00 Interventions Provided Discussion/Summary* 1. interstitial cystitis/ dyspareunia/ vestibulitis/ UU/ UF * - discussed diagnosis and condition, handouts given * - recommend follow IC diet, already knows citris and tomatoes are bothersome * - recommend elavil, zantac, prelief * - will trial steroid ointment for vestibulitis * - reports vesicare caused severe dry mouth and dry eye, will trial myrbetric * - discussed bladder instillations, vs hydrodistention, patient would like to trial instillations * 2. pelvic pain * - discussed PFPT and recommend * - also discussed role of endomeriosis and if symptoms do not improve may want to consider Or[place]issa vs depo lupron * RTC in 2 weeks for instillation. * 20 minutes were spent discussing plan of care face to face and next options * 10 minutes were spent giving instillation. Instructions Name Dates Details Instructions not documented [...] Diagnosis: Problem not documented On: 02-Apr-2020 10:00 Appointment; MURIEL LAWS D.O. Encounter Diagnosis: Problem not documented On: 30-Apr-2020 12:30
--- OUTSIDE RECORDS SUMMARY | 2020-05-07 18:07 | XMS REPORT | Summary of Care ---
Author Author REGAN Hunt M.A. nyabe Organization Unknown Address Unknown Phone Unavailable Care Team Providers Care Tinning Equipment Tender Name Role Phone REYES PROCUREMENT COORDINATOR, MIMI Unavailable Unavailable VETO Alston, MURIEL Unavailable Unavailable REYES PUBLIC WELFARE DIRECTOR, MIMI THI Unavailable Unavailable Garland HEWITT, Joshua Unavailable Unavailable MAYTE HEWITT, MARYSE Villasenor Unavailable Unavailable BRIEN HEWITT, RONN Unavailable Unavailable DUANE HEWITT, BELEN ZAMORA Unavailable Unavailable DUANE HEWITT, NOAH GLOVER Unavailable Unavailable PAULETTE JAXON, BINTA BRADLEY Unavailable Unavailable DC HEWITT [place], [...] 0 Active Vitamin D (Ergocalciferol) 1.25 MG (10494 UT) Oral Capsule TAKE 1 CAPSULE WEEKLY [...] Immunization Name Dates Details Tdap Lot #: [id number] on: 06-Mar-2018 Influenza Comments: refused 07/18/19 Family History Name Dates Details Family history of High cholesterol (272. 0, E78.00) Status: Active Family history of hypertension (V17.49, Z82.49) Status: Active Name Dates Details Family history of diabetes mellitus (V18 .0, Z83.3) Status: Active Social History Name Dates Details - Status: Name Dates Details Never smoked tobacco (finding) Vital Signs Date Test Result Details [id number] Systolic blood pressure 122 mm[Hg] Status: Comments [...] thod: Temporal Heart Rate 91 /min Status: 92-[id number] Systolic blood pressure 109 mm[Hg] Status: Comments [...] Planned Encounters Appointment; MURIEL LAWS D.O. On: 28-May-2020 15:00 Interventions Provided Discussion/Summary* 1. interstitial cystitis/ dyspareunia/ [...]
[2020-05-07 18:12] LABS: PARTIAL THROMBOPLASTIN TIME 26.4 seconds (23.8-35.5)
[2020-05-07 18:22] LABS: ALANINE AMINOTRANSFERASE 19 IU/L (0-55); ALBUMIN 4.2 g/dL (3.5-5.0); ALBUMIN/GLOBULIN RATIO 1.1 (0.8-2.0); ALKALINE PHOSPHATASE 99 IU/L (40-150); ANION GAP 16.6 mmol/L (8-16); BLOOD UREA NITROGEN 18 mg/dL (7-26); BUN/CREATININE RATIO 21 (6-25); CALCIUM 9.2 mg/dL (8.4-10.2); CARBON DIOXIDE 21 mmol/L (22-29); CHLORIDE 104 mmol/L (98-107); CREATINE KINASE 88 IU/L (29-168); CREATININE, SERUM 0.84 mg/dL (0.57-1.11); EST GLOMERULAR FILTRATION RATE > 60 ML/MIN (60-); GLUCOSE 101 mg/dL (74-118); POTASSIUM 3.6 mmol/L (3.5-5.1); SODIUM 138 mmol/L (136-145)
[2020-05-07 18:33] LABS: BILIRUBIN,URINE NEGATIVE (NEGATIVE); CLARITY,URINE CLEAR (CLEAR); COLOR,URINE YELLOW (YELLOW); KETONES,URINE NEGATIVE (NEGATIVE); LEUKOCYTE ESTERASE ,URINE NEGATIVE (NEGATIVE); NITRITE,URINE NEGATIVE (NEGATIVE); PREGNANCY TEST, URINE NEGATIVE (NEGATIVE); PROTEIN,URINE DIPSTICK NEGATIVE (NEGATIVE); URINE UROBILINOGEN 0.2 mg/dL (0.2 - 1)
[2020-05-07 18:37] LABS: INR 0.87; PROTHROMBIN TIME 12.2 seconds (11.9-14.5)
[2020-05-07 18:43] LABS: BACTERIA,URINE MODERATE /HPF; RBC,URINE 0-5 /HPF (0-5)
--- NOTE | 2020-05-07 19:09 | Diagnostic Imaging Report ---
CT chest pulmonary embolism protocol CPT code: 22235 INDICATION: ^pe protocol, pt with h/o pe in past, now with sob ^[id number] ^1835 ^Y TECHNIQUE: Thin collimation axial images obtained through the level of the pulmonary arteries with additional imaging through the chest following the uneventful administration of 100 cc of low osmolar, nonionic intravenous contrast. Images reconstructed into coronal and sagittal MIPs for complete evaluation of the tortuous and overlapping pulmonary vascular structures and to reduce patient radiation dose. RADIATION DOSE: Total DLP: 386.6 mGy*cm Estimated effective dose: (DLP x 0.015 x size factor) mSv CTDIvol has been reviewed. It is below the limits set by the Radiation Protocol Committee (RPC). Dose reduction techniques used: Automated exposure control, adjustment of the mAs and/or kVp according to patient size, standardized low-dose protocol, and/or iterative reconstruction technique. COMPARISON: CT abdomen 05/24/2019. FINDINGS: Pulmonary artery: No filling defects are appreciated within the main, left, right, lobar or visualized segmental pulmonary arteries to suggest embolism. Aorta: The thoracic aorta is not aneurysmal. No evidence for dissection. The left vertebral artery arises to be from the aortic arch. Lymph nodes: No enlarged axillary, supraclavicular, mediastinal, or hilar lymph nodes. Thyroid: Visualized portions are normal. Mediastinum: The heart is normal in size. No pericardial effusion. The esophagus is collapsed but normal in appearance. Lungs: Right Lung: Mild apical pleural-parenchymal thickening. No infiltrate or nodule. Left Lung: Mild apical pleural-parenchymal thickening. No infiltrate or nodule. Small focus of subsegmental atelectasis in the inferior lingula. Airways: Clear. Pleura: No pleural effusion or pleural-based mass. Abdomen: Visualized portions are normal in appearance. Bones: No focal osseous lesions. Soft tissues: Bilateral breast prostheses appear intact.. IMPRESSION: 1. No evidence of pulmonary embolus or aortic dissection. 2. Mild biapical pleural parenchymal thickening. Please correlate with history of reactive airways disease. No evidence of pulmonary infiltrate or nodule. Signed by: Dr. Quincy Bae MD on 05/07/2020 7:05 PM
[2020-05-07 19:50] VITALS: BP 114/84
== END 2020-05-07 20:05 | disposition home or self-care (01) ==
LOC: ER 17:40
DX: R00.2 Palpitations (principal); R06.02 Shortness of breath; F41.9 Anxiety disorder, unspecified; F41.0 Panic disorder [episodic paroxysmal anxiety]; Z86.711 Personal history of pulmonary embolism
CPT/HCPCS: 36415; 71260; 80053; 81001; 81025; 82550; 82553; 84484; 85025; 85610; 85730; 93005; 99284